=== PATIENT | female | born 1940 | race Caucasian/White ===

== ENCOUNTER 2016-09-09 13:33 | Inpatient (IN) | payer OTHER, MEDICARE ==
[~2016-09-09] VITALS: Ht 152.4 cm; Wt 154.0 kg
[~2016-09-09 13:33] MED LIST: ALBUTEROL 3 ML3 ML INH; AMLODIPINE10 MG PO; ANTIVERT 25MG #1 PAC PO; ATORVASTATIN CA80 MG PO; CHILDREN'S ASPI81 M1 PO; CIPRO 250MG250 MG PO; COREG 25 MG TAB25 MG PO; FAMOTIDINE20 MG PO; HYDRALAZINE HCL10 MG PO; LANTUS SOLOS100 U/ML SC; LASIX20 MG PO; LASIX40 MG PO; LIDODERM 5% PAT1 PAT EXT; NOVOLOG100 U/ML SC; NOVOLOG100 UNIT/2; ULTRAM50 M1 PO; VALSARTAN320 MG PO
--- NOTE | 2016-09-09 13:49 | ED CARDIAC/CP/PALPITATIONS ---
History of Present Illness General Chief Complaint: Dyspnea (COPD, CHF, Other) Stated Complaint: SOB Source: patient, old records Exam Limitations: no limitations Vital Signs & Intake/Output Vital Signs & Intake/Output Vital Signs Date Time Temp Pulse Resp B/P Pulse O2 O2 Flow FiO2 Ox Delivery Rate 09/09 2139 98.2 52 20 142/82 92 09/09 2131 Nasal Cannula 09/09 204 97.8 83 20 160/90 96 Aerosol Mask 09/09 1856 95 Nasal 45% Cannula 09/09 1832 80 158/90 96 Aerosol Mask 09/09 1622 138/88 09/09 1610 93 Nasal 45% Cannula 09/09 1503 56 94 09/09 1403 90 Nasal 5.0L Cannula 09/09 1335 79 22 144/91 90 Nasal 4.0L Cannula Allergies Coded Allergies: Fish Containing Products (Intermediate, RASH, VOMITING 09/09/16) SEAFOOD Penicillins (Mild, RASH 09/09/16) adhesive tape (Mild, RASH AND BURNING 09/09/16) alcohol (BURNING SKIN 09/09/16) shellfish derived (RASH, VOMITING 09/09/16) metformin (Intermediate, DIARRHEA, GI UPSET 09/09/16) Triage Nurses Notes Reviewed? yes Onset: Gradual Duration: getting worse Timing: recent history Radiation: no radiation Activities at Onset: activity HPI: Patient is a 76-year-old female with past medical history of CHF currently on twice a day Lasix, DANYELLE, diabetes type 2 insulin-dependent, hypertension, secondary heart block and which patient's oim consultant Dr. Lawrence who is brought in by ambulance for concerns of worsening shortness of breath. Patient states that she is compliant with medications Patient states that she is on 3.5 L at all times of oxygen supplementation however is having unrelieved shortness of breath symptoms. Patient states that she has noticed dyspnea on exertion. Denies any fever, chills, chest pain arm pain jaw pain nausea vomiting diarrhea. Patient does state that she has chronic lower extremity swelling with no changes. Denies any calf swelling hemoptysis recent travel or recent surgery or history of DVT or PE (DOYLE DEMARCO) Reconcile Medications Aspirin (Children's Aspirin) 81 MG TAB 1 TAB PO DAILY HEART HEALTH (Reported) Atorvastatin Calcium (Lipitor) 80 MG TAB 1 TAB PO DAILY CHOLESTEROL (Reported ) Famotidine 20 MG TAB 1 TAB PO DAILY GI (Reported) Furosemide (Lasix) 40 MG TAB 1 TAB PO BID htn HYDRALAZINE HCL (Hydralazine HCl) 10 MG TAB 10 MG PO TID HTN Insulin Aspart, Recombinant (Novolog) 100 U/ML DIANN 40 U SC QPM DIABETES ( Reported) Insulin Aspart, Recombinant (Novolog) 100 U/ML DIANN 35 U SC BID dm (Reported) Insulin-Lantus (Lantus) 100 UNIT/ML VIAL 45 UNITS SC BID DM (Reported) Meclizine HCl 25 MG TABLET 1 TAB PO PRN VERTIGO (Reported) Tramadol HCl (Ultram) 50 MG TABLET 1 TAB PO PRN PAIN (Reported) Valsartan 320 MG TAB 1 TAB PO DAILY HEART (Reported) (CHRISTINA GARCÍA,CHANDRA) Past History Travel History Traveled to [place] past 21 day No Medical History Any Pertinent Medical History? see below for history Neurological: peripheral neuropathy Cardiovascular: CHF, hypertension, hyperlipidemia, ?PVC'S Gastrointestinal: ACID REFLUX Renal: chronic kidney disease Endocrine: diabetes Other Medical Hx: Morbid obesity, second degree AV block, chronic edema History of MRSA: No History of VRE: No History of CDIFF: No Pneumonia Vaccine: 06/14/15 Influenza Vaccine: 06/14/15 Surgical History Surgical History: cholecystectomy, right knee Psychosocial History Who do you live with Patient/Self Services at Home None What is your primary language Turkmen Family History Family History, If Any: BROTHER FH: brain tumor Hx Contributory? No (DOYLE DEMARCO) Review of Systems Review of Systems Constitutional: Reports: no symptoms. EENTM: Reports: no symptoms. Respiratory: Reports: see HPI, short of breath. Denies: cough. Cardiovascular: Reports: see HPI, peripheral edema. GI: Reports: no symptoms. Genitourinary: Reports: no symptoms. Musculoskeletal: Reports: no symptoms. Skin: Reports: no symptoms. Neurological/Psychological: Reports: no symptoms. Hematologic/Endocrine: Reports: no symptoms. Immunologic/Allergic: Reports: no symptoms. All Other Systems: Reviewed and Negative (DOYLE DEMARCO) Physical Exam Physical Exam General Appearance: alert, awake, mild distress, obese Cardiovascular: regular rate/rhythm Comments: HEENT: Normal EENT exam, extraocular motion intact, no nystagmus. Pupils equally round and reactive to light. Nose is atraumatic. External auditory canal and Tympanic membranes clear. Pharynx normal. No swelling or edema. Neck: Supple, no lymphadenopathy, normal range of motion without pain or tenderness Back: Nontender, no CVA tenderness. Cardiovascular: Regular rate and rhythms no murmurs, normal JVP Respiratory: Chest nontender mild respiratory distress 2-4 word sentences Abdomen: Soft, nontender nondistended, no appreciable organomegaly. Normal bowel sounds. No ascites Extremity: +1 bilateral right lower extremity pitting edema- Left lower extremity noted +3 pitting edema no calf tenderness to palpation, normal and equal pulses. Neuro: Alert oriented x3, motor sensory normal, cranial nerves II through XII grossly intact. Skin: No appreciable rash on exposed skin, skin is warm and dry. Psych: Mood and affect is normal, memory and judgment is normal. Core Measures ACS in differential dx? No Severe Sepsis Present: No Septic Shock Present: No (LAMAR LOVELL,DOYLE) Progress Differential Diagnosis: AMI, aortic dissection, atrial fibrillation, cholecystitis, CHF/pulm edema, costochondritis, hyperkalemia, hypovolemia, hyperthyroid, hyperventilation, intracranial hemorrhage, musculoskeletal pain, myocarditis, pancreatitis, pericarditis, pneumonia, pneumothorax, PSVT, pulmonary embolism, PUD/GERD, PVCs/PACs, respiratory failure, rib fracture, sepsis, unstable angina, V-fib/V-Tach, WPW syndrome Plan of Care: Orders Procedure Date/time Status Vital Signs 09/09 2130 Active Teach/Educate 09/09 2130 Active Nutritional Intake, Monitor 09/09 2130 Active Isolation 09/09 2130 Active Patient Care Conference 09/09 2130 Active Activity/Ambulation 09/09 2130 Active CTA CHEST-PULMONARY EMBOLISM 09/09 2036 Active THERAPIST ORDERS 09/09 1850 Complete Admit to inpatient 09/09 1718 Active Patient Data 09/09 1704 Active LACTIC ACID 09/09 1659 Active ARTERIAL BLOOD GAS (GEN) 09/09 1359 Complete Telemetry/Electric Motor Assembler And Tester 09/09 1359 Active THYROID STIMULATING HORMONE 09/09 1359 Complete TROPONIN LEVEL 09/09 1359 Complete MAGNESIUM 09/09 1359 Complete LACTIC ACID 09/09 1359 Complete FREE T4 09/09 1359 Complete D-DIMER 09/09 1359 Complete COMPREHENSIVE METABOLIC PANEL 09/09 1359 Complete CBC WITHOUT DIFFERENTIAL 09/09 1359 Complete B-TYPE NATRIURETIC PEP (BNP) 09/09 1359 Complete FingerStick- Glucose 09/09 1357 Active Intake & Output 09/09 1355 Active EKG 09/09 1334 Active BIPAP 09/09 UNK Complete Nursing Misc 09/09 UNK Active Laboratory Tests 09/09/16 1438: Anion Gap 7, Estimated GFR 44 L, BUN/Creatinine Ratio 19.2, Glucose 65, Lactic Acid 1.1, Calcium 8.6, Magnesium 2.0, Total Bilirubin 0.5, AST 24, ALT 23, Alkaline Phosphatase 78, Troponin I 0.09, Eez-I-Mbxbrhjsglj Pept 2470 H, Total Protein 6.2 L, Albumin 3.0 L, Globulin 3.2, Albumin/Globulin Ratio 0.9 L, TSH 1.130, Free T4 1.88, D-Dimer 815 H, CBC w Diff NO MAN DIFF REQ, RBC 4.40, MCV 95.5, MCH 31.9 H, RDW 14.7 H, MPV 7.3 L, Gran % 80.7 H, Lymphocytes % 8.7 L , Monocytes % 9.0, Eosinophils % 1.0, Basophils % 0.6, Absolute Granulocytes 6.3 , Absolute Lymphocytes 0.7 L, Absolute Monocytes 0.7 H, Absolute Eosinophils 0.1, Absolute Basophils 0, PUBS MCHC 33.3 09/09/16 1420: pH 7.32 L, pCO2 61 *H, pO2 59 L, HCO3 32 H, ABG O2 Sat (Measured) 89.0 L, Carboxyhemoglobin 1.0 L, O2 Concentration % 6L, O2 Delivery Method NC, Phlebotomy Draw Site RIGHT RADIAL On initial exam patient was noted to have respiratory distress and which 5 L of nasal cannula oxygenation was not helping patient in which she was noted to have 85% oxygen saturation. Respiratory came down and initially tried BiPAP however patient did not tolerate this well and was she was then put on high flow oxygen supplementation and states she has significant resolution of shortness of breath. ABG shows concerns of CO2 retention and hypoxia Patient did have an elevation of d-dimer and which I did orderED a CT angiogram of patient's chest to rule out pulmonary embolism however monitor technician did place a call and stated that patient was unable to tolerate this image in the emergency room and requested this to be canceled due to a stat order, this was canceled I discussed by concern of CT angiogram evaluation with accepting physician DR. SPAIN who is aware that this was not performed in the emergency room Due to history of present illness and exam findings there is suspicion of CHF howeversuspicion of infectious respiratory process. Patient was given IV Lasix Discussed telemetry admission with who will take over FOR The patient' s care and evaluated patient and agrees with disposition and plan (LAMAR LOVELL,DOYLE) D/W DR SPAIN FOR ADMISSION TO TELEMETRY. (CHRISTINA GARCÍA,CHANDRA) Diagnostic Imaging: Viewed by Me: Radiology Read. Radiology Impression: SEE COMMENTS Initial ED EK BPM NORMAL SINUS RHYTHM, mOBITZ 1 av BLOCK wENCKEBACH, rbbb Prior EKG: unchanged Comments: PATIENT: CINTHIA AZEVEDO PRESENT AGE: 76 PATIENT ACCOUNT NO: [id number] : 41 LOCATION: [facility] ORDERING PHYSICIAN: DOYLE LOVELL SERVICE DATE: 09/09/164313 EXAM TYPE: RAD - XRY-PORTABLE CHEST XRAY EXAMINATION: XR PORTABLE CHEST CLINICAL INFORMATION: Shortness of breath. Congestive heart failure. COMPARISON: CTA chest 09/21/2015. Portable chest x-ray 09/21/2015. TECHNIQUE: Portable view of the chest was obtained. FINDINGS: Significantly limited exam secondary to patient body habitus and pulmonary hypoinflation. Bibasilar airspace opacities are indeterminate and could reflect atelectasis given low lung volumes or soft tissue attenuation given patient body habitus. However, bibasilar infiltrates secondary to infection or pulmonary edema cannot be entirely excluded. No large pleural effusions or pneumothoraces are identified. Cardiomediastinal contours are obscured. No visible acute osseous abnormality. IMPRESSION: Significantly limited exam secondary to patient body habitus and significant pulmonary hypoinflation. Bibasilar airspace opacities are indeterminate and could reflect atelectasis given low lung volumes although superimposed infection or pulmonary edema cannot be excluded in the appropriate clinical setting. PATIENT: CINTHIA AZEVEDO PRESENT AGE: 76 PATIENT ACCOUNT NO: [id number] : 41 LOCATION: [facility] ORDERING PHYSICIAN: DOYLE LOVELL SERVICE DATE: 09/09/162763 EXAM TYPE: US - US-EXT BILAT VENOUS DOPPLER EXAMINATION: US TRIPLEX LOWER EXTREMITY, BILATERAL CLINICAL INFORMATION: Bilateral lower extremity swelling. COMPARISON: None. TECHNIQUE: Color-flow triplex imaging with spectral analysis and compression Doppler were performed on the bilateral lower extremities. The examination is significantly limited secondary to body habitus, portable technique and inability of the patient to comply fully with the technologist's instructions. FINDINGS: Respiratory variation, normal compression and augmented flow are noted throughout the bilateral lower extremities. The visualized common femoral vein, superficial femoral vein, profunda femoral vein, popliteal vein and mid calf peroneal and posterior tibial venous segments show no evidence of deep venous thrombosis. There is no Estes's cyst. IMPRESSION: Normal triplex scan without evidence of deep venous thrombosis involving the bilateral lower extremities. Examination is limited, as above. (DOYLE DEMARCO) Departure Departure Disposition: STILL A PATIENT Condition: Fair Clinical Impression Primary Impression: CHF (congestive heart failure) Secondary Impressions: Respiratory failure Referrals: ALLEY GARCÍA,TATI APARICIO (PCP/Family) Referred to [facility] as new patient No Departure Forms: Customer Survey General Discharge Information Admission Note Spoke With: SUSAN SPAIN MD Documentation of Exam: Documentation of any treatments & extenuating circumstances including Concerns Regarding Discharge (functional status, medication knowledge or non-compliance, living conditions, etc.) that warrant an admission rather than observation: [ Discussed patient with Dr. SPAIN who agrees with telemetry admission for concerns of CHF which patient requires IV diuresis, cardiology consult, repeat labs, telemetry monitoring, echocardiogram, and further evaluation to rule out PE. Outpatient treatment at this time would be medically harmful due to critical status of respiratory failure ] (DOYLE DEMARCO) PA/DEBURRING AND TOOLING MACHINE OPERATOR Co-Sign Statement Statement: ED Attending supervision documentation- [X] I saw and evaluated the patient. I have also reviewed all the pertinent lab results and diagnostic results. I agree with the findings and the plan of care as documented in the PA's/DEBURRING AND TOOLING MACHINE OPERATOR's documentation. [X] I have reviewed the ED Record and agree with the PA's/DEBURRING AND TOOLING MACHINE OPERATOR's documentation. [] Additions or exceptions (if any) to the PAs/DEBURRING AND TOOLING MACHINE OPERATOR's note and plan are summarized below: [] (CHRISTINA GARCÍA,CHANDRA) Critical Care Note Critical Care Note Critical Care Time: 30-74 min (DOYLE DEMARCO)
--- NOTE | 2016-09-09 14:41 | RADIOLOGY REPORT ---
EXAMINATION: XR PORTABLE CHEST CLINICAL INFORMATION: Shortness of breath. Congestive heart failure. COMPARISON: CTA chest 09/21/2015. Portable chest x-ray 09/21/2015. TECHNIQUE: Portable view of the chest was obtained. FINDINGS: Significantly limited exam secondary to patient body habitus and pulmonary hypoinflation. Bibasilar airspace opacities are indeterminate and could reflect atelectasis given low lung volumes or soft tissue attenuation given patient body habitus. However, bibasilar infiltrates secondary to infection or pulmonary edema cannot be entirely excluded. No large pleural effusions or pneumothoraces are identified. Cardiomediastinal contours are obscured. No visible acute osseous abnormality. IMPRESSION: Significantly limited exam secondary to patient body habitus and significant pulmonary hypoinflation. Bibasilar airspace opacities are indeterminate and could reflect atelectasis given low lung volumes although superimposed infection or pulmonary edema cannot be excluded in the appropriate clinical setting.
[2016-09-09 14:50] LABS: ABSOLUTE BASOPHIL COUNT 0 /CUMM (0.0-0.2); ABSOLUTE EOSINOPHIL COUNT 0.1 /CUMM (0.0-0.7); ABSOLUTE GRANULOCYTE CT 6.3 /CUMM (1.4-6.5); ABSOLUTE LYMPH COUNT 0.7 /CUMM (1.2-3.4); ABSOLUTE MONOCYTE COUNT 0.7 /CUMM (0.10-0.60); BASOPHIL % 0.6 % (0.0-2.0); GRANULOCYTE % 80.7 % (42.2-75.2); MEAN CORPUSCULAR HGB 31.9 PG (27.0-31.0); MEAN CORPUSCULAR HGB CONC 33.3 G/DL (33.0-37.0); MEAN CORPUSCULAR VOLUME 95.5 FL (81.0-99.0); MEAN PLATELET VOLUME 7.3 FL (7.4-10.4); PLATELET COUNT 220 /CUMM (130-400); RBC DISTRIBUTION WIDTH 14.7 % (11.5-14.5); WHITE BLOOD CELL COUNT 7.8 /CUMM (4.8-10.8)
--- NOTE | 2016-09-09 18:31 | ULTRASOUND REPORT ---
EXAMINATION: US TRIPLEX LOWER EXTREMITY, BILATERAL CLINICAL INFORMATION: Bilateral lower extremity swelling. COMPARISON: None. TECHNIQUE: Color-flow triplex imaging with spectral analysis and compression Doppler were performed on the bilateral lower extremities. The examination is significantly limited secondary to body habitus, portable technique and inability of the patient to comply fully with the technologist's instructions. FINDINGS: Respiratory variation, normal compression and augmented flow are noted throughout the bilateral lower extremities. The visualized common femoral vein, superficial femoral vein, profunda femoral vein, popliteal vein and mid calf peroneal and posterior tibial venous segments show no evidence of deep venous thrombosis. There is no Estes's cyst. IMPRESSION: Normal triplex scan without evidence of deep venous thrombosis involving the bilateral lower extremities. Examination is limited, as above.
[2016-09-09] MEDS ORDERED: LANTUS100 UNIT/1 SC (18:40)
[2016-09-09] MEDS ORDERED: MECLIZINE HCL25 MG PO (18:44)
--- NOTE | 2016-09-09 19:49 | History & Physical ---
LOPEZ KELLY MD 09/09/161947: General Information and HPI Source of Information: patient, old records Exam Limitations: no limitations History of Present Illness: Patient is a 76 year old morbidly obese female with significant past medical history of type 2 diabetes, peripheral neuropathy, GERD, hypertension, hyperlipidemia, chronic kidney disease, secondary heart block, CHF on twice a day Lasix, COPD on 3.5 liter of oxygen at home presented to the ED with gradually progressive shortness of breath. According to the patient patient started having nausea, vomiting and diarrhea after she had flu shot and which recovered back over the counter medication. Later she started having shortness of breath along with increase bilateral pedal edema. That's why she increases the amount of Lasix. She is taking from twice a day to 3 times a day. She denies chest pain, fever, chills, abdominal pain, diarrhea, constipation, dysuria. Patient claims that she is noncompliant with the medication. After coming to the telemetry, patient refuses for CTA Allergies/Medications Allergies: Coded Allergies: Fish Containing Products (Intermediate, RASH, VOMITING 09/09/16) SEAFOOD Penicillins (Mild, RASH 09/09/16) adhesive tape (Mild, RASH AND BURNING 09/09/16) alcohol (BURNING SKIN 09/09/16) shellfish derived (RASH, VOMITING 09/09/16) metformin (Intermediate, DIARRHEA, GI UPSET 09/09/16) Home Med list Aspirin (Children's Aspirin) 81 MG TAB 1 TAB PO DAILY HEART HEALTH (Reported) Atorvastatin Calcium (Lipitor) 80 MG TAB 1 TAB PO DAILY CHOLESTEROL (Reported ) Famotidine 20 MG TAB 1 TAB PO DAILY GI (Reported) Furosemide (Lasix) 40 MG TAB 1 TAB PO BID htn HYDRALAZINE HCL (Hydralazine HCl) 10 MG TAB 10 MG PO TID HTN Insulin Aspart, Recombinant (Novolog) 100 U/ML DIANN 40 U SC QPM DIABETES ( Reported) Insulin Aspart, Recombinant (Novolog) 100 U/ML DIANN 35 U SC BID dm (Reported) Insulin-Lantus (Lantus) 100 UNIT/ML VIAL 45 UNITS SC BID DM (Reported) Meclizine HCl 25 MG TABLET 1 TAB PO PRN VERTIGO (Reported) Tramadol HCl (Ultram) 50 MG TABLET 1 TAB PO PRN PAIN (Reported) Valsartan 320 MG TAB 1 TAB PO DAILY HEART (Reported) Past History Travel History Traveled to [place] past 21 day No Medical History Neurological: peripheral neuropathy Cardiovascular: CHF, hypertension, hyperlipidemia, ?PVC'S Gastrointestinal: ACID REFLUX Renal: chronic kidney disease Endocrine: diabetes Other Medical Hx: Morbid obesity, second degree AV block, chronic edema History of MRSA: No History of VRE: No History of CDIFF: No Pneumonia Vaccine: 06/14/15 Influenza Vaccine: 06/14/15 Surgical History Surgical History: cholecystectomy, right knee Past Family/Social History Family History Relations & Conditions if any BROTHER FH: brain tumor Psychosocial History Services at Home: None Review of Systems Review of Systems Constitutional: Reports: weakness. Denies: fever, malaise, unexplained weight loss. EENTM: Denies: no symptoms. Cardiovascular: Reports: edema, orthopena, palpitations, peripheral edema. Denies: syncope. Respiratory: Reports: orthopnea, short of breath. Denies: cough, hemoptysis, sputum production, stridor, wheezing. GI: Denies: abdominal pain, bloating, constipation, diarrhea, distention, nausea, bloody stool. Genitourinary: Denies: discharge, dysuria, frequency, hematuria. Musculoskeletal: Denies: back pain. Skin: Denies: no symptoms. Neurological/Psychological: Denies: no symptoms. Exam & Diagnostic Data Last 24 Hrs of Vital Signs/I&O Vital Signs Date Time Temp Pulse Resp B/P Pulse O2 O2 Flow FiO2 Ox Delivery Rate 09/09 2139 98.2 52 20 142/82 92 09/09 2131 Nasal Cannula 09/09 2041 97.8 83 20 160/90 96 Aerosol Mask 09/09 1856 95 Nasal 45% Cannula 09/09 1832 80 158/90 96 Aerosol Mask 09/09 1622 138/88 09/09 1610 93 Nasal 45% Cannula 09/09 1503 56 94 09/09 1403 90 Nasal 5.0L Cannula 09/09 1335 79 22 144/91 90 Nasal 4.0L Cannula Intake & Output 09/09 1600 09/09 0800 09/09 0000 Intake Total 0 Output Total Balance 0 Intake, Oral 0 Patient 149.685 kg Weight Physical Exam General Appearance Alert, Oriented X3, Cooperative, No Acute Distress Skin No Rashes, No Breakdown HEENT Atraumatic, PERRLA, EOMI Neck Supple, No JVD Cardiovascular Regular Rate, Normal S1, Normal S2 Lungs Clear to Auscultation, decrease air entry bilaterally Abdomen Soft, No Tenderness, distended Neurological Normal Speech Extremities bilateral leg swelling, pitting edema, left is more worse than the right Vascular cannot be assessed properly due to severe edema Assessment/Plan Assessment: Assement and plan - Vital signs at the time of admission-temperature 97.8, pulse 83, respiratory rate 20, blood pressure 160/90, SPO2 96% on aerosol mask. ABG - pH -7.32, PCO2 61, PO2 59, bicarbonate 32 Chest [id number]-rru-kqycjeyqm hypoinflation. Bibasilar airspace opacities are indeterminate and could reflect atelectasis given low lung volumes. Venous Doppler study-Normal triplex scan without evidence of deep venous thrombosis PFT(01/03/2016) -Moderately severe restrictive ventilatory defect with exercise induced desaturation and resting hypoxemia. There is evidence of increased resting bronchomotor tone. Problem list - Hypercarbic respiratory failure under evaluation CHF on Lasix Hypertension Hyperlipidemia Chronic kidney disease type 2 Diabetes mellitus Morbid obesity Plan - Hypercarbic respiratory failure under evaluation probably obesity hypoventilation syndrome/COPD acute exacerbation under evaluation,on 3.5 liter of oxygen at home * We will take the pulmonology consult and followed their recommendation * TRC/nebulization * We'll continue oxygen with goal of SPO2 of more than 92% * We will do CTA to r/o PE * Venous Doppler study showed no evidence of DVT * CXR is showing bibasilar atelectasis, we will do sputum culture to r/o infection. * Vitals every shift * If patient become febrile, we will take culture and consider antibiotics. CAD /CHF on Lasix * We will check serial EKG/Troponin to rule out ACS * We will place cardiology consult Dr Lawrence and follow their recms * We will f/u echo * We will continue Aspirin. * We lizbet give her Ing lasix 40mg BID * Strict I/O charting Hypertension * We will continue home medication Hydralazine Hyperlipidemia * We will continue home medication tab atorvastatin 80mg HS Chronic kidney disease * We will stop nephrotoxic medication * regulary monitor BEP * If creatinine get worse than will consider nephrology consult type 2 Diabetes mellitus * Patient presented with hypoglycemia. * We will check blood sugar every 4 hrly and give Novalog according to sliding scale. Morbid obesity * We will advise for weight loss diet and exercise after she get recovered. Diet - Heart Healthy diet DVT prophylaxis -Heparin /ALPS Code Status - FC As Ranked By This Provider Problem List: 1. CHF (congestive heart failure) 2. Dyslipidemia 3. Diabetes mellitus type 2 4. Respiratory failure 5. Hypercapnic respiratory failure Core Measures/Miscellaneous Acute Coronary Syndrome ACS Diagnosis: No Cerebrovascular Accident CVA/TIA Diagnosis: No Congestive Heart Failure CHF Diagnosis: No Venous Thromboembolism VTE Risk Factors: Age > 40, Obesity VTE Prophylaxis Ordered Inpt: Mechanical (ALPS/TEDS) No Mech VTE prophylaxis d/t: No contraindications No VTE Pharm Prophylaxis d/t: No contraindications VTE Diagnosis: No VTE Type: NONE VTE Confirmed by (Test): DUPLEX SCAN LOWER EXT Severe Sepsis Severe Sepsis Present: No Septic Shock Septic Shock Present: No Miscellaneous Documentation Attending Case Discussed With: JUDIT GARCÍAKELLEE Primary Care Physician: TATI HAGER MD Patient sees these Specialists Dr de la torre Level of Patient Care: Telemetry SID GARCÍA, [facility] 09/09/162033: Attending MD Review Statement Attending Statement Attending MD Statement: examined this patient, discuss w/resident/PA/COMMISSIONED SECURITY OFFICER, agreed w/resident/PA/COMMISSIONED SECURITY OFFICER Attending Assessment/Plan: 76 yo morbidly obese F with h/o T2DM, HTN, chronic diastolic CHF on baseline 3.5 LO2 via NC, CKD stage 3B, second degree heart block type 1, is here for worsening dyspnea on exertion and rest. She reports it started around 4 weeks back. She got her flu shot, after she was persistently sick flu like symptoms associated with nausea and vomiting. Her PCP advised her to come for a follow up but patient did not wish to travel to [place]. Patient has a visiting nurse who asked her to be evaluated in the ER last week, but patient wished to spend [place] with family. Over the past week, she has had cough with light doty to clear phlegm, nonbloody diarrhea, gradually worsening dyspnea on minimal exertion, orthopnea and LE edema extending to her abdomen. She did admit to missing a few doses of lasix, as she forgets to take them. Denies fever, chills, chest pain, lightheadedness or palpitations. She has an aide who comes in few hours everyday. She walks with walker or cane. Not very active, drinks diet tea/ soda, gets meals on wheels, no added salt. Cardio [facility] Roel [facility] She was last admitted in Sep 2015 for CHF exacerbation, was to follow up with Pulm for sleep study which has not been done. PFT (December 2015) shows moderately severe restrictive ventilatory defect with exercise induced desaturation and resting hypoxemia, increased resting bronchomotor tone. Vitals: afebrile, HR 80's, BP 140/80, sats 90% on 5L ? 92% on high flow nasal cannula (45%). Chest exam: reduced breath sounds, LE 3+ pitting edema (L>R), edema extending to lower abdomen. Labs: D-dimer 815, bicarb 35, BUN 23, creat 1.2 (baseline), trop neg, proBNP 2470, AB.32/61/59/32 (respiratory acidosis compensated with metabolic alkalosis). CXR: bibasilar opacities ?atelectasis vs. pulmonary edema. LE doppler neg for DVT. EKG: SR, RBBB (old), no acute changes. Echo (2015) EF > 60%, LVH. 1. Acute on chronic hypoxic and hypercarbic respiratory failure in the setting of acute on chronic diastolic CHF with ?restrictive lung disease, possible obesity hypoventilation syndrome ?sleep apnea. Patient received IV lasix in ER, urine output not measured. She also refused Bipap in ER, she was then placed on high flow nasal cannula. CTA chest was ordered but patient felt anxious and refused it as well. Will keep on TRC nebs, IST, strict I/O's, daily weights, IV lasix 40 BID, rule out ACS, Echo, Cardio consult. One dose of solumedrol given, will hold off further steroids. Pulm consult in AM. No need for antibiotics. 2. CKD stable. Monitor renal functions while on lasix. Ct. valsartan. DVT ppx Hep SC. Full code. KEELY WILLIAMSON 09/09/162125: Resident Review Statement Resident Statement: examined this patient, discussed with investigator internal affairs, agreed with investigator internal affairs Other Findings: Patient is a 76-year-old woman with past medical history significant diastolic heart failure( on 3.5 L of oxygen at baseline),questionable COPD, history of type 2 diabetes mellitus, chronic kidney disease hypertension,hyperlipidemia, history of second-degree heart block was brought into an ambulance with a chief complaint of worsening breathing for the last couple of days. Patient mentioned that her symptoms started after she received flu shot 2015 with nausea vomiting and diarrhea, she took [id number] medications and her diarrhea improved. Afterwards she started having trouble breathing first at exertion and now at rest as well. She has been using 4 pillows at bedtime( previously 3 pillows).she has a history of bilateral lower extremity swelling , and is on Lasix 40 mg twice a day but recently she has been taking Lasix 40 mg 3 times a day because the cause of her worsening left lower extremity swelling. She admitted that she is not very compliantwith her medications. Last week her visiting nurse encouraged her to come to the ER for evaluation but she refused as she wanted to spend time at [place] with the family. In the ED patient reported shortness of breath with some chest discomfort and palpitations. Her diarrhea is improved now denied any abdominal pain. No urinary complaints. Denies fever or chills. Afternoon patient was admitted in March 2016 for acute CHF exacerbation. She was seen by casting trucker and recommended pulmonary function tests and sleep study as an outpatient but patient never had it done. Vitals on admission: Temperature 90.7, pulse 22, blood pressure 144/91, was on 4 L before now on 45% high flow oxygen saturation more than 92%. On examination General Appearance: Obese ,Alert, in mild distress. Skin: Grossly normal HEENT: PEERLA Neck: Supple, No JVD Cardiovascular: Regular Rate, Normal S1, Normal S2, No Murmurs Lungs: Decreased expirations bilaterally without any wheeze. Abdomen: Normal Bowel Sounds, Soft, No Tenderness Neurological: Normal Speech, Strength at 5/5 X4 Ext, Cranial Nerves 3-12 NL, Reflexes 2+ Extremities: 3+ pitting edema in the left lower extremity 2+ pitting edema in the right lower extremity Vascular: Normal Pulses. Pertinent labs: WBC count 7.8, H&H 14.0/42.0 limited BUN and creatinine 23/1.2, with GFR of 44 elevated proBNP 2470 elevated d-dimer 8:15 ABG showed pH of 7.32 with PCO2 of 61 PO2 of 59. First troponin negative EKG done in the ED showed normal sinus rhythm with some PVCs Mobitz type I block old right bundle branch block Chest x-ray Bibasilar airspace opacities are indeterminate and could reflect atelectasis given low lung volumes although superimposed infection or pulmonary edema cannot be excluded in the appropriate clinical setting. Lower extremity Doppler to rule out any underlying DVT Assessment/plan: 1. Acute hypoxic hypercarbic respiratory failure due to acute on chronic diastolic CHF exacerbation/pulmonary embolism(elevated d-dimer): * We'll admit the patient to telemetry floor * Sugars evening dose of IV Lasix 60 mg in the ED. We'll continue with IV Lasix 40 mg twice a day. Watch for any worsening kidney functions. * Monitor in's and O's with daily weight checks. * Patient is currently refusing to get CTA chest/CTchest as she is unable to lie straight and the CAT scan machine. We will try to convince the patient, if she agrees will do CT chest to rule out PE/pulmonary infiltrate.. * Obtain echocardiogram * Will call cardiology(Dr. Lawrence) in the morning. * We will do serial troponin EKG to rule out any underlying ACS. * Continuous and keep saturations above 92% * Watch for any hemodynamic instability. 2.Possible COPD exacerbation: * Will give one dose of IV Solu-Medrol was on 125 mg. * Hold off any more steroids. Obtain pulmonology consult with Dr. Walker in the morning for further recommendations. * Continue TRC nebs. 3. Atelectasis versus pneumonia; * Monitor vitals every 4 hours * Hold off any antibodies for now * Consider sputum culture * Continue with incentive spirometry for now * If patient becomes febrile, we will send blood cultures and will consider starting the patient on antibiotics. 4. History of hypertension and hyperlipidemia * Continue aspirin hydralazine. 5. History of TYPE 2 diabetes mellitus * Blood sugar levels in the ED was below 50 patient was given dextrose in the ED and sugar levels improved to 117. * Will hold long-acting insulin(Levemir for now) * Continue NovoLog sliding scale * Accu-Cheks. 6. Stable chronic kidney disease * Continue with valsartan * Repeat BEP tomorrow * Avoid any nephrotoxic agents * As patient is getting IV Lasix, if kidney functions worse consider nephrology consult. 7. DVT prophylaxis with subcutaneous heparin 8. Jqro-fj-gudseiri controlled with Tylenol and tramadol. 9. Patient is full code
--- NOTE | 2016-09-09 20:34 | Admission Certification ---
Admission Certification Certification Statement - As attending physician, I certify that at the time of - admission, based on clinical presentation, severity of - symptoms, need for further diagnostic testing and - therapeutic interventions, and risk of adverse outcomes - without in-hospital treatment, in my clinical assessment, - this patient requires an acute hospital stay for a minimum - of two nights or longer. I have also considered psychsocial - factors such as support system, advanced age, financial - issues, cognitive issues, and failed out-patient treatments, - past re-admission history, safety of patient, and lack of - compliance as applicable. Specific rationale supporting this admission is: Acute on chronic hypoxic and hypercarbic respiratory failure. Acute on chronic diastolic CHF exacerbation with ?sleep apnea vs. obesity hypoventilation syndrome.
[2016-09-09 21:39] VITALS: BP 142/82
[2016-09-10 06:28] LABS: ABSOLUTE BASOPHIL COUNT 0 /CUMM (0.0-0.2); ABSOLUTE EOSINOPHIL COUNT 0 /CUMM (0.0-0.7); ABSOLUTE GRANULOCYTE CT 7.5 /CUMM (1.4-6.5); ABSOLUTE LYMPH COUNT 0.6 /CUMM (1.2-3.4); ABSOLUTE MONOCYTE COUNT 0.1 /CUMM (0.10-0.60); BASOPHIL % 0.2 % (0.0-2.0); EOSINOPHIL % 0.3 % (0-5); GRANULOCYTE % 91.8 % (42.2-75.2); HEMATOCRIT 43.9 % (37-47); MEAN CORPUSCULAR HGB 31.7 PG (27.0-31.0); MEAN CORPUSCULAR HGB CONC 33.2 G/DL (33.0-37.0); MEAN CORPUSCULAR VOLUME 95.5 FL (81.0-99.0); MEAN PLATELET VOLUME 8.1 FL (7.4-10.4); PLATELET COUNT 227 /CUMM (130-400); RBC DISTRIBUTION WIDTH 14.8 % (11.5-14.5); WHITE BLOOD CELL COUNT 8.2 /CUMM (4.8-10.8)
[2016-09-10 08:18] VITALS: BP 170/88
--- NOTE | 2016-09-10 10:25 | PN- Housestaff ---
FIONA SALINAS MD 09/10/16 1024: Subjective Follow-up For: CHF exacerbation Complaints: sob, cough, leg swelling Tele-Events Since Last Visit: Normal sinus rhythm with first-degree AV block and right bundle branch block Subjective: Patient noted in respiratory distress using accessory muscles on Hi-flow oxygen. She complains of shortness of breath and cough with increase bilateral lower extremity swelling. Denies any chest pain, nausea, vomiting, abdominal pain, urinary symptoms. Review of Systems Constitutional: Reports: see HPI. Objective Last 24 Hrs of Vital Signs/I&O Vital Signs Date Time Temp Pulse Resp B/P Pulse O2 O2 Flow FiO2 Ox Delivery Rate 09/10 1004 170/88 09/10 1004 170/88 09/10 0949 92 Nasal 45% Cannula 09/10 0945 Nasal 45% Cannula 09/10 0818 98.3 96 15 17088 94 Nasal Cannula 09/10 0800 92 Nasal 45% Cannula 09/10 0533 90 Nasal 45% Cannula 09/10 0132 85 140/80 09/10 0026 91 Nasal 45% Cannula 09/10 0000 Nasal 45% Cannula 09/09 2240 91 Nasal 45% Cannula 09/09 2139 98.2 52 20 142/82 92 09/09 2131 Nasal Cannula 09/09 2041 97.8 83 20 160/90 96 Aerosol Mask 09/09 1856 95 Nasal 45% Cannula 09/09 1832 80 158/90 96 Aerosol Mask 09/09 1622 138/88 09/09 1610 93 Nasal 45% Cannula 09/09 1503 56 94 09/09 1403 90 Nasal 5.0L Cannula Intake & Output 09/10 1600 09/10 0800 09/10 0000 Intake Total 240 Output Total 1200 1 Balance -1200 239 Intake, Oral 240 Output, Other 1 Output, Urine 1200 Patient 335 lb 338 lb Weight Physical Exam General Appearance: Alert, Oriented X3, Cooperative, Moderate Distress Skin: No Rashes HEENT: Atraumatic, PERRLA, EOMI, Mucous Membr. moist/pink Neck: Supple, No JVD Lymphatic: Cervical nl Cardiovascular: Regular Rate, Normal S1, Normal S2, No Murmurs Lungs: poor air entery b/l with bibasillar crackles Abdomen: Normal Bowel Sounds, Soft Neurological: Normal Speech, Normal Tone, Sensation Intact Extremities: b/l le pitting 3+ edema Vascular: Pulses Symmetrical Current Medications: Current Medications Sig/Thanh Start time Last Medication Dose Route Stop Time Status Admin Acetaminophen 650 MG Q6P PRN 09/09 2215 AC PO Albuterol Sulfate 3 ML Q4P PRN 09/10 1000 AC INH Aspirin 81 MG DAILY 09/10 1000 AC 09/10 PO 0958 Atorvastatin Calcium 80 MG 1700 09/10 1700 AC PO Dextrose 0 .STK-MED ONE 09/09 1416 DC IV Dextrose 25 GM ONCE ONE 09/09 1415 DC 09/09 IV 09/09 1416 1445 Famotidine 20 MG DAILY 09/10 1000 AC 09/10 PO 0958 Furosemide 40 MG BID 09/09 2230 AC 09/10 IV 0954 Furosemide 0 .STK-MED ONE 09/09 1416 DC IV Furosemide 60 MG ONCE ONE 09/09 1415 DC 09/09 IV 09/09 1416 1445 Heparin Sodium 5,000 UNIT Q8 09/10 0600 AC 09/10 (Porcine) SC 0551 Hydralazine HCl 25 MG TID 09/10 1600 AC PO Hydralazine HCl 10 MG TID 09/09 2245 DC 09/10 PO 1004 Insulin Aspart 0 TIDAC/HS 09/10 0800 AC 09/10 SC 1137 Insulin Detemir 30 UNITS BID 09/10 1156 AC 09/10 SC 1253 Insulin Detemir 45 UNITS BID 09/09 2232 DC SC Losartan Potassium 100 MG DAILY 09/10 1000 DC 09/10 PO 1004 Methylprednisolone 125 MG ONCE ONE 09/09 2230 DC 09/10 IV 09/09 2231 0132 Tramadol HCl 50 MG Q12 09/09 2359 AC 09/10 PO 0958 Last 24 Hrs of Lab/Chris Results Last 24 Hrs of Labs/Mics: Laboratory Tests 09/10/16 0535: Anion Gap 10, Estimated GFR 40 L, BUN/Creatinine Ratio 19.2, Troponin I 0.13 *H , CBC w Diff NO MAN DIFF REQ, RBC 4.60, MCV 95.5, MCH 31.7 H, RDW 14.8 H, MPV 8.1, Gran % 91.8 H, Lymphocytes % 6.9 L, Monocytes % 0.8 L, Eosinophils % 0.3 , Basophils % 0.2, Absolute Granulocytes 7.5 H, Absolute Lymphocytes 0.6 L, Absolute Monocytes 0.1 L, Absolute Eosinophils 0, Absolute Basophils 0, PUBS MCHC 33.2 09/10/16 0500: Troponin I Cancelled 09/10/16 0150: Troponin I 0.13 *H 09/10/16 0150: Lactic Acid 1.0 09/09/16 1438: Anion Gap 7, Estimated GFR 44 L, BUN/Creatinine Ratio 19.2, Glucose 65, Lactic Acid 1.1, Calcium 8.6, Magnesium 2.0, Total Bilirubin 0.5, AST 24, ALT 23, Alkaline Phosphatase 78, Troponin I 0.09, Yfl-[id number]-Bbstfettsuv Pept 2470 H, Total Protein 6.2 L, Albumin 3.0 L, Globulin 3.2, Albumin/Globulin Ratio 0.9 L, TSH 1.130, Free T4 1.88, D-Dimer 815 H, CBC w Diff NO MAN DIFF REQ, RBC 4.40, MCV 95.5, MCH 31.9 H, RDW 14.7 H, MPV 7.3 L, Gran % 80.7 H, Lymphocytes % 8.7 L , Monocytes % 9.0, Eosinophils % 1.0, Basophils % 0.6, Absolute Granulocytes 6.3 , Absolute Lymphocytes 0.7 L, Absolute Monocytes 0.7 H, Absolute Eosinophils 0.1, Absolute Basophils 0, PUBS MCHC 33.3 09/09/16 1420: pH 7.32 L, pCO2 61 *H, pO2 59 L, HCO3 32 H, ABG O2 Sat (Measured) 89.0 L, Carboxyhemoglobin 1.0 L, O2 Concentration % 6L, O2 Delivery Method NC, Phlebotomy Draw Site RIGHT RADIAL Microbiology 09/09 2219 LOWER RESP: Respiratory Culture - CAN Cancelled: NO SAMPLE COLLECTEDE` 09/09 2219 LOWER RESP: Gram Stain - CAN Cancelled: NO SAMPLE COLLECTEDE` Assessment/Plan Assessment: 1. Shortness of breath likely multifactorial including CHF exacerbation, component of COPD, obesity hypoventilation syndrome, undiagnosed sleep apnea - Strict MARCELO's Continue IV Lasix 40 twice a day Repeat chest x-ray in a.m. Cardiology consult appreciated Follow-up pulmonary evaluation Daily weight TRC Patient refused CT angiogram to rule out pulmonary embolism Is 2. Hypertension Held home dose losartan due to history of CKD Increase hydralazine dose to 25 mg 3 times a day 3. CKD stage III Monitor renal function on IV diuretic regimen Held losartan 4. Chronic back pain Continue tramadol and Tylenol as needed for pain 5. Type 2 diabetes Patient noted hypoglycemic event on admission Continue Accu-Cheks Start with lower dose of basal insulin 30 units twice a day NovoLog sliding scale 6. DVT prophylaxis Subcutaneous heparin Problem List: 1. CHF (congestive heart failure) 2. Dyslipidemia 3. Diabetes mellitus type 2 Pain Ratin Pain Location: back Pain Goal: Pain 4 or less Pain Plan: tylenol Tomorrow's Labs & Rationales: bep DVT/Prophylaxis: pharmacological ELEONORA NIETO MD 09/10/16 1425: Attending MD Review Statement Attending Statement Attending MD Statement: examined this patient, discuss w/resident/PA/HAULAGE ENGINE OPERATOR, agreed w/resident/PA/HAULAGE ENGINE OPERATOR, reviewed EMR data (avail), discussed with nursing, discussed with case mgmt, reviewed images, amended to note Attending Assessment/Plan: Patient seen and examined, still very short of breath. Requiring high flow oxygen. Vital Signs Date Time Temp Pulse Resp B/P Pulse O2 O2 Flow FiO2 Ox Delivery Rate 09/10 1004 170/88 09/10 1004 170/88 09/10 0949 92 Nasal 45% Cannula 09/10 0945 Nasal 45% Cannula 09/10 0818 98.3 96 15 170/88 94 Nasal Cannula 09/10 0800 92 Nasal 45% Cannula 09/10 0533 90 Nasal 45% Cannula 09/10 0132 85 140/80 09/10 0026 91 Nasal 45% Cannula 09/10 0000 Nasal 45% Cannula 09/09 2240 91 Nasal 45% Cannula 09/09 2139 98.2 52 20 142/82 92 09/09 2131 Nasal Cannula 09/09 2041 97.8 83 20 160/90 96 Aerosol Mask 09/09 1856 95 Nasal 45% Cannula 09/09 1832 80 158/90 96 Aerosol Mask 09/09 1622 138/88 09/09 1610 93 Nasal 45% Cannula 09/09 1503 56 94 on exam; aox3, nad. cv; s1, s2, rrr. resp; b/l basialr carckles. abd; obese, nt, bs+ ext; 3+ edema b/l. Laboratory Tests 09/10 09/10 09/10 0535 0500 0150 Chemistry Sodium (137 - 145 mmol/L) 141 Potassium (3.5 - 5.1 mmol/L) 4.4 Chloride (98 - 107 mmol/L) 97 L Carbon Dioxide (22 - 30 mmol/L) 34 H Anion Gap (5 - 16) 10 BUN (7 - 17 mg/dL) 25 H Creatinine (0.5 - 1.0 mg/dL) 1.3 H Estimated GFR (>60 ml/min) 40 L BUN/Creatinine Ratio (7 - 25 %) 19.2 Troponin I (< 0.11 ng/ml) 0.13 *H Cancelled 0.13 *H Hematology CBC w Diff NO MAN DIFF REQ WBC (4.8 - 10.8 /CUMM) 8.2 RBC (4.20 - 5.40 /CUMM) 4.60 Hgb (12.0 - 16.0 G/DL) 14.6 Hct (37 - 47 %) 43.9 MCV (81.0 - 99.0 FL) 95.5 MCH (27.0 - 31.0 PG) 31.7 H RDW (11.5 - 14.5 %) 14.8 H Plt Count (130 - 400 /CUMM) 227 MPV (7.4 - 10.4 FL) 8.1 Gran % (42.2 - 75.2 %) 91.8 H Lymphocytes % (20.5 - 51.1 %) 6.9 L Monocytes % (1.7 - 9.3 %) 0.8 L Eosinophils % (0 - 5 %) 0.3 Basophils % (0.0 - 2.0 %) 0.2 Absolute Granulocytes (1.4 - 6.5 /CUMM) 7.5 H Absolute Lymphocytes (1.2 - 3.4 /CUMM) 0.6 L Absolute Monocytes (0.10 - 0.60 /CUMM) 0.1 L Absolute Eosinophils (0.0 - 0.7 /CUMM) 0 Absolute Basophils (0.0 - 0.2 /CUMM) 0 PUBS MCHC (33.0 - 37.0 G/DL) 33.2 09/10 09/09 0150 1438 Chemistry Sodium (137 - 145 mmol/L) 141 Potassium (3.5 - 5.1 mmol/L) 3.9 Chloride (98 - 107 mmol/L) 98 Carbon Dioxide (22 - 30 mmol/L) 35 H Anion Gap (5 - 16) 7 BUN (7 - 17 mg/dL) 23 H Creatinine (0.5 - 1.0 mg/dL) 1.2 H Estimated GFR (>60 ml/min) 44 L BUN/Creatinine Ratio (7 - 25 %) 19.2 Glucose (65 - 99 mg/dL) 65 Lactic Acid (0.7 - 2.1 mmol/L) 1.0 1.1 Calcium (8.4 - 10.2 mg/dL) 8.6 Magnesium (1.6 - 2.3 mg/dL) 2.0 Total Bilirubin (0.2 - 1.3 mg/dL) 0.5 AST (14 - 36 U/L) 24 ALT (9 - 52 U/L) 23 Alkaline Phosphatase (<127 U/L) 78 Troponin I (< 0.11 ng/ml) 0.09 Ufc-D-Wuplbcakyzk Pept (<125 pg/mL) 2470 H Total Protein (6.3 - 8.2 g/dL) 6.2 L Albumin (3.5 - 5.0 g/dL) 3.0 L Globulin (1.9 - 4.2 gm/dL) 3.2 Albumin/Globulin Ratio (1.1 - 2.2 %) 0.9 L TSH (0.270 - 4.200 uIU/mL) 1.130 Free T4 (0.78 - 2.44 ng/dL) 1.88 Coagulation D-Dimer (70 - 232 ng/ml) 815 H Hematology CBC w Diff NO MAN DIFF REQ WBC (4.8 - 10.8 /CUMM) 7.8 RBC (4.20 - 5.40 /CUMM) 4.40 Hgb (12.0 - 16.0 G/DL) 14.0 Hct (37 - 47 %) 42.0 MCV (81.0 - 99.0 FL) 95.5 MCH (27.0 - 31.0 PG) 31.9 H RDW (11.5 - 14.5 %) 14.7 H Plt Count (130 - 400 /CUMM) 220 MPV (7.4 - 10.4 FL) 7.3 L Gran % (42.2 - 75.2 %) 80.7 H Lymphocytes % (20.5 - 51.1 %) 8.7 L Monocytes % (1.7 - 9.3 %) 9.0 Eosinophils % (0 - 5 %) 1.0 Basophils % (0.0 - 2.0 %) 0.6 Absolute Granulocytes (1.4 - 6.5 /CUMM) 6.3 Absolute Lymphocytes (1.2 - 3.4 /CUMM) 0.7 L Absolute Monocytes (0.10 - 0.60 /CUMM) 0.7 H Absolute Eosinophils (0.0 - 0.7 /CUMM) 0.1 Absolute Basophils (0.0 - 0.2 /CUMM) 0 PUBS MCHC (33.0 - 37.0 G/DL) 33.3 A/P; 76 y/o F with pmh sig for chronic resp failure, Ch diastolic chf, type 2 diabetes, peripheral neuropathy, GERD, hypertension, chronic kidney disease stage III, hyperlipidemia, chronic kidney disease, admitted with acute on chronic diastolic CHF exacerbation. She also has high troponin likely secondary to demand ischemia. Patient currently getting IV Lasix. Please monitor strict intake and output and daily weights. Continue oxygen. Patient on Levemir and sliding scale insulin for diabetes. Patient refused pulmonary angiogram. Agree with pulmonology evaluation. Continue TRC nebs and other medicines. Patient started on hydralazine as losartan was stopped per cardiology recommendations. Creatinine is at baseline. DVT prophylaxis: Heparin subcutaneous.
--- NOTE | 2016-09-10 11:10 | Cons- Cardiology ---
General Information and HPI Consulting Request Date of Consult: 09/10/16 Requested By: SUSAN SPAIN MD Reason for Consult: Shortness of breath. Source of Information: patient, old records Exam Limitations: clinical condition, poor historian History of Present Illness: Ms. Germán Barnes is a 76 year-old female with a history of morbid obesity, former heavy tobacco use, COPD, hypertension, dyslipidemia, diabetes mellitus, chronic kidney disease, ventricular ectopy, intermittent second degree atrioventricular block (Mobitz type I), left ventricular hypertrophy, systolic/ diastolic dysfunction, and previous biventricular heart failure who presented with several week complaint of progressive shortness of breath, weight gain, intermittent cough productive of "brownish" sputum, orthopnea, and paroxysmal nocturnal dyspnea. She does admit to a flu-like syndrome (nausea, vomiting, diarrhea, body aches, etc.) a month or so ago that resolved spontaneously. She then felt reasonably well for a few days but then again became symptomatic as described above. She denies any recent chest discomfort, palpitations, change in her chronic lower extremity edema (left greater than right), etc. Allergies/Medications Allergies: Coded Allergies: Fish Containing Products (Intermediate, RASH, VOMITING 09/09/16) SEAFOOD Penicillins (Mild, RASH 09/09/16) adhesive tape (Mild, RASH AND BURNING 09/09/16) alcohol (BURNING SKIN 09/09/16) shellfish derived (RASH, VOMITING 09/09/16) metformin (Intermediate, DIARRHEA, GI UPSET 09/09/16) Home Med List: Aspirin (Children's Aspirin) 81 MG TAB 1 TAB PO DAILY HEART HEALTH (Reported) Atorvastatin Calcium (Lipitor) 80 MG TAB 1 TAB PO DAILY CHOLESTEROL (Reported ) Famotidine 20 MG TAB 1 TAB PO DAILY GI (Reported) Furosemide (Lasix) 40 MG TAB 1 TAB PO BID htn HYDRALAZINE HCL (Hydralazine HCl) 10 MG TAB 10 MG PO TID HTN Insulin Aspart, Recombinant (Novolog) 100 U/ML DIANN 40 U SC QPM DIABETES ( Reported) Insulin Aspart, Recombinant (Novolog) 100 U/ML DIANN 35 U SC BID dm (Reported) Insulin-Lantus (Lantus) 100 UNIT/ML VIAL 45 UNITS SC BID DM (Reported) Meclizine HCl 25 MG TABLET 1 TAB PO PRN VERTIGO (Reported) Tramadol HCl (Ultram) 50 MG TABLET 1 TAB PO PRN PAIN (Reported) Valsartan 320 MG TAB 1 TAB PO DAILY HEART (Reported) Review of Systems Review of Systems: A 14 point system review was obtained and was noncontributory, other than as above. 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 Home Services at Home: Home Health Aide, Oxygen Smoking Status: Former Smoker Exam & Diagnostic Data Vital Signs and I&O Vital Signs Date Time Temp Pulse Resp B/P Pulse O2 O2 Flow FiO2 Ox Delivery Rate 09/10 1004 170/88 09/10 1004 170/88 09/10 0949 92 Nasal 45% Cannula 09/10 0945 Nasal 45% Cannula 09/10 0818 98.3 96 15 170/88 94 Nasal Cannula 09/10 0533 90 Nasal 45% Cannula 09/10 0132 85 140/80 09/10 0026 91 Nasal 45% Cannula 09/10 0000 Nasal 45% Cannula 09/09 2240 91 Nasal 45% Cannula 09/099 98.2 52 20 142/82 92 09/09 2131 Nasal Cannula 09/09 2041 97.8 83 20 160/90 96 Aerosol Mask 09/09 1856 95 Nasal 45% Cannula 09/09 1832 80 158/90 96 Aerosol Mask 09/09 1622 138/88 09/09 1610 93 Nasal 45% Cannula 09/09 1503 56 94 09/09 1403 90 Nasal 5.0L Cannula 09/09 1335 79 22 144/91 90 Nasal 4.0L Cannula Intake & Output 09/10 1600 09/10 0800 09/10 0000 09/09 1600 09/09 0800 09/09 0000 Intake Total 240 0 Output Total 1200 1 Balance -1200 239 0 Intake, Oral 240 0 Output, Other 1 Output, Urine 1200 Patient 335 lb 338 lb 330 lb Weight Physical Exam: Morbidly obese, elderly female in mild respiratory distress with oxygen in place. Vital signs: See above. HEENT: Normocephalic, atraumatic, EOMI, moist mucous membranes. Neck: No JVD, no bruits. Lungs: Decreased breath sounds bilaterally. Heart: S1, S2 (both distant) with a soft (grade 1/6) systolic murmur. PMI not well felt. No gallop or rub appreciated. Abdomen: Soft, nontender, positive bowel sounds. Extremities: 1+ edema right and 2-3+ edema left lower extremities. Labs/Chris Results: Laboratory Tests 09/10 09/10 09/10 0535 0500 0150 Chemistry Sodium (137 - 145 mmol/L) 141 Potassium (3.5 - 5.1 mmol/L) 4.4 Chloride (98 - 107 mmol/L) 97 L Carbon Dioxide (22 - 30 mmol/L) 34 H Anion Gap (5 - 16) 10 BUN (7 - 17 mg/dL) 25 H Creatinine (0.5 - 1.0 mg/dL) 1.3 H Estimated GFR (>60 ml/min) 40 L BUN/Creatinine Ratio (7 - 25 %) 19.2 Troponin I (< 0.11 ng/ml) 0.13 *H Cancelled 0.13 *H Hematology CBC w Diff NO MAN DIFF REQ WBC (4.8 - 10.8 /CUMM) 8.2 RBC (4.20 - 5.40 /CUMM) 4.60 Hgb (12.0 - 16.0 G/DL) 14.6 Hct (37 - 47 %) 43.9 MCV (81.0 - 99.0 FL) 95.5 MCH (27.0 - 31.0 PG) 31.7 H RDW (11.5 - 14.5 %) 14.8 H Plt Count (130 - 400 /CUMM) 227 MPV (7.4 - 10.4 FL) 8.1 Gran % (42.2 - 75.2 %) 91.8 H Lymphocytes % (20.5 - 51.1 %) 6.9 L Monocytes % (1.7 - 9.3 %) 0.8 L Eosinophils % (0 - 5 %) 0.3 Basophils % (0.0 - 2.0 %) 0.2 Absolute Granulocytes (1.4 - 6.5 /CUMM) 7.5 H Absolute Lymphocytes (1.2 - 3.4 /CUMM) 0.6 L Absolute Monocytes (0.10 - 0.60 /CUMM) 0.1 L Absolute Eosinophils (0.0 - 0.7 /CUMM) 0 Absolute Basophils (0.0 - 0.2 /CUMM) 0 PUBS MCHC (33.0 - 37.0 G/DL) 33.2 09/10 09/09 09/09 0150 1438 1420 Blood Gas pH (7.35 - 7.45 PH) 7.32 L pCO2 (35 - 45 TORR) 61 *H pO2 (80 - 100 TORR) 59 L HCO3 (21 - 28 MEQ/L) 32 H ABG O2 Sat (Measured) (>96.0 %) 89.0 L Carboxyhemoglobin (1.5 - 5.0 %) 1.0 L O2 Concentration % 6L O2 Delivery Method NC Chemistry Sodium (137 - 145 mmol/L) 141 Potassium (3.5 - 5.1 mmol/L) 3.9 Chloride (98 - 107 mmol/L) 98 Carbon Dioxide (22 - 30 mmol/L) 35 H Anion Gap (5 - 16) 7 BUN (7 - 17 mg/dL) 23 H Creatinine (0.5 - 1.0 mg/dL) 1.2 H Estimated GFR (>60 ml/min) 44 L BUN/Creatinine Ratio (7 - 25 %) 19.2 Glucose (65 - 99 mg/dL) 65 Lactic Acid (0.7 - 2.1 mmol/L) 1.0 1.1 Calcium (8.4 - 10.2 mg/dL) 8.6 Magnesium (1.6 - 2.3 mg/dL) 2.0 Total Bilirubin (0.2 - 1.3 mg/dL) 0.5 AST (14 - 36 U/L) 24 ALT (9 - 52 U/L) 23 Alkaline Phosphatase (<127 U/L) 78 Troponin I (< 0.11 ng/ml) 0.09 Xle-P-Ijqqzulguxh Pept (<125 pg/mL) 2470 H Total Protein (6.3 - 8.2 g/dL) 6.2 L Albumin (3.5 - 5.0 g/dL) 3.0 L Globulin (1.9 - 4.2 gm/dL) 3.2 Albumin/Globulin Ratio (1.1 - 2.2 %) 0.9 L TSH (0.270 - 4.200 uIU/mL) 1.130 Free T4 (0.78 - 2.44 ng/dL) 1.88 Coagulation D-Dimer (70 - 232 ng/ml) 815 H Hematology CBC w Diff NO MAN DIFF REQ WBC (4.8 - 10.8 /CUMM) 7.8 RBC (4.20 - 5.40 /CUMM) 4.40 Hgb (12.0 - 16.0 G/DL) 14.0 Hct (37 - 47 %) 42.0 MCV (81.0 - 99.0 FL) 95.5 MCH (27.0 - 31.0 PG) 31.9 H RDW (11.5 - 14.5 %) 14.7 H Plt Count (130 - 400 /CUMM) 220 MPV (7.4 - 10.4 FL) 7.3 L Gran % (42.2 - 75.2 %) 80.7 H Lymphocytes % (20.5 - 51.1 %) 8.7 L Monocytes % (1.7 - 9.3 %) 9.0 Eosinophils % (0 - 5 %) 1.0 Basophils % (0.0 - 2.0 %) 0.6 Absolute Granulocytes (1.4 - 6.5 /CUMM) 6.3 Absolute Lymphocytes (1.2 - 3.4 /CUMM) 0.7 L Absolute Monocytes (0.10 - 0.60 /CUMM) 0.7 H Absolute Eosinophils (0.0 - 0.7 /CUMM) 0.1 Absolute Basophils (0.0 - 0.2 /CUMM) 0 PUBS MCHC (33.0 - 37.0 G/DL) 33.3 Miscellaneous Phlebotomy Draw Site RIGHT RADIAL Diagnostic Data EKG Results Procedures 09/09/2016) sinus rhythm, PVCs, second degree AV block (Mobitz type I ), consider ALEXANDR, consider LPFB/ and RBBB. CXR Results (09/09/2016) Significantly limited exam secondary to patient body habitus and significant pulmonary hypoinflation. Bibasilar airspace opacities are indeterminate and could reflect atelectasis given low lung volumes although superimposed infection or pulmonary edema cannot be excluded in the appropriate clinical setting. Other Results Bilateral lower extremity ultrasound (09/09/2016) Normal triplex scan without evidence of deep venous thrombosis involving the bilateral lower extremities. Examination is limited, as above. Assessment/Plan Assessment/Plan Elderly female with a history of morbid obesity, former heavy tobacco use, COPD oxygen dependent, hypertension, dyslipidemia, diabetes mellitus, chronic kidney disease, ventricular ectopy, intermittent second degree atrioventricular block (Mobitz type I), left ventricular hypertrophy, systolic/ diastolic dysfunction, and previous biventricular heart failure who presented with several week complaint of progressive shortness of breath, weight gain, intermittent cough productive of "brownish" sputum, orthopnea, and paroxysmal nocturnal dyspnea. Her presentation is consistent with hypercarbic respiratory failure likely on the basis of the obesity hypoventilation syndrome, as well as, a probable component of COPD, heart failure, etc. Suspect that her troponin I elevation is not on the basis of an acute coronary syndrome, but rather a result of demand ischemia secondary to acute illness, left ventricular hypertrophy, component of heart failure, etc. Recommendations: * Telemetry admission, follow-up troponins, follow-up electrocardiograms. * IV furosemide 40 mg twice daily and reassess the need for further IV diuresis in the morning. * Follow-up renal function, potassium, magnesium, etc. * Repeat CXR in a.m. following diuresis. * Echocardiogram to reassess left ventricular systolic/diastolic function, right ventricular function, pulmonary pressures, etc. * Consider CT angiogram. * Hold angiotensin receptor timi for the short-term. * DVT prophylaxis. Further recommendations will follow, Thank you. * Consider CT angiogram. Consult Acknowledgment - Thank you for your consult request.
[2016-09-10 16:15] VITALS: BP 149/85
--- NOTE | 2016-09-10 21:35 | RADIOLOGY REPORT ---
EXAMINATION: XR PORTABLE CHEST CLINICAL INFORMATION: Shortness of breath. Lower extremity swelling. COMPARISON: Portable chest x-ray 09/09/2016. TECHNIQUE: Portable view of the chest was obtained. FINDINGS: Allowing for differences in technique, patient positioning and aeration of the lungs, single AP view of the chest demonstrates pulmonary hypoinflation. Redemonstrated are bibasilar airspace opacities, grossly unchanged relative to the prior examination. Cardiomediastinal contours are prominent. Atherosclerotic calcifications are present within the aortic knob. No large pleural effusions or pneumothoraces. IMPRESSION: Stable appearance of the chest, when accounting for differences in technique. Patchy bibasilar airspace opacities are nonspecific and could reflect atelectasis given low lung volumes versus infection or edema. There is stable prominence of the cardiac silhouette.
[2016-09-11] VITALS: BP 148/80
[2016-09-11 08:28] VITALS: BP 160/70
--- NOTE | 2016-09-11 09:26 | PN- Housestaff ---
See Addendum FIONA SALINAS MD 09/11/16 0914: Subjective Follow-up For: Congestive heart failure Hypercarbic respiratory failure Complaints: persistent shortness of breath Tele-Events Since Last Visit: Patient remains in second-degree Wenckebach block with RBBB with multiple PVCs heart rate around 60s Subjective: Patient still remains significantly short of breath requiring high flow oxygen. She denies any chest pain but noted having significant orthopnea unable to lie flat in the bed requiring to use a recliner to sleep. She was not able to sleep for a long stretch due to her persistent orthopnea.. Still have significant bilateral lower extremity edema. She feels her appetite came back. She denies any chest pain, nausea, vomiting, abdominal pain or urinary symptoms. Review of Systems Constitutional: Reports: see HPI. Objective Last 24 Hrs of Vital Signs/I&O Vital Signs Date Time Temp Pulse Resp B/P Pulse O2 O2 Flow FiO2 Ox Delivery Rate 09/11 0828 78 24 160/70 96 Nasal Cannula 09/11 0800 90 Nasal 45% Cannula 09/11 0349 91 Nasal 45% Cannula 09/11 0000 98.9 82 28 148/80 90 Nasal 45% Cannula 09/11 0000 90 Nasal 45% Cannula 09/10 2337 91 Nasal 55% Cannula 09/10 2253 82 142/80 09/10 1914 95 Nasal 45% Cannula 09/10 1637 86 149/85 09/10 1615 99.1 86 22 149/85 94 T Piece 45% 09/10 1600 94 Nasal 45% Cannula 09/10 1004 170/88 09/10 1004 170/88 09/10 0949 92 Nasal 45% Cannula 09/10 0945 Nasal 45% Cannula Intake & Output 09/11 1600 09/11 0800 09/11 0000 Intake Total 240 400 Output Total 400 700 Balance -160 -300 Intake, Oral 240 400 Output, Urine 400 700 Physical Exam General Appearance: Alert, Oriented X3, Cooperative, Moderate Distress Skin: No Rashes HEENT: Atraumatic, PERRLA, EOMI, Mucous Membr. moist/pink Neck: Supple Cardiovascular: Regular Rate, Normal S1, Normal S2, No Murmurs Lungs: bibasilar crackles Abdomen: Normal Bowel Sounds, Soft, No Tenderness Neurological: Normal Speech, Normal Tone, Sensation Intact Extremities: significant 3+ pitting bilateral lower extremity edema up to knee Vascular: Normal Pulses, Pulses Symmetrical Current Medications: Current Medications Sig/Thanh Start time Last Medication Dose Route Stop Time Status Admin Acetaminophen 650 MG Q6P PRN 09/09 2215 AC PO Albuterol Sulfate 3 ML Q4P PRN 09/10 1000 AC INH Aspirin 81 MG DAILY 09/10 1000 AC 09/10 PO 0958 Atorvastatin Calcium 80 MG 1700 09/10 1700 AC 09/10 PO 1637 Famotidine 20 MG DAILY 09/10 1000 AC 09/10 PO 0958 Furosemide 40 MG BID 09/09 2230 AC 09/10 IV 2012 Heparin Sodium 5,000 UNIT Q8 09/10 0600 AC 09/11 (Porcine) SC 0652 Hydralazine HCl 25 MG TID 09/10 1600 AC 09/10 PO 2253 Hydralazine HCl 10 MG TID 09/09 2245 DC 09/10 PO 1004 Insulin Aspart 0 TIDAC/HS 09/10 0800 AC 09/11 SC 0809 Insulin Detemir 45 UNITS 0600,1800 09/11 1800 DC SC Insulin Detemir 45 UNITS BID 09/11 1000 AC SC Insulin Detemir 15 UNITS ONCE ONE 09/11 0830 DC SC 09/11 0831 Insulin Detemir 30 UNITS BID 09/10 1156 DC 09/11 SC 0814 Losartan Potassium 100 MG DAILY 09/10 1000 DC 09/10 PO 1004 Tramadol HCl 50 MG ONCE ONE 09/10 2030 DC 09/10 PO 09/10 2031 2033 Tramadol HCl 50 MG Q12 09/09 2359 AC 09/10 PO 0958 Last 24 Hrs of Lab/Chris Results Last 24 Hrs of Labs/Mics: Laboratory Tests 09/11/16 0524: Anion Gap 8, Estimated GFR 34 L, BUN/Creatinine Ratio 26.7 H, Magnesium 2.0 09/10/16 1655: Troponin I 0.10 Assessment/Plan Assessment: 1. Shortness of breath/hypercarbic respiratory failure likely multifactorial including CHF exacerbation, component of COPD, obesity hypoventilation syndrome, undiagnosed sleep apnea - Strict MARCELO's noted 1.3 L negative fluid balance Continue IV Lasix 40 twice a day Repeat chest x-ray revealed persistent airspace disease Cardiology consult appreciated Follow-up pulmonary evaluation Daily weight TRC nebs Keep K > 4 and Mg > [address] angiogram to rule out pulmonary embolism, if she remains persistently hypoxic we'll try to get CTA 2. Hypertension Held home dose losartan due to history of CKD Increase hydralazine dose to 25 mg 3 times a day 3. CKD stage III -Noted worsening kidney function likely due to aggressive IV diuresis Monitor renal function on IV diuretic regimen Held losartan 4. Chronic back pain Continue tramadol and Tylenol as needed for pain 5. Type 2 diabetes Continue Accu-Cheks, noted blood sugars in 300s Increase basal insulin Levemir to 45 units twice a day (home dose) NovoLog sliding scale 6. DVT prophylaxis Subcutaneous heparin Problem List: 1. Hypercapnic respiratory failure 2. CHF (congestive heart failure) 3. Hypoxia 4. Diabetes mellitus type 2 Pain Ratin Pain Location: Back Pain Goal: Pain 4 or less Pain Plan: Tylenol and tramadol Tomorrow's Labs & Rationales: BEP and magnesium DVT/Prophylaxis: pharmacological GERSON GARCÍA,ELEONORA 09/11/16 1351: Attending MD Review Statement Attending Statement Attending MD Statement: examined this patient, discuss w/resident/PA/REGISTERED LAND SURVEYOR, agreed w/resident/PA/REGISTERED LAND SURVEYOR, reviewed EMR data (avail), discussed with nursing, discussed with case mgmt, reviewed images, amended to note Attending Assessment/Plan: Patient seen and examined, feels slightky better today. She has diuresed some. Her lower externally is remain significantly swollen. She was still requiring high flow oxygen up until this morning then she was switched to 5 L. Vital Signs Date Time Temp Pulse Resp B/P Pulse O2 O2 Flow FiO2 Ox Delivery Rate 09/11 1104 97 Nasal 5.0L Cannula 09/11 1013 84 146/80 09/11 0828 78 24 160/70 96 Nasal Cannula 09/11 0800 90 Nasal 45% Cannula 09/11 0349 91 Nasal 45% Cannula 09/11 0000 98.9 82 28 148/80 90 Nasal 45% Cannula 09/11 0000 90 Nasal 45% Cannula 09/10 2337 91 Nasal 55% Cannula 09/10 2253 82 142/80 09/10 1914 95 Nasal 45% Cannula 09/10 1637 86 149/85 09/10 1615 99.1 86 22 149/85 94 T Piece 45% 09/10 1600 94 Nasal 45% Cannula on exam; aox3, nad. cv; s1, s2, rrr. resp; clear but decreases bs overall. abd; soft, nt, bs+ ext: 3+ edema b/l Laboratory Tests 09/11 09/10 0524 1655 Chemistry Sodium (137 - 145 mmol/L) 136 L Potassium (3.5 - 5.1 mmol/L) 4.5 Chloride (98 - 107 mmol/L) 95 L Carbon Dioxide (22 - 30 mmol/L) 33 H Anion Gap (5 - 16) 8 BUN (7 - 17 mg/dL) 40 H Creatinine (0.5 - 1.0 mg/dL) 1.5 H Estimated GFR (>60 ml/min) 34 L BUN/Creatinine Ratio (7 - 25 %) 26.7 H Magnesium (1.6 - 2.3 mg/dL) 2.0 Troponin I (< 0.11 ng/ml) 0.10 A/P: 76 y/o F with pmh sig for chronic resp failure, Ch diastolic chf, type 2 diabetes, peripheral neuropathy, GERD, hypertension, chronic kidney disease stage III, hyperlipidemia, chronic kidney disease, admitted with acute on chronic diastolic CHF exacerbation. She also has high troponin likely secondary to demand ischemia. Patient stays on IV Lasix. She has diuresed some but now her creatinine is rising. Her oxygen was switched from high flow to 5 L. Appreciate pulmonology and cardiology input. Patient refused chest CTA. Lower extremity Doppler ultrasound negative. We'll continue diuresed with IV Lasix and monitor creatinine. Patient might qualify for BiPAP pending ABGs tomorrow. Echocardiogram pending. Continue other current medications. Levemir dose increased as blood sugars were running high. DVT px: Heparin subcutaneous.
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
[2016-09-11 16:03] VITALS: BP 130/70
--- NOTE | 2016-09-11 20:15 | PN- Cardiology ---
Subjective Subjective: Breathing has improved following diuresis of over 2 L, but she remains short of breath. Objective Vital Signs and I&Os Vital Signs Date Time Temp Pulse Resp B/P Pulse O2 O2 Flow FiO2 Ox Delivery Rate 09/11 1639 94 130/70 09/11 1603 98.1 94 20 130/70 94 09/11 1600 95 Nasal 5.0L Cannula 09/11 1442 Nasal 5.0L Cannula 09/11 1431 Nasal 5.0L Cannula 09/11 1104 97 Nasal 5.0L Cannula 09/11 1013 84 146/80 09/11 0828 78 24 160/70 96 Nasal Cannula 09/11 0800 90 Nasal 45% Cannula 09/11 0349 91 Nasal 45% Cannula 09/11 0000 98.9 82 28 148/80 90 Nasal 45% Cannula 09/11 0000 90 Nasal 45% Cannula 09/10 2337 91 Nasal 55% Cannula 09/10 2253 82 142/80 Intake & Output 09/11 1600 09/11 0800 09/11 0000 09/10 1600 09/10 0800 09/10 0000 Intake Total 300 240 400 720 240 Output Total 950 400 549 524 1524 1 Balance -650 -160 -300 220 -1200 239 Intake, Oral 300 240 400 720 240 Number 0 Bowel Movements Output, Other 1 Output, Urine 950 [id number] Patient 335 lb 338 lb Weight Physical Exam: Morbidly obese, elderly female in mild respiratory distress with oxygen in place. Vital signs: See above. HEENT: Normocephalic, atraumatic, EOMI, moist mucous membranes. Neck: No JVD, no bruits. Lungs: Decreased breath sounds bilaterally. Heart: S1, S2 (both distant) with a soft (grade 1/6) systolic murmur. PMI not well felt. No gallop or rub appreciated. Abdomen: Soft, nontender, positive bowel sounds. Extremities: 1+ edema right and 2-3+ edema left lower extremities. Current Medications: Current Medications Sig/Thanh Start time Last Medication Dose Route Stop Time Status Admin Acetaminophen 650 MG Q6P PRN 09/09 2215 AC PO Albuterol Sulfate 3 ML Q4P PRN 09/10 1000 AC INH Aspirin 81 MG DAILY 09/10 1000 AC 09/11 PO 1010 Atorvastatin Calcium 80 MG 1700 09/10 1700 AC 09/11 PO 1639 Famotidine 20 MG DAILY 09/10 1000 AC 09/11 PO 1012 Furosemide 40 MG BID 09/09 2230 AC 09/11 IV 1651 Heparin Sodium 5,000 UNIT Q8 09/10 0600 AC 09/11 (Porcine) SC 0652 Hydralazine HCl 25 MG TID 09/10 1600 AC 09/11 PO 1639 Insulin Aspart 0 TIDAC/HS 09/10 0800 AC 09/11 SC 1718 Insulin Detemir 45 UNITS 0600,2200 09/11 2200 AC SC Insulin Detemir 45 UNITS 0600,1800 09/11 1800 DC SC Insulin Detemir 45 UNITS BID 09/11 1000 DC SC Insulin Detemir 15 UNITS ONCE ONE 09/11 0830 DC 09/11 SC 09/11 0831 1012 Insulin Detemir 30 UNITS BID 09/10 1156 DC 09/11 SC 0814 Tramadol HCl 50 MG ONCE ONE 09/10 2030 DC 09/10 PO 09/10 Tramadol HCl 50 MG Q12 09/09 2359 AC 09/11 PO 1012 Results Last 48 Hrs of Labs/Mics: Laboratory Tests 09/11/16 0524: Anion Gap 8, Estimated GFR 34 L, BUN/Creatinine Ratio 26.7 H, Magnesium 2.0 09/10/16 1655: Troponin I 0.10 09/10/16 0535: Anion Gap 10, Estimated GFR 40 L, BUN/Creatinine Ratio 19.2, Troponin I 0.13 *H , CBC w Diff NO MAN DIFF REQ, RBC 4.60, MCV 95.5, MCH 31.7 H, RDW 14.8 H, MPV 8.1, Gran % 91.8 H, Lymphocytes % 6.9 L, Monocytes % 0.8 L, Eosinophils % 0.3 , Basophils % 0.2, Absolute Granulocytes 7.5 H, Absolute Lymphocytes 0.6 L, Absolute Monocytes 0.1 L, Absolute Eosinophils 0, Absolute Basophils 0, PUBS MCHC 33.2 09/10/16 0500: Troponin I Cancelled 09/10/16 0150: Troponin I 0.13 *H 09/10/16 0150: Lactic Acid 1.0 Recent Imaging Studies: CXR (09/10/2016) Stable appearance of the chest, when accounting for differences in technique. Patchy bibasilar airspace opacities are nonspecific and could reflect atelectasis given low lung volumes versus infection or edema. There is stable prominence of the cardiac silhouette. Assessment/Plan Assessment/Plan Elderly female with a history of morbid obesity, former heavy tobacco use, COPD oxygen dependent, hypertension, dyslipidemia, diabetes mellitus, chronic kidney disease, ventricular ectopy, intermittent second degree atrioventricular block (Mobitz type I), left ventricular hypertrophy, systolic/ diastolic dysfunction, and previous biventricular heart failure who presented with several week complaint of progressive shortness of breath, weight gain, intermittent cough productive of "brownish" sputum, orthopnea, and paroxysmal nocturnal dyspnea. Her presentation is consistent with hypercarbic respiratory failure likely on the basis of a combination of obesity hypoventilation syndrome, COPD, heart failure, etc. Suspect that her troponin I elevation is not on the basis of an acute coronary syndrome, but rather a result of demand ischemia secondary to acute illness, left ventricular hypertrophy, component of heart failure, etc. While she is feeling somewhat improved, it is not clear whether this is mainly result of her being diuresed, or whether her improved pulmonary status with TRC etc. is responsible. Would consider holding this PMs IV diuresis given her elevated BUN/creatinine. Would follow-up a CXR in the a.m. Will follow-up on her echocardiogram. Will likely need outpatient pharmacologic stress testing. Continue on telemetry given her intermittent second-degree heart block, Mobitz type I. Continue telemetry? Yes
[2016-09-11 22:00] VITALS: BP 146/78
--- NOTE | 2016-09-12 09:19 | PN- Housestaff ---
RITA GARCÍA,FIONA 09/12/16 0918: Subjective Follow-up For: Acute hypoxic respiratory failure OHS Diastolic heart failure Complaints: COMPLAINS OF SHORTNESS OF BREATH AND LEG SWELLING BUT FEELS IT'S IMPROVED Tele-Events Since Last Visit: Noted Wenckebach with second-degree AV block with multiple PVCs on monitor Subjective: Patient feels her shortness of breath is gradually improving now requires full liter of supplemental O2 (baseline O2 requirement is 3.5 L at home). She still has significant bilateral lower extremity edema. She continues to experience orthopnea but denies any chest pain, palpitation, dizziness, lightheadedness, nausea, vomiting, abdominal pain. Her last bowel movement was prior to admission. Review of Systems Constitutional: Reports: see HPI. Objective Last 24 Hrs of Vital Signs/I&O Vital Signs Date Time Temp Pulse Resp B/P Pulse O2 O2 Flow FiO2 Ox Delivery Rate 09/12 0000 Nasal 4.0L Cannula 09/11 2200 97.7 83 20 146/78 96 Nasal 4.0L Cannula 09/11 2144 83 146/78 09/11 2103 96 Nasal 5.0L Cannula 09/11 1639 94 130/70 09/11 1603 98.1 94 20 130/70 94 09/11 1600 95 Nasal 5.0L Cannula 09/11 1442 Nasal 5.0L Cannula 09/11 1431 Nasal 5.0L Cannula 09/11 1104 97 Nasal 5.0L Cannula 09/11 1013 84 146/80 Intake & Output 09/12 1600 09/12 0800 09/12 0000 Intake Total 250 440 Output Total 500 650 Balance -250 -210 Intake, IV 10 Intake, Oral 240 440 Number 0 Bowel Movements Output, Urine 500 650 Patient 332 lb Weight Physical Exam General Appearance: Alert, Oriented X3, Cooperative, Mild Distress Skin: BILATERAL LOWER EXTREMITY MILD REDNESS HEENT: Atraumatic, PERRLA, EOMI, Mucous Membr. moist/pink Neck: Supple Cardiovascular: Regular Rate, Normal S1, Normal S2, NOTED SYSTOLIC MURMUR AT RIGHT SECOND INTERCOSTAL SPACE Lungs: NOTED BILATERAL CRACKLES UP TO MID LOBE Abdomen: Normal Bowel Sounds, Soft, No Tenderness Neurological: Normal Speech, Normal Tone, Sensation Intact Extremities: 3+ PITTING BILATERAL LOWER EXTREMITY EDEMA Vascular: Normal Pulses, Pulses Symmetrical Current Medications: Current Medications Sig/Thanh Start time Last Medication Dose Route Stop Time Status Admin Acetaminophen 650 MG Q6P PRN 09/09 2215 AC PO Albuterol Sulfate 3 ML Q4P PRN 09/10 1000 AC 09/11 INH 2102 Aspirin 81 MG DAILY 09/10 1000 AC 09/11 PO 1010 Atorvastatin Calcium 80 MG 1700 09/10 1700 AC 09/11 PO 1639 Famotidine 20 MG DAILY 09/10 1000 AC 09/11 PO 1012 Furosemide 40 MG BID 09/09 2230 DC 09/11 IV 1651 Heparin Sodium 5,000 UNIT Q8 09/10 0600 AC 09/12 (Porcine) SC 0643 Hydralazine HCl 25 MG TID 09/10 1600 AC 09/11 PO 2144 Insulin Aspart 0 TIDAC/HS 09/10 0800 AC 09/11 SC 1718 Insulin Detemir 45 UNITS 0600,2200 09/11 2200 AC 09/12 SC 0643 Insulin Detemir 45 UNITS BID 09/11 1000 DC SC Polyethylene Glycol 17 GM DAILY 09/12 1000 AC PO Senna/Docusate Sodium 1 TAB BID 09/12 1000 AC PO Tramadol HCl 50 MG ONCE ONE 09/12 0215 DC 09/12 PO 09/12 0216 0205 Tramadol HCl 50 MG Q12 09/09 2359 AC 09/11 PO 2143 Last 24 Hrs of Lab/Chris Results Last 24 Hrs of Labs/Mics: Pending Assessment/Plan Assessment: 1. Shortness of breath/hypercarbic respiratory failure likely multifactorial including CHF exacerbation, component of obesity hypoventilation syndrome, undiagnosed sleep apnea - Strict MARCELO's noted 1.2 L negative fluid balance Hold IV Lasix until morning labs returns and according to kidney function will decide to continue Lasix Repeat chest x-ray this morning Cardiology consult appreciated Follow-up pulmonary evaluation Daily weight: noted 6 LB weight loss TRC nebs Keep K > 4 and Mg > 2 2. Hypertension Held home dose losartan due to history of CKD Increase hydralazine dose to 25 mg 3 times a day 3. CKD stage III -Noted worsening kidney function yesterday likely due to aggressive IV diuresis Monitor renal function on IV diuretic regimen Held losartan Awaiting morning renal function test result 4. Chronic back pain Continue tramadol and Tylenol as needed for pain 5. Type 2 diabetes Continue Accu-Cheks, noted blood sugars in the 200s, much better controlled Continue basal insulin Levemir to 45 units twice a day (home dose) NovoLog sliding scale 6. DVT prophylaxis Subcutaneous heparin Problem List: 1. Hypercapnic respiratory failure 2. CHF (congestive heart failure) 3. Diabetes mellitus type 2 Pain Ratin Pain Location: BACK Pain Goal: Pain 4 or less Pain Plan: Tylenol and tramadol as needed Tomorrow's Labs & Rationales: BEP and magnesium GHISLAINE FIELD 09/12/16 1406: Attending MD Review Statement Attending Statement Attending MD Statement: examined this patient, discuss w/resident/PA/STEMMER MACHINE, agreed w/resident/PA/STEMMER MACHINE, reviewed EMR data (avail), discussed with nursing, discussed with case mgmt Attending Assessment/Plan: Patient seen and examined at bedside. 76-year-old female with past medical history of morbid obesity and diastolic heart failure type 2 diabetes and chronic kidney disease who was admitted with the acute on chronic diastolic CHF exacerbation. Patient was also found to have slightly high troponin secondary to demand ischemia which returned to normal with IV diuresis.patient had a rapid Response today while she was getting an x-ray. It was thought to be more from anxiety and patient was given Xanax and some left laser treatment after which she felt better. Her chest x-ray done again shows fluid overload from her heart failure so we will continue with diuresis as per cardiology recommendation. We' ll try to get the echo done today and see what it shows. Discussed with patient at bedside the care plan.
--- NOTE | 2016-09-12 11:21 | RADIOLOGY REPORT ---
EXAMINATION: XR CHEST CLINICAL INFORMATION: Congestive heart failure. COMPARISON: Chest radiograph dated 09/10/2016 TECHNIQUE: PA and lateral views of the chest were obtained. FINDINGS: The trachea is in normal anatomic position. The cardiac silhouette is enlarged. There is pulmonary edema, slightly worse than on the prior study. No definite pneumothorax. No definite consolidation. Small pleural effusions bilaterally. IMPRESSION: This examination is markedly degraded secondary to body habitus and poor inspiration. In particular, the lateral views are not interpretable. There is persistent, moderate cardiomegaly and pulmonary edema.
--- NOTE | 2016-09-12 14:01 | PN- Pulmonary ---
Subjective HPI/Critical Care Issues: pt seen and examined had difficulty sleeping but feeling somewhat better and saturations improved no n/v/d/c no cp prefers to sleep upright Objective Current Medications: Current Medications Sig/Thanh Start time Last Medication Dose Route Stop Time Status Admin Acetaminophen 650 MG Q6P PRN 09/09 2215 AC PO Albuterol Sulfate 3 ML Q4P PRN 09/10 1000 AC 09/12 INH 1114 Alprazolam 0.5 MG ONCE ONE 09/12 1115 DC 09/12 PO 09/12 1116 1134 Aspirin 81 MG DAILY 09/10 1000 AC 09/12 PO 1134 Atorvastatin Calcium 80 MG 1700 09/10 1700 AC 09/11 PO 1639 Famotidine 20 MG DAILY 09/10 1000 AC 09/12 PO 1134 Furosemide 40 MG BID 09/09 2230 DC 09/11 IV 1651 Heparin Sodium 5,000 UNIT Q8 09/10 0600 AC 09/12 (Porcine) SC 0643 Hydralazine HCl 25 MG TID 09/10 1600 AC 09/12 PO 1141 Insulin Aspart 0 TIDAC/HS 09/10 0800 AC 09/12 SC 1200 Insulin Detemir 45 UNITS 0600,2200 09/11 2200 AC 09/12 SC 0643 Polyethylene Glycol 17 GM DAILY 09/12 1000 AC PO Senna/Docusate Sodium 1 TAB BID 09/12 1000 AC PO Tramadol HCl 50 MG ONCE ONE 09/12 0215 DC 09/12 PO 09/12 0216 0205 Tramadol HCl 50 MG Q12 09/09 2359 AC 09/12 PO 1020 Vital Signs & I&O Last 24 Hrs of Vitals and I&O: Vital Signs Date Time Temp Pulse Resp B/P Pulse O2 O2 Flow FiO2 Ox Delivery Rate 09/12 1141 83 130/72 09/12 1114 95 Nasal 4.0L Cannula 09/12 0800 Nasal 4.0L Cannula 09/12 0000 Nasal 4.0L Cannula 09/11 2200 97.7 83 20 146/78 96 Nasal 4.0L Cannula 09/11 2144 83 146/78 09/11 2103 96 Nasal 5.0L Cannula 09/11 1639 94 130/70 09/11 1603 98.1 94 20 130/70 94 09/11 1600 95 Nasal 5.0L Cannula 09/11 1442 Nasal 5.0L Cannula 09/11 1431 Nasal 5.0L Cannula Intake & Output 09/12 1600 09/12 0800 09/12 0000 Intake Total 250 440 Output Total 500 650 Balance -250 -210 Intake, IV 10 Intake, Oral 240 440 Number 1 0 Bowel Movements Output, Urine 500 650 Patient 332 lb Weight Exam Other Physical Findings: gen awake and alert heent ncat, large neck size cvs s1, s2 lungs rare rhonchi abd soft bs+, obesity ext edematous Impression/Plan Impression/Plan Impression/Plan: Impression 76 year old woman with dm, obesity and diastolic chf. Likely underlying pamela/ohs Plan - outpatient sleep study - likely obesity hypoventilation syndrome and likely underlying sleep apnea - repeat abg off o2if possible, if co2 >60 would qualify for bipap - consideration for rehab - Incentive Spirometry - diuresis, ins/outs - trc/nebs - DVT prophylaxis at all times
--- NOTE | 2016-09-12 15:14 | PN- Cardiology ---
Subjective Subjective: Her breathing continues to slowly improve. On monitoring she continues to have intermittent second-degree heart block, Mobitz type I. Was also tachycardic earlier. Objective Vital Signs and I&Os Vital Signs Date Time Temp Pulse Resp B/P Pulse O2 O2 Flow FiO2 Ox Delivery Rate 09/12 1415 Nasal 5.0L Cannula 09/12 1141 83 130/72 09/12 1114 95 Nasal 4.0L Cannula 09/12 0800 Nasal 4.0L Cannula 09/12 0000 Nasal 4.0L Cannula 09/11 2200 97.7 83 20 146/78 96 Nasal 4.0L Cannula 09/11 2144 83 146/78 09/11 2103 96 Nasal 5.0L Cannula 09/11 1639 94 130/70 09/11 1603 98.1 94 20 130/70 94 09/11 1600 95 Nasal 5.0L Cannula Intake & Output 09/12 1600 09/12 0800 09/12 0000 09/11 1600 09/11 0800 09/11 0000 Intake Total 720 250 440 300 240 400 Output Total 500 650 950 400 700 Balance 720 -250 -210 -650 -160 -300 Intake, IV 0 10 Intake, Oral 720 240 440 300 240 400 Number 2 0 0 Bowel Movements Output, Urine 500 650 950 400 700 Patient 332 lb Weight Physical Exam: Morbidly obese, elderly female in mild respiratory distress with oxygen in place. Vital signs: See above. HEENT: Normocephalic, atraumatic, EOMI, moist mucous membranes. Neck: No JVD, no bruits. Lungs: Decreased breath sounds bilaterally. Heart: S1, S2 (both distant) with a soft (grade 1/6) systolic murmur. PMI not well felt. No gallop or rub appreciated. Abdomen: Soft, nontender, positive bowel sounds. Extremities: 1+ edema right and 2-3+ edema left lower extremities. Current Medications: Current Medications Sig/Thanh Start time Last Medication Dose Route Stop Time Status Admin Acetaminophen 650 MG Q6P PRN 09/09 2215 AC PO Albuterol Sulfate 3 ML Q4P PRN 09/10 1000 AC 09/12 INH 1114 Alprazolam 0.5 MG ONCE ONE 09/12 1115 DC 09/12 PO 09/12 1116 1134 Aspirin 81 MG DAILY 09/10 1000 AC 09/12 PO 1134 Atorvastatin Calcium 80 MG 1700 09/10 1700 AC 09/11 PO 1639 Famotidine 20 MG DAILY 09/10 1000 AC 09/12 PO 1134 Furosemide 40 MG BID 09/09 2230 DC 09/11 IV 1651 Heparin Sodium 5,000 UNIT Q8 09/10 0600 AC 09/12 (Porcine) SC 1432 Hydralazine HCl 25 MG TID 09/10 1600 AC 09/12 PO 1141 Insulin Aspart 0 TIDAC/HS 09/10 0800 AC 09/12 SC 1200 Insulin Detemir 45 UNITS 0600,2200 09/11 2200 AC 09/12 SC 0643 Metoprolol Tartrate 6.25 MG BID 09/12 1432 AC PO Polyethylene Glycol 17 GM DAILY 09/12 1000 AC PO Senna/Docusate Sodium 1 TAB BID 09/12 1000 AC PO Tramadol HCl 50 MG ONCE ONE 09/12 0215 DC 09/12 PO 09/12 0216 0205 Tramadol HCl 50 MG Q12 09/09 2359 AC 09/12 PO 1020 Results Last 48 Hrs of Labs/Mics: Laboratory Tests 09/12/16 1447: Sodium Pending, Potassium Pending, Chloride Pending, Carbon Dioxide Pending, Anion Gap Pending, BUN Pending, Creatinine Pending, BUN/Creatinine Ratio Pending , Magnesium Pending 09/11/16 0524: Anion Gap 8, Estimated GFR 34 L, BUN/Creatinine Ratio 26.7 H, Magnesium 2.0 09/10/16 1655: Troponin I 0.10 Recent Imaging Studies: CXR (09/12/2016) This examination is markedly degraded secondary to body habitus and poor inspiration. In particular, the lateral views are not interpretable. There is persistent, moderate cardiomegaly and pulmonary edema. Assessment/Plan Assessment/Plan Elderly female with a history of morbid obesity, former heavy tobacco use, COPD oxygen dependent, hypertension, dyslipidemia, diabetes mellitus, chronic kidney disease, ventricular ectopy, intermittent second degree atrioventricular block (Mobitz type I), left ventricular hypertrophy, systolic/ diastolic dysfunction, and previous biventricular heart failure who presented with several week complaint of progressive shortness of breath, weight gain, intermittent cough productive of "brownish" sputum, orthopnea, and paroxysmal nocturnal dyspnea. Her presentation is consistent with hypercarbic respiratory failure likely on the basis of a combination of obesity hypoventilation syndrome, COPD, heart failure, etc. Suspect that her troponin I elevation is not on the basis of an acute coronary syndrome, but rather a result of demand ischemia secondary to acute illness, left ventricular hypertrophy, component of heart failure, etc. While she is feeling somewhat improved, it is not clear whether this is mainly a result of her being diuresed, or whether her pulmonary status improved with TRC etc. This a.m.'s diuretic was held given her elevated BUN/creatinine. Follow-up BUN/ creatinine is pending. Will follow-up on her echocardiogram when performed. She will likely need an outpatient pharmacologic stress testing. Continue on telemetry given her intermittent second-degree heart block, Mobitz type I. Continue telemetry? Yes
[2016-09-12 16:11] VITALS: BP 150/70
--- NOTE | 2016-09-13 00:12 | Patient Discharge Instructions ---
Discharge Instructions General Discharge Information Watch for these problems: Shortness of breath, weight gain, chest pain, palpitation Special Instructions: - Please follow-up with primary care physician within a week of discharge - Please follow-up with cad specialist Dr. Lawrence within a week of discharge - Please follow-up with repair service dispatcher Dr. Brody within a week of discharge and schedule sleep study. -Please have a BEP including BUN/creatinine done in 2 days after discharge. -Echocardiogram results to be followed as outpatient. -We have been holding home medication of Valsartan given poor renal function. This medication can be restarted after creatinine level improves/stabilizes. -Need an outpatient pharmacologic stress testing. -Please take the medications as instructed. -Please return to the hospital if symptoms worsen/not improved. -Patient needs a nocturnal BiPAP. Diet Recommended Diet: Diabetic Activity Additional ACTIVITY Info: as tolerated Acute Coronary Syndrome Inclusion Criteria At DC or during hospital stay patient has or had the following: ACS DIAGNOSIS No Discharge Core Measures Meds if any: Prescribed or Continued at Discharge Meds if any: NOT Prescribed or Continued at Discharge Congestive Heart Failure Inclusion Criteria At DC or during hospital stay patient has or had the following: CHF DIAGNOSIS No Discharge Core Measures Meds if any: Prescribed or Continued at Discharge Meds if any: NOT Prescribed or Continued at Discharge Cerebrovascular accident Inclusion Criteria At DC or during hospital stay patient has or had the following: CVA/TIA Diagnosis No Discharge Core Measures Meds if any: Prescribed or Continued at Discharge Meds if any: NOT Prescribed or Continued at Discharge Venous thromboembolism Inclusion Criteria VTE Diagnosis No VTE Type NONE VTE Confirmed by (Test) EXT BILATERAL VENOUS DOPP Discharge Core Measures - Per Current guidelines, there needs to be overlap - treatment for the first 5 days of Warfarin therapy. - If discharged on Warfarin prior to 5 days of - overlap therapy, the patient will need to be - assessed for post discharge needs including - *Post discharge parental anticoagulation - *Warfarin and/or parental anticoagulation education - *Follow up date to check INR post discharge At least 5 days overlap therapy as Inpatient No Meds if any: Prescribed or Continued at Discharge Note: Overlap Therapy is Warfarin and Anticoagulant Meds if any: NOT Prescribed or Continued at Discharge
[2016-09-13 00:39] VITALS: BP 140/70
[2016-09-13 08:40] VITALS: BP 158/75
--- NOTE | 2016-09-13 11:49 | PN- Att Addend ---
Attending Addendum Attending Brief Note Patient feels like her breathing is okay but she still very swollen. On exam her blood pressure is 156/75, heart rate is 78, 94% on 4 L and she is afebrile. She had a 4 beat run of nonsustained VT earlier today. Her lungs have decreased breath sounds with scattered crackles, heart is S1-S2 regular with a soft systolic murmur she is morbidly obese and nontender with reddened abdominal folds and 3+ pitting edema with a small blister on her toe. She is a 76-year-old with obesity, likely multifactorial shortness of breath including obesity hypoventilation, diastolic heart failure with diabetes and CK D. She also has O2 dependent COPD. Her Lasix has been on hold because of the worsening renal function and she hasn't gotten any yesterday will have to see what her creatinine is today I think she still got a lot of edema and probably need some more IV Lasix. She uses and will wean her down to her usual dose. And will follow-up.
[2016-09-13 16:46] VITALS: BP 136/76
[2016-09-13 16:47] VITALS: BP 136/76
--- NOTE | 2016-09-13 19:08 | PN- Cardiology ---
Subjective Subjective: Shortness of breath is somewhat better. No chest pain. No palpitations. No diaphoresis. No lightheadedness or dizziness. Objective Vital Signs and I&Os Vital Signs Date Time Temp Pulse Resp B/P Pulse O2 O2 Flow FiO2 Ox Delivery Rate 09/13 1706 73 136/76 09/13 1647 98.8 73 20 136/76 92 Nasal 4.0L Cannula 09/13 1646 98.8 73 20 136/76 92 Nasal 4.0L Cannula 09/13 1152 150/80 09/13 1002 82 156/75 09/13 0845 94 Nasal 4.0L Cannula 09/13 0840 98.7 82 20 158/75 92 Nasal 3.5L Cannula 09/13 0800 92 Nasal 4.0L Cannula 09/13 0039 98.3 63 20 140/70 94 Nasal 3.0L Cannula 09/13 0000 Nasal 4.0L Cannula 09/12 2231 76 120/56 09/12 2231 78 120/56 09/12 2051 94 Nasal 4.0L Cannula Intake & Output 09/13 1600 09/13 0800 09/13 0000 09/12 1600 09/12 0800 09/12 0000 Intake Total 450 50 470 720 250 440 Output Total 600 350 400 500 650 Balance -150 -300 70 720 -250 -210 Intake, IV 0 20 0 10 Intake, Oral 450 50 450 720 240 440 Number 1 0 2 0 Bowel Movements Output, Urine 600 350 400 500 650 Patient 356 lb 356 lb 332 lb Weight Physical Exam: Morbidly obese, elderly female in mild respiratory distress with oxygen in place. Vital signs: See above. HEENT: Normocephalic, atraumatic, EOMI, moist mucous membranes. Neck: No JVD, no bruits. Lungs: Decreased breath sounds bilaterally. Heart: S1, S2 (both distant) with a soft (grade 1/6) systolic murmur. PMI not well felt. No gallop or rub appreciated. Abdomen: Soft, nontender, positive bowel sounds. Extremities: 1+ edema right and 2-3+ edema left lower extremities. Current Medications: Current Medications Sig/Thanh Start time Last Medication Dose Route Stop Time Status Admin Acetaminophen 650 MG Q6P PRN 09/09 2215 AC PO Albuterol Sulfate 3 ML Q4P PRN 09/10 1000 DC 09/12 INH 1114 Aspirin 81 MG DAILY 09/10 1000 AC 09/13 PO 1002 Atorvastatin Calcium 80 MG 1700 09/10 1700 AC 09/13 PO 1705 Famotidine 20 MG DAILY 09/10 1000 AC 09/13 PO 1002 Furosemide 20 MG 7:30 AM, & 4:30 PM 09/13 1630 AC 09/13 IV 1706 Heparin Sodium 5,000 UNIT Q8 09/10 0600 AC 09/13 (Porcine) SC 1430 Hydralazine HCl 25 MG TID 09/10 1600 AC 09/13 PO 1706 Insulin Aspart 0 TIDAC/HS 09/10 0800 AC 09/13 SC 1706 Insulin Detemir 45 UNITS 0600,2200 09/11 2200 AC 09/13 SC 0637 Metoprolol Tartrate 6.25 MG BID 09/12 1432 AC 09/13 PO 1002 Nystatin 1 VINCE TID 09/13 0342 AC 09/13 TOP 1706 Patient Medication 1 UNIT ONE NR 09/13 1530 DC Teaching ED 09/13 1600 Polyethylene Glycol 17 GM DAILY 09/12 1000 AC PO Senna/Docusate Sodium 1 TAB BID 09/12 1000 AC 09/12 PO 2228 Tramadol HCl 50 MG Q4 PRN 09/12 1717 AC 09/13 PO 1431 Results Last 48 Hrs of Labs/Mics: Laboratory Tests 09/13/16 1234: Anion Gap 9, Estimated GFR 31 L, BUN/Creatinine Ratio 30.0 H 09/12/16 1447: Anion Gap 6, Estimated GFR 29 L, BUN/Creatinine Ratio 28.2 H, Magnesium 2.0 Assessment/Plan Assessment/Plan Assessment: 1. Acute HFpEF exacerbation 2. Second-degree AV block, Mobitz type I 3. Chronic kidney disease 4. Mild troponin elevation secondary to demand ischemia Recommendations: * Would give Lasix 40 mg IV daily * Check basic metabolic profile daily * Monitor input and output * Continue other cardiac medications Continue telemetry? Yes
[2016-09-14 00:28] VITALS: BP 148/58
[2016-09-14 08:43] VITALS: BP 158/62
--- NOTE | 2016-09-14 09:50 | PN- Att Addend ---
Attending Addendum Attending Brief Note Patient is now on Lasix 20 IV twice a day. Her edema appears pretty much the same. She is currently on Lasix 20 IV twice a day and we keeping a close watch on the BUN and creatinine. On exam her blood pressure is 158/60, pulse of 76, afebrile breathing at 18-20. Her lungs have decreased breath sounds bilaterally, she has 2-3+ pedal edema and she is morbidly obese. Heart is S1-S2 distant and she's awake and alert. BUN is 29 and creatinine is 1.6. She is a 76-year-old with a history of chronic respiratory failure on oxygen chronically for questionable COPD and obesity hypoventilation, diabetes and CKD and she is here with very severe leg edema questionable diastolic heart failure. We have her on IV Lasix and we are watching the BUN and creatinine closely. And the plan is probable discharge to [facility] in a.m.
--- NOTE | 2016-09-14 11:00 | Discharge Summary ---
Visit Information Visit Dates Admission Date: 09/09/16 Discharge Date: 09/15/16 Hospital Course Course Attending Physician: GERSON GARCÍA,ELEONORA Primary Care Physician: ALLEY GARCÍA,TATI APARICIO Consulting Request: 1 Consulting Specialty: Cardiology Consulting Physician: Dr. Lawrence Reason for Consult: diastolic heart failure Consulting Request: 2 Consulting Specialty: Pulmonary Disease Consulting Physician: Dr. Brody Reason for Consult: obesity hypoventilation syndrome, sleep apnea Hospital Course: This is 76 yo morbidly obese F with h/o T2DM, HTN, chronic diastolic CHF on baseline 3.5 LO2 via NC, CKD stage 3B, second degree heart block type 1, was admitted with chief complaint of worsening dyspnea on exertion and rest, significant bilateral lower extremity edema extending up to lower abdomen of 4 weeks duration. Patient also claimed about 28 pounds weight gain in past 1 year with significant orthopnea and inability to lie flat. She admitted to miss a few doses of lasix, as she she was unable to remember all her medications. She Denied fever, chills, chest pain, lightheadedness or palpitations on admission. She was last admitted in Sep 2015 for CHF exacerbation, was to follow up with Pulm for sleep study which has not been done. PFT (December 2015) showed moderately severe restrictive ventilatory defect with exercise induced desaturation and resting hypoxemia, increased resting bronchomotor tone. Vitals on admission were: afebrile, HR 80's, BP 140/80, sats 90% on 5L ? 92% on high flow nasal cannula (45%). On examination: General Appearance: Obese ,Alert, in mild distress. Skin: Grossly normal HEENT: PEERLA Neck: Supple, No JVD Cardiovascular: Regular Rate, Normal S1, Normal S2, No Murmurs Lungs: Decreased expirations bilaterally without any wheeze. Abdomen: Normal Bowel Sounds, Soft, No Tenderness Neurological: Normal Speech, Strength at 5/5 X4 Ext, Cranial Nerves 3-12 NL, Reflexes 2+ Extremities: 3+ pitting edema in the left lower extremity 3+ pitting edema in the right LE > Lt. LE Vascular: Normal Pulses. Labs were significant for: D-dimer 815, bicarb 35, BUN 23, creat 1.2 (baseline), trop neg, proBNP 2470, AB.32/61/59/32 (respiratory acidosis compensated with metabolic alkalosis). CXR: bibasilar opacities ?atelectasis vs. pulmonary edema. LE doppler neg for DVT. EKG: SR, RBBB (old), no acute changes. Echo (2015) EF > 60%, LVH. Patient admitted to telemetry floor and following problems were addressed during course of hospital stay. 1. Acute hypercarbic respiratory failure multifactorial including diastolic heart failure, pulmonary hypertension secondary to obesity hypoventilation syndrome, undiagnosed sleep apnea. Patient noted hypoxic on admission with ABG suggestive of hypercarbia with pH of 7.3 and PCO2 of 61. She was started on high flow oxygen and aggressive IV diuresis. Patient diuresed well but noted having worsening kidney function and required to held with diuretic in between. Attempted to do CTA to rule out pulmonary embolism but patient was unable to lie flat on table and it was not pursued further as pulmonary embolism was low on differential. Cardiology consulted and diuretic dose adjusted, echocardiogram was done patient started on low-dose beta timi improved diastolic filling for diastolic heart failure. Result of ECHO should be followed as outpatient with Dr. Lawrence. Pulmonary also consulted and recommended outpatient sleep study. Patient started on nocturnal BiPAP. Patient's dyspnea gradually improved and her diuretic changed to oral. Patient needs close outpatient follow-up with cardiology and pulmonary and she might benefit from CHF clinic. 2. Elevated troponin likely secondary to demand ischemia Patient noted having mildly elevated troponin which peaked to 0.13 without any significant ischemic EKG changes or chest pain. Cardiology consulted, echocardiogram done, patient did not require IV heparin drip as it was thought to be secondary to demand ischemia. Patient needs outpatient pharmacologic stress test as per cardiology recommendation. 3. Second-degree AV block Mobitz type I Patient noted in second-degree AV block with type I Mobitz without no significant pauses. Patient monitored on telemetry during course of hospital stay. 4. Acute kidney injury with Stage III CKD Patient noted to have elevated BUN and creatinine up to 48/1.7 (baseline 32/1.3) thought to be secondary to aggressive diuresis. Kidney function monitored closely and diuretic dose adjusted accordingly. All nephrotoxic agent avoided. Patient's home dose Valsartan held which can be resumed once kidney function improves. Patient asked to get BEP checked within 2 days of discharge. 5. Hypertension During course of hospital stay due to worsening kidney function patient's home dose losartan held. Her hydralazine dose increased from 10 mg 3 times a day to 25 mg 3 times a day. And low-dose beta timi metoprolol 6.25 mg twice a day added to the regimen. Heart blood pressure remained well controlled. 6. Type 2 diabetes Patient maintain on home dose Levemir 45 units twice a day and NovoLog sliding scale. She received diabetic diet and NovoLog sliding scale for meal coverage. 7. Hyperlipidemia Patient continued on home dose Lipitor 80 mg daily 8. Chronic back pain Patient received tramadol and Tylenol as needed for her pain management 9. DVT prophylaxis She received subcutaneous heparin Update on 09/15/2016: Results of echocardiogram to be followed as outpatient, BEP including BUN/creatinine should be done in 2 days after discharge. Patient needs nocturnal BiPAP. Home medication of Valsartan has been held inpatient given poor renal function. This medication can be restarted after creatinine level improves/stabilizes. Allergies: Coded Allergies: Fish Containing Products (Intermediate, RASH, VOMITING 09/09/16) SEAFOOD Penicillins (Mild, RASH 09/09/16) adhesive tape (Mild, RASH AND BURNING 09/09/16) alcohol (BURNING SKIN 09/09/16) shellfish derived (RASH, VOMITING 09/09/16) metformin (Intermediate, DIARRHEA, GI UPSET 09/09/16) Pertinent Lab Results: Laboratory Tests 09/14/16 0650: Anion Gap 10, Estimated GFR 31 L, BUN/Creatinine Ratio 30.6 H, Magnesium 2.3 09/13/16 1234: Anion Gap 9, Estimated GFR 31 L, BUN/Creatinine Ratio 30.0 H 09/12/16 1447: Anion Gap 6, Estimated GFR 29 L, BUN/Creatinine Ratio 28.2 H, Magnesium 2.0 Disposition Summary Disposition Principal Diagnosis: 1. Acute hypercarbic respiratory failure 2. Diastolic heart failure 3. Obesity hypoventilation syndrome 4. Acute kidney injury Additional Diagnosis: 1. Stage III CKD 2. Hypertension 3. Second-degree AV block Mobitz type I 4. Type 2 diabetes Discharge Disposition: SNF Discharge Instructions General Discharge Information Code Status: Full Code Patient's Diet: Diabetic diet Patient's Activity: As tolerated physical therapy Follow-Up Instructions/Appts: - Please follow-up with primary care physician within a week of discharge - Please follow-up with feeder catcher tobacco Dr. Lawrence within a week of discharge - Please follow-up with staffing executive Dr. Brody within a week of discharge and schedule sleep study. -Please have a BEP including BUN/creatinine done in 2 days after discharge. -Echocardiogram results to be followed as outpatient. -We have been holding home medication of Valsartan given poor renal function. This medication can be restarted after creatinine level improves/stabilizes. -Need an outpatient pharmacologic stress testing. -Please take the medications as instructed. -Please return to the hospital if symptoms worsen/not improved. -Patient needs a nocturnal BiPAP. Medications at Discharge Discharge Medications: Stop taking the following medications: Valsartan (Valsartan) 320 MG TAB ORAL DAILY Qty = 30 HYDRALAZINE HCL (Hydralazine HCl) 10 MG TAB ORAL THREE TIMES DAILY Days = 28 Continue taking these medications: Insulin Aspart, Recombinant (Novolog) 100 U/ML DIANN 35 Units Inject into fatty tissue TWICE DAILY Qty = 15 Comments: last dose of novolog given 09/28/15 @ 5PM Insulin Aspart, Recombinant (Novolog) 100 U/ML DIANN 40 Units Inject into fatty tissue Every night Qty = 15 Famotidine (Famotidine) 20 MG TAB 1 Tablet ORAL DAILY Qty = 90 Comments: given 09/26/15 @ 1000 Atorvastatin Calcium (Lipitor) 80 MG TAB 1 Tablet ORAL DAILY Qty = 90 Comments: given 09/28/15 @ 420 pm Tramadol HCl (Ultram) 50 MG TABLET 1 Tablet ORAL EVERY SIX HOURS as needed for PAIN Comments: PER PT MED LIST Aspirin (Children's Aspirin) 81 MG TAB.CHEW 1 Tablet ORAL DAILY Comments: Last Taken: 09/15/16 Time: 10 AM Furosemide (Lasix) 40 MG TAB 1 Tablet ORAL TWICE DAILY Qty = 30 Comments: given 09/28/15 @ 1020 Insulin-Lantus (Lantus) 100 UNIT/ML VIAL 45 Units Inject into fatty tissue TWICE DAILY Comments: PER PT Meclizine HCl (Meclizine HCl) 25 MG TABLET 1 Tablet ORAL as needed for VERTIGO Comments: PER PT MED LIST Start taking the following new medications: Hydralazine HCl (Hydralazine HCl) 25 MG TABLET 25 Milligram ORAL THREE TIMES DAILY Days = 30 No Refills Metoprolol Tartrate (Metoprolol Tartrate) 25 MG TABLET 6.25 Milligram ORAL TWICE DAILY Days = 30 No Refills Copies To: ALLEY GARCÍA,TATI APARICIO; CHIOMA GARCÍA,ALEXANDER Berger; TIMO GARCÍA,SARINA Attending MD Review Statement Documenting Attending: CAYLA GARCÍA,GILLES Gatica
[2016-09-14] MEDS ORDERED: HYDRALAZINE HCL25 M1 PO (11:02)
--- NOTE | 2016-09-14 12:38 | PN- Pulmonary ---
Subjective HPI/Critical Care Issues: The patient is awake and alert. She feels that her shortness of breath has improved since admission. She wants to go home. Objective Current Medications: Current Medications Sig/Thanh Start time Last Medication Dose Route Stop Time Status Admin Acetaminophen 650 MG Q6P PRN 09/09 2215 AC PO Aspirin 81 MG DAILY 09/10 1000 AC 09/14 PO 1029 Atorvastatin Calcium 80 MG 1700 09/10 1700 AC 09/13 PO 1705 Famotidine 20 MG DAILY 09/10 1000 AC 09/14 PO 1029 Furosemide 20 MG 7:30 AM, & 4:30 PM 09/13 1630 AC 09/14 IV 0756 Heparin Sodium 5,000 UNIT Q8 09/10 0600 AC 09/14 (Porcine) SC 0641 Hydralazine HCl 25 MG TID 09/10 1600 AC 09/14 PO 1029 Insulin Aspart 0 TIDAC/HS 09/10 0800 AC 09/14 SC 1215 Insulin Detemir 45 UNITS 0600,2200 09/11 2200 AC 09/14 SC 0640 Metoprolol Tartrate 6.25 MG BID 09/12 1432 AC 09/14 PO 1029 Nystatin 1 VINCE TID 09/13 0342 AC 09/14 TOP 1030 Patient Medication 1 UNIT ONE NR 09/13 1530 DC Teaching ED 09/13 1600 Polyethylene Glycol 17 GM DAILY 09/12 1000 AC PO Senna/Docusate Sodium 1 TAB BID 09/12 1000 AC 09/12 PO 2228 Tramadol HCl 50 MG Q4 PRN 09/12 1717 AC 09/14 PO 0759 Vital Signs & I&O Last 24 Hrs of Vitals and I&O: Vital Signs Date Time Temp Pulse Resp B/P Pulse O2 O2 Flow FiO2 Ox Delivery Rate 09/14 0843 97.3 75 20 158/62 92 Nasal Cannula 09/14 0800 Nasal 4.0L Cannula 09/14 0028 98.1 90 20 148/58 92 Nasal 4.0L Cannula 09/14 0000 93 Nasal 4.0L Cannula 09/13 2310 79 136/80 09/13 2309 79 136/80 09/13 1706 73 136/76 09/13 1647 98.8 73 20 136/76 92 Nasal 4.0L Cannula 09/13 1646 98.8 73 20 136/76 92 Nasal 4.0L Cannula 09/13 1600 92 Nasal 4.0L Cannula Intake & Output 09/14 1600 09/14 0800 09/14 0000 Intake Total 360 600 Output Total 325 1 Balance 35 599 Intake, Oral 360 600 Output, Other 1 Output, Urine 325 Patient 339 lb Weight Exam General Appearance: no apparent distress, alert, awake, obese Head: atraumatic, normal appearance Neck: supple, large neck size Respiratory: normal breath sounds, chest non-tender, no respiratory distress Cardiovascular: S1 and S2 heard, heart sounds are distant Abdomen: normal bowel sounds, soft, non-tender Extremities: 3+ bilateral pitting edema Skin: intact, warm/dry Results Last 24 Hrs of Lab Results: Laboratory Tests 09/14/16 0650: Anion Gap 10, Estimated GFR 31 L, BUN/Creatinine Ratio 30.6 H, Magnesium 2.3 Impression/Plan Impression/Plan Impression/Plan: 1. Diastolic congestive heart failure. 2. 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 3. Morbid obesity. 4. Diabetes. Recommendations: * We'll need to arrange for an outpatient sleep study. * Patient does qualify for BiPAP as per her ABG. Will need to continue nocturnal BiPAP. * Continue nebs/TRC. * Continue negative fluid balance/diuresis. * Monitor BUN and creatinine in the setting of aggressive diuresis. * Continue incentive spirometry. * Agree with plan for short-term rehabilitation. * Continue DVT prophylaxis.
[2016-09-14 15:30] VITALS: BP 160/60
--- NOTE | 2016-09-14 16:06 | PN- Cardiology ---
Subjective Subjective: Chest pain. No palpitations. Shortness of breath is improving. She continues to have lower extremity edema. Objective Vital Signs and I&Os Vital Signs Date Time Temp Pulse Resp B/P Pulse O2 O2 Flow FiO2 Ox Delivery Rate 09/14 1530 98.1 77 20 160/60 94 09/14 0843 97.3 75 20 158/62 92 Nasal Cannula 09/14 0800 Nasal 4.0L Cannula 09/14 0028 98.1 90 20 148/58 92 Nasal 4.0L Cannula 09/14 0000 93 Nasal 4.0L Cannula 09/13 2310 79 136/80 09/13 2309 79 136/80 09/13 1706 73 136/76 09/13 1647 98.8 73 20 13676 92 Nasal 4.0L Cannula 09/13 1646 98.8 73 20 136/76 92 Nasal 4.0L Cannula Intake & Output 09/14 1600 09/14 0800 09/14 0000 09/13 1600 09/13 0800 09/13 0000 Intake Total 600 360 600 450 50 470 Output Total 225 325 1 600 350 400 Balance 375 35 599 -150 -300 70 Intake, IV 0 20 Intake, Oral 600 360 600 450 50 450 Number 1 0 Bowel Movements Output, Other 1 Output, Urine 225 325 600 350 400 Patient 339 lb 356 lb 356 lb Weight Physical Exam: Morbidly obese, elderly female in mild respiratory distress with oxygen in place. Vital signs: See above. HEENT: Normocephalic, atraumatic, EOMI, moist mucous membranes. Neck: No JVD, no bruits. Lungs: Decreased breath sounds bilaterally. Heart: S1, S2 (both distant) with a soft (grade 1/6) systolic murmur. PMI not well felt. No gallop or rub appreciated. Abdomen: Soft, nontender, positive bowel sounds. Extremities: 1+ edema right and 2-3+ edema left lower extremities. Current Medications: Current Medications Sig/Thanh Start time Last Medication Dose Route Stop Time Status Admin Acetaminophen 650 MG Q6P PRN 09/09 2215 AC PO Aspirin 81 MG DAILY 09/10 1000 AC 09/14 PO 1029 Atorvastatin Calcium 80 MG 1700 09/10 1700 AC 09/13 PO 1705 Famotidine 20 MG DAILY 09/10 1000 AC 09/14 PO 1029 Furosemide 20 MG 7:30 AM, & 4:30 PM 09/13 1630 AC 09/14 IV 0756 Heparin Sodium 5,000 UNIT Q8 09/10 0600 AC 09/14 (Porcine) SC 0641 Hydralazine HCl 25 MG TID 09/10 1600 AC 09/14 PO 1029 Insulin Aspart 0 TIDAC/HS 09/10 0800 AC 09/14 SC 1215 Insulin Detemir 45 UNITS 0600,2200 09/11 2200 AC 09/14 SC 0640 Metoprolol Tartrate 6.25 MG BID 09/12 1432 AC 09/14 PO 1029 Nystatin 1 VINCE TID 09/13 0342 AC 09/14 TOP 1030 Polyethylene Glycol 17 GM DAILY 09/12 1000 AC PO Senna/Docusate Sodium 1 TAB BID 09/12 1000 AC 09/12 PO 2228 Tramadol HCl 50 MG Q4 PRN 09/12 1717 AC 09/14 PO 0759 Results Last 48 Hrs of Labs/Mics: Laboratory Tests 09/14/16 0650: Anion Gap 10, Estimated GFR 31 L, BUN/Creatinine Ratio 30.6 H, Magnesium 2.3 09/13/16 1234: Anion Gap 9, Estimated GFR 31 L, BUN/Creatinine Ratio 30.0 H Assessment/Plan Assessment/Plan Assessment: 1. Acute HFpEF exacerbation 2. Second-degree AV block, Mobitz type I 3. Chronic kidney disease 4. Mild troponin elevation secondary to demand ischemia Recommendations: * Continue IV Lasix. * Check basic metabolic profile daily * Monitor input and output * Continue other cardiac medications Continue telemetry? Yes
[2016-09-15 00:30] VITALS: BP 179/74
[2016-09-15 08:28] VITALS: BP 127/50
--- NOTE | 2016-09-15 09:20 | PN- Pulmonary ---
Subjective HPI/Critical Care Issues: The patient is awake and alert. She has been complaining of pain which is treated with Toradol. She reports that her breathing is improved however she remains short of breath with any significant exertion. She does not feel like talking today. Objective Current Medications: Current Medications Sig/Thanh Start time Last Medication Dose Route Stop Time Status Admin Acetaminophen 650 MG Q6P PRN 09/09 2215 AC PO Aspirin 81 MG DAILY 09/10 1000 AC 09/14 PO 1029 Atorvastatin Calcium 80 MG 1700 09/10 1700 AC 09/14 PO 1712 Famotidine 20 MG DAILY 09/10 1000 AC 09/14 PO 1029 Furosemide 20 MG 7:30 AM, & 4:30 PM 09/13 1630 AC 09/15 IV 0835 Heparin Sodium 5,000 UNIT Q8 09/10 0600 AC 09/15 (Porcine) SC 0659 Hydralazine HCl 25 MG TID 09/10 1600 AC 09/14 PO 2134 Insulin Aspart 0 TIDAC/HS 09/10 0800 AC 09/15 SC 0835 Insulin Detemir 45 UNITS 0600,2200 09/11 2200 AC 09/15 SC 0659 Metoprolol Tartrate 6.25 MG BID 09/12 1432 AC 09/14 PO 2134 Nystatin 1 VINCE TID 09/13 0342 AC 09/14 TOP 2135 Ondansetron HCl 4 MG ONCE ONE 09/14 1815 DC 09/14 IV 09/14 181 1818 Polyethylene Glycol 17 GM DAILY 09/12 1000 AC PO Senna/Docusate Sodium 1 TAB BID 09/12 1000 AC 09/12 PO 2228 Tramadol HCl 50 MG Q4 PRN 09/12 1717 AC 09/15 PO 0835 Vital Signs & I&O Last 24 Hrs of Vitals and I&O: Vital Signs Date Time Temp Pulse Resp B/P Pulse O2 O2 Flow FiO2 Ox Delivery Rate 09/15 0828 97.9 75 18 127/50 94 Nasal 4.0L Cannula 09/15 0800 Nasal 3.0L Cannula 09/15 0030 100.1 96 20 179/74 90 Nasal 4.0L Cannula 09/15 0000 91 Nasal 4.0L Cannula 09/14 2134 90 146/70 09/14 2134 90 146/70 09/14 1711 80 160/60 09/14 1600 94 Nasal 4.0L Cannula 09/14 1530 98.1 77 20 160/60 94 Intake & Output 09/15 1600 09/15 0800 09/15 0000 Intake Total 200 940 Output Total 300 850 Balance -100 90 Intake, Oral 200 940 Number 1 Bowel Movements Output, Urine 300 850 Patient 340 lb Weight Exam General Appearance: no apparent distress, alert, awake, obese Head: atraumatic, normal appearance Neck: supple, large neck size Respiratory: normal breath sounds, chest non-tender, no respiratory distress Cardiovascular: S1 and S2 heard, heart sounds are distant Abdomen: normal bowel sounds, soft, non-tender Extremities: 3+ bilateral pitting edema Skin: intact, warm/dry Impression/Plan Impression/Plan Impression/Plan: 1. Diastolic congestive heart failure. 2. 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 3. Morbid obesity. 4. Diabetes. Recommendations: * Will need to arrange for an outpatient sleep study. * Patient does qualify for BiPAP as per her ABG. Will need to continue nocturnal BiPAP fdc. * Continue nebs/TRC. * Continue negative fluid balance/diuresis. * Monitor BUN and creatinine in the setting of aggressive diuresis. * Continue incentive spirometry. * Agree with plan for short-term rehabilitation. * Continue DVT prophylaxis.
[2016-09-15] MEDS ORDERED: METOPROLOL TART25 M1 PO (09:29)
[2016-09-15 12:00] VITALS: BP 127/50
--- NOTE | 2016-09-15 12:23 | PN- Att Addend ---
Attending Addendum Attending Brief Note Pt is tired today, but otherwise feels ok On exam her blood pressure is 158/60, pulse of 76, afebrile (tmax 100.1) breathing at 18-20. Her lungs have decreased breath sounds bilaterally, she has 2-3+ pedal edema and she is morbidly obese. Heart is S1-S2 distant and she's awake and alert. No obvious source of one time temp of 100, now temp is 97.3 BUN is 50 and creatinine is 1.7. She is a 76-year-old with a history of chronic respiratory failure on oxygen chronically for questionable COPD and obesity hypoventilation, diabetes and CKD and she is here with very severe leg edema questionable diastolic heart failure. We have her on IV Lasix and we are watching the BUN and creatinine closely. She also has morbid obesity and needs nocturnal BIPAP per pulm. Ok for discharge to [facility] with nocturnal bipap and f/u BUN/cre in 2-3 days. Cont Lasix and ARB on hold till renal function stabilizes.
== END 2016-09-15 13:55 | DRG 291 ==
LOC: ERH 13:33 → 1NO 17:18 → ERHI 17:18 → 1NO 21:00
PROVIDERS: Physician Assistant; Student in an Organized Health Care Education/Training Program; ADMIT Internal Medicine
DX: I13.0 Hypertensive heart and chronic kidney disease with heart failure and stage 1 through stage 4 chronic kidney disease, or unspecified chronic kidney disease (principal); I50.33 Acute on chronic diastolic (congestive) heart failure; J96.01 Acute respiratory failure with hypoxia; J96.22 Acute and chronic respiratory failure with hypercapnia; I24.8 Other forms of acute ischemic heart disease; E66.2 Morbid (severe) obesity with alveolar hypoventilation; Z68.44 Body mass index [BMI] 60.0-69.9, adult; J44.9 Chronic obstructive pulmonary disease, unspecified; I44.1 Atrioventricular block, second degree; N18.3 Chronic kidney disease, stage 3 (moderate); E78.5 Hyperlipidemia, unspecified; E11.9 Type 2 diabetes mellitus without complications; E66.01 Morbid (severe) obesity due to excess calories; Z87.891 Personal history of nicotine dependence; Z99.81 Dependence on supplemental oxygen
CPT/HCPCS: 1NP; 36415; 82436; 87070; 93005; 93010; 93970; 94799; 96374; 96375; 97001-GP; 97116-GO; 97530-GO; 99291; J1644; J1940; J2405; J2930; J3490

== ENCOUNTER 2016-09-30 06:01 | Inpatient (IN) | payer OTHER, MEDICARE ==
[~2016-09-30] VITALS: Ht 152.4 cm; Wt 152.4 kg
[~2016-09-30 06:01] MED LIST changes: +HYDRALAZINE HCL25 M1 PO; +LANTUS100 UNIT/1 SC; +MECLIZINE HCL25 MG PO; +METOPROLOL TART25 M1 PO
--- NOTE | 2016-09-30 06:06 | ED HEAD/FACIAL INJ COMPLAINT ---
See Addendum History of Present Illness General Chief Complaint: Fall Stated Complaint: "PER EMS FALL" Source: patient, old records, EMS, W10 Exam Limitations: no limitations Vital Signs & Intake/Output Vital Signs & Intake/Output Vital Signs Date Time Temp Pulse Resp B/P Pulse O2 O2 Flow FiO2 Ox Delivery Rate 09/30 625 94 Nasal 4.0L Cannula 09/30 606 97.7 71 22 182/73 93 Nasal 4.0L Cannula Allergies Coded Allergies: Fish Containing Products (Intermediate, RASH, VOMITING 09/09/16) SEAFOOD Penicillins (Mild, RASH 09/09/16) adhesive tape (Mild, RASH AND BURNING 09/09/16) alcohol (BURNING SKIN 09/09/16) shellfish derived (RASH, VOMITING 09/09/16) metformin (Intermediate, DIARRHEA, GI UPSET 09/09/16) Reconcile Medications Aspirin (Children's Aspirin) 81 MG TAB.CHEW 1 TAB PO DAILY HEALTH SUPPLEMENT (Reported) Atorvastatin Calcium (Lipitor) 80 MG TAB 1 TAB PO DAILY CHOLESTEROL (Reported ) Famotidine 20 MG TAB 1 TAB PO DAILY GI (Reported) Furosemide (Lasix) 40 MG TAB 1 TAB PO BID htn Hydralazine HCl 25 MG TABLET 25 MG PO TID htn Insulin Aspart, Recombinant (Novolog) 100 U/ML DIANN 40 U SC QPM DIABETES ( Reported) Insulin Aspart, Recombinant (Novolog) 100 U/ML DIANN 35 U SC BID dm (Reported) Insulin-Lantus (Lantus) 100 UNIT/ML VIAL 45 UNITS SC BID DM (Reported) Meclizine HCl 25 MG TABLET 1 TAB PO PRN VERTIGO (Reported) Metoprolol Tartrate 25 MG TABLET 6.25 MG PO BID HEART Tramadol HCl (Ultram) 50 MG TABLET 1 TAB PO Q6 PRN PAIN (Reported) Triage Nurses Notes Reviewed? yes HPI: Patient sent in from short-term rehabilitation for evaluation after fall with head injury. Patient was transferring back to bed with the help with the staff when she lost her balance and fell forward and hit her upper lip on a table. There is no loss of consciousness. Patient's only complaint is pain to her tailbone. Patient did not fall on her tailbone. Patient does have sacral decubiti ulcers and she states that the pain that she is experiencing is the pain that she always has from his decubiti. Patient denies any headache or blurry vision. Patient is chronically on oxygen but states there is no worsening shortness of breath. There is no chest pain or palpitations. There is no blurry vision. There is no nausea or vomiting. The pain to her tailbone is constant and increases when she is sitting for prolonged period of time on that area. There is no radiation. She rates the pain as 5 out of 10. Past History Travel History Traveled to [place] past 21 day No Medical History Any Pertinent Medical History? 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 No Review of Systems Review of Systems Constitutional: Reports: no symptoms. EENTM: Reports: no symptoms. Respiratory: Reports: no symptoms. Cardiovascular: Reports: no symptoms. GI: Reports: no symptoms. Genitourinary: Reports: no symptoms. Musculoskeletal: Reports: see HPI, back pain. Skin: Reports: no symptoms. Neurological/Psychological: Reports: no symptoms. Hematologic/Endocrine: Reports: no symptoms. Immunologic/Allergic: Reports: no symptoms. All Other Systems: Reviewed and Negative Physical Exam Physical Exam General Appearance: well developed/nourished, mild distress Head: ABRASION TO LEFT SIDE OF UPPER LIP. Eyes: Bilateral: PERRL, EOMI. Ears, Nose, Throat: normal pharynx, normal ENT inspection, hearing grossly normal Neck: normal inspection, supple, full range of motion, no midline tenderness Respiratory: normal breath sounds, chest non-tender, no respiratory distress, lungs clear Cardiovascular: regular rate/rhythm, normal peripheral pulses Gastrointestinal: soft, non-tender Back: MULTIPLE DECUBITI ULCERS IN THE SACRAL AREA. nO SIGNS OF INFECTION. Extremities: normal inspection, normal range of motion, no edema Psychiatric: awake, alert, oriented x 3 Cranial Nerves: normal hearing, normal speech, PERRL Skin: intact, normal color, warm/dry Lymphatic: no anterior cervical sue Progress Differential Diagnosis: facial fracture, ICH, skull fracture Plan of Care: Observant ER for signs of head injury. Hand-Off Endorsed To: FREDI GARCÍA,ALLEY Dowell Endorsed Time: 0700 Pending: other (RE-EVAL) Departure Departure Disposition: ACUTE REHAB FACILITY Condition: Stable Clinical Impression Primary Impression: Head injury Referrals: MAYTE GARCÍA,MICHELLE Bradford (PCP/Family) Departure Forms: Customer Survey General Discharge Information
--- NOTE | 2016-09-30 06:22 | NUR ---
OH LIFT BLANKET UNDER PT ON ARRIVAL. REMOVED AND GIVEN TO EMS TO RETURN BACK TO ECF AT THIS TIME.
--- NOTE | 2016-09-30 06:24 | NUR ---
76YO FEMALE TO RM 6 VIA AMB FROM ECF SP FALL FROM CHAIR WHILE BEING TRANSFERRED BACK TO BED. FALL WAS WITNESSED BY STAFF. NO LOC. PT STRUCK HER UPPER LIP ON BEDSIDE TABLE.
--- NOTE | 2016-09-30 06:25 | NUR ---
DR GREENWOOD IN TO [facility].
--- NOTE | 2016-09-30 06:39 | NUR ---
O2 SAT ON 5L = 89-91. PT MOUTH BREATHING. ENCOURAGED TO TAKE DEEP NASAL BREATHS.
--- NOTE | 2016-09-30 07:20 | NUR ---
PT IS MOUTH BREATHING. PT IS ON 5L NC, SATS 85-86%. DR RAI AWARE.
--- NOTE | 2016-09-30 07:40 | NUR ---
MED PLEATING SUPERVISOR AT BEDSIDE
--- NOTE | 2016-09-30 07:47 | NUR ---
PORT CXR AT BEDSIDE
--- NOTE | 2016-09-30 07:55 | NUR ---
RT AT BEDSIDE FOR ABG.
--- NOTE | 2016-09-30 08:05 | RADIOLOGY REPORT ---
EXAMINATION: XR PORTABLE CHEST CLINICAL INFORMATION: Fall with low oxygen saturation. COMPARISON: 09/12/2016 TECHNIQUE: Portable view of the chest was obtained. FINDINGS: Low lung volumes. The evaluation is limited due to the low lung volumes and patient body habitus. The lung bases are not well-visualized. There appears to be bronchial wall thickening with hazy opacity of the lungs. No pneumothorax. The cardiac silhouette remains prominent, with a calcified aorta. No acute osseous abnormality. IMPRESSION: Limited evaluation. Persistent enlargement of the cardiac silhouette with bilateral bronchial wall thickening and hazy opacity most suggestive of edema.
[2016-09-30 08:42] LABS: ABSOLUTE BASOPHIL COUNT 0 /CUMM (0.0-0.2); ABSOLUTE EOSINOPHIL COUNT 0.1 /CUMM (0.0-0.7); ABSOLUTE GRANULOCYTE CT 7.6 /CUMM (1.4-6.5); ABSOLUTE LYMPH COUNT 0.8 /CUMM (1.2-3.4); ABSOLUTE MONOCYTE COUNT 1.1 /CUMM (0.10-0.60); BASOPHIL % 0.5 % (0.0-2.0); EOSINOPHIL % 0.6 % (0-5); HEMATOCRIT 37.6 % (37-47); MEAN CORPUSCULAR HGB 31.2 PG (27.0-31.0); MEAN CORPUSCULAR HGB CONC 32.5 G/DL (33.0-37.0); PLATELET COUNT 188 /CUMM (130-400); RBC DISTRIBUTION WIDTH 15.3 % (11.5-14.5); RED BLOOD CELL CT 3.91 /CUMM (4.20-5.40); WHITE BLOOD CELL COUNT 9.6 /CUMM (4.8-10.8)
--- NOTE | 2016-09-30 08:43 | NUR ---
PT PLACED ON BIPAP BY RT
--- NOTE | 2016-09-30 10:46 | NUR ---
BIPAP DECREASED TO 40% BY RT.
--- NOTE | 2016-09-30 11:30 | History & Physical ---
AYANNA HENSLEY 09/30/16 1130: General Information and HPI MD Statement: I have seen and personally examined CINTHIA AZEVEDO and documented this H&P. The patient is a 76 year old F who presented with a patient stated chief complaint of [s/p fall, difficulty breathing]. Source of Information: patient, rehab Exam Limitations: unable to give history History of Present Illness: Patient is 76 year old female with multiple co-morbidities including CHF, b/l lower extremety edema, HTN, HLD, questionable COPD, obesity hypoventilation syndrome, acid reflux, CKD was brought from [facility] after a fall. Most of the information was obtained by calling the rehab facility, as per the staff, patient tried to get up from her bed this morning to the walk to her chair when she missed the chair and fell face forward. She has a slit like laceration on left uper lip area. Patient does not report of any pain in the area. Per rehab facility staff, recently patient has been having nasal congestion with productive cough of yellowish sputum, she was started on Avelox 400 mg daily on 09/29/16 for a total of 7 days. They denied any fever, chills etc. ABGs done in ER were significant for respiratory acidosis. Patient also has a questionable obesity hypoventilation syndrome. She was started on BIPAP in ER with repeat ABGs pending in 2 hours. Per staff at rehab, patient's b/l lower extremety edema and reddness has also worsened. She takes 40 PO lasix BID and refuses to leg elevation. SHe is assistance of one to use bedside commode. Patient was recently discharged from [facility] on 09/15/15 after being treated for b/l lower extremety edema. Recent changes in her medications include , tramadol 15 mg q6hr mild or 2 tabs of 15mg for moderate pain Allergies/Medications Allergies: Coded Allergies: Fish Containing Products (Intermediate, RASH, VOMITING 09/09/16) SEAFOOD Penicillins (Mild, RASH 09/09/16) adhesive tape (Mild, RASH AND BURNING 09/09/16) alcohol (BURNING SKIN 09/09/16) shellfish derived (RASH, VOMITING 09/09/16) metformin (Intermediate, DIARRHEA, GI UPSET 09/09/16) Home Med list Aspirin (Children's Aspirin) 81 MG TAB.CHEW 1 TAB PO DAILY HEALTH SUPPLEMENT (Reported) Atorvastatin Calcium (Lipitor) 80 MG TAB 1 TAB PO DAILY CHOLESTEROL (Reported ) Famotidine 20 MG TAB 1 TAB PO DAILY GI (Reported) Furosemide (Lasix) 40 MG TAB 1 TAB PO BID htn Hydralazine HCl 25 MG TABLET 25 MG PO TID htn Insulin Aspart (Novolog) (Unknown Strength) VIAL (Unknown Dose) SEE SLIDING SCALE DIABETES (Reported) Insulin-Lantus (Lantus) 100 UNIT/ML VIAL 45 UNITS SC BID DM (Reported) Metoprolol Tartrate 25 MG TABLET 6.25 MG PO BID HEART Tramadol HCl (Ultram) 50 MG TABLET 1 TAB PO Q6 PRN PAIN (Reported) Past History Travel History Traveled to [place] past 21 day No Medical History Neurological: peripheral neuropathy EENT: NONE Cardiovascular: CHF, hypertension, hyperlipidemia, ?PVC'S Respiratory: bronchitis, COPD Gastrointestinal: ACID REFLUX Hepatic: NONE Renal: chronic kidney disease Musculoskeletal: NONE Psychiatric: NONE Endocrine: diabetes Blood Disorders: NONE 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 Other Medical Hx: Morbid obesity, second degree AV block, chronic edema History of MRSA: No History of VRE: No History of CDIFF: No Pneumonia Vaccine: 06/14/15 Influenza Vaccine: 07/15/16 Surgical History Surgical History: cholecystectomy, right knee Past Family/Social History Family History Relations & Conditions if any BROTHER FH: brain tumor Psychosocial History Services at Home: Home Health Aide, Oxygen ETOH Use: denies use Illicit Drug Use: denies illicit drug use Exam & Diagnostic Data Last 24 Hrs of Vital Signs/I&O Vital Signs Date Time Temp Pulse Resp B/P Pulse O2 O2 Flow FiO2 Ox Delivery Rate 09/30 1130 97.0 56 24 160/67 93 BIPAP 40% 09/30 1045 60 96 09/30 1045 63 24 99 BIPAP 40% 09/30 0910 59 24 182/70 96 BIPAP 45% 09/30 0841 62 96 09/30 0810 94.8 67 16 186/69 91 Nasal 5.0L Cannula 09/30 0626 94 Nasal 4.0L Cannula 09/30 0607 97.7 71 22 182/73 93 Nasal 4.0L Cannula Intake & Output 09/30 1600 09/30 0800 09/30 0000 Intake Total Output Total Balance Patient 181.437 kg Weight Physical Exam General Appearance Alert, Mild Distress, awake, confused Skin seroangiounes discharge from pressure ulcer at the back of left thigh HEENT Atraumatic Neck Supple Cardiovascular Normal S1, Normal S2 Lungs unable to hear breath sounds due to body habitus Abdomen Soft, No Tenderness Body Front and Back (Adult) 1) 2) 3) Last 24 Hrs of Labs/Chris: Laboratory Tests 09/30/16 0820: Anion Gap 7, Estimated GFR 26 L, BUN/Creatinine Ratio 22.1, Glucose 75, Calcium 8.7, Magnesium 2.2, Troponin I 0.10, Tem-V-Kbsdwcnvtia Pept 2880 H, CBC w Diff NO MAN DIFF REQ, RBC 3.91 L, MCV 96.0, MCH 31.2 H, RDW 15.3 H, MPV 8.0, Gran % 79.0 H, Lymphocytes % 8.6 L, Monocytes % 11.3 H, Eosinophils % 0.6, Basophils % 0.5, Absolute Granulocytes 7.6 H, Absolute Lymphocytes 0.8 L, Absolute Monocytes 1.1 H, Absolute Eosinophils 0.1, Absolute Basophils 0, PUBS MCHC 32.5 L 09/30/16 0800: pH 7.23 *L, pCO2 74 *H, pO2 70 L, HCO3 30 H, ABG O2 Sat (Measured) 91.0 L, P- 50 (Temp Corrected) YES, Carboxyhemoglobin 0.7 L, O2 Concentration % 5L, Temperature 97.7, O2 Delivery Method NC, Phlebotomy Draw Site RIGHT RADIAL Diagnostic Data EKG Results right bundle branch block QTC 511 CXR Results pulmonary edema Assessment/Plan Assessment: Patient is 76 year old female with multiple co-morbidities including CHF, b/l lower extremety edema, HTN, HLD, questionable COPD, obesity hypoventilation syndrome, acid reflux, CKD was brought from [facility] after a fall. Most of the information was obtained by calling the rehab facility, as per the staff, patient tried to get up from her bed this morning to the walk to her chair when she missed the chair and fell face forward. She has a slit like laceration on left uper lip area. Patient does not report of any pain in the area. Labs and Vitals as above CXR pulmonary edema EKG RBBB QTC 511, no st changes Echo last year: Normal size left ventricle. Moderate to severe concentric left ventricular hypertrophy. No obvious regional wall motion abnormalities. Normal left ventricular ejection fraction visually estimated at greater than 60 %. Problem List: 1. Hypercarbic respiratory failure on Bipap 2. B/l lower extremety swelling with reddness 3. DANYELLE on CKD 4. Pressure ulcer on posterior aspect of left thigh 5. HTN 6. HLD Assessment and Plan; ABGs revealed Hypercarbic respiratory failure, patient is on BIPAP, will repeat ABGs in 2 hours. Patient was on Moxifloxacin at the rehab facility for her URI symptoms. No previous culture reports, can start unasyn for now as it would also cover for b/l lower extremety questionable cellulitis. Patient is diabetic so would benefit from coverage. Willc ontinue her on levemir 45 units BID and her SS has been updated after calling rehab facility. WIll continue her chronic meds including hydralazine and metoprolol. Patient did not take any meds this morning. Will get wound consult on board for left thigh pressure ulcers. Patient has QTC 511, avoid QTC prolonging drugs. Pulmonary consult service and Dr. Lawrence is on board need recommendations about lasix dosage DVT ppx SC heprin TID Patient is DNR/DNI per her living will As Ranked By This Provider Problem List: 1. CHF (congestive heart failure) 2. Hypercapnic respiratory failure 3. Diabetes mellitus type 2 Core Measures/Miscellaneous Acute Coronary Syndrome ACS Diagnosis: No Cerebrovascular Accident CVA/TIA Diagnosis: No Congestive Heart Failure CHF Diagnosis: No Venous Thromboembolism VTE Risk Factors: Age > 40 VTE Prophylaxis Ordered Inpt: Mech & Pharm No Mech VTE prophylaxis d/t: No contraindications No VTE Pharm Prophylaxis d/t: No contraindications VTE Diagnosis: No VTE Type: NONE VTE Confirmed by (Test): NONE Severe Sepsis Severe Sepsis Present: No Septic Shock Septic Shock Present: No Miscellaneous Documentation Attending Case Discussed With: HEYDI SOLORZANO MD Primary Care Physician: MICHELLE HU MD Patient sees these Specialists Dr. Howard Brody Level of Patient Care: Telemetry HEYDI SOLORZANO MD 09/30/16 3844: Review of Systems Review of Systems Constitutional: Reports: malaise, weakness. Attending Review Statement Attending Statement Attending Statement: examined this patient, discuss w/resident/PA/TALENT SOLUTIONS MANAGER, agreed w/resident/PA/TALENT SOLUTIONS MANAGER, reviewed EMR data (avail), discussed with nursing, reviewed images, amended to note Attending Assessment/Plan: The patient is a 76 yo female with h/o chronic diastolic CHF, obesity hypoventilation syndrome, ?COPD, HTN, CKD & HL who was brought to [place] ED today from [facility] after falling face forward today while getting out of bed. Staff had noted some nasal congestion with productive cough of yellow sputum and she had begun on Avelox 400 mg daily on 09/29. There was no fever, chills or other symptoms. There was also redness and swelling of LE noted. In the ED she was noted to be somnolent and ABGs showed hypercapnic respiratory failure with pCO2 in 70s. She was placed on BIPAP. CXR showed CHF. At the time of my exam she was still drowsy and unable to give history. Physical Exam: VS: T 97.0, P 56, R 24, BP 160/67, PO 93% on 40% BIPAP HEENT: eyes- PERRLA, EOMI milvia- dry mucosa (on BIPAP) Neck: no JVD/bruits Chest: diminished breath sounds w/o wheeze/rhonchi Cor: RRR, nl S1, S2, w/o murm, distant HS Abd: BS+, obese, non-tender Ext: + pressure ulcer posterior right thigh, bilateral calf swelling 1+ with erythema and warmth, pulses 1+ Neuro: FLETCHER, difficult to examine Labs/Test- as above Impression/Plan: #Acute and Chronic Hypercapnic Respiratory Failure- has h/o obesity hypoventilation syndrome. Improved on BIPAP. Plan: Admit to telemetry. Continue BIPAP. Pulmonary Consult- Dr. Brody. #Acute Diastolic CHF- noted on CXR. Prior normal LVEF. Plan: Will control BP and follow. #HTN- BP elevated. Plan: Continue Metoprolol and Hydralazine and follow. #Cellulitis LE- bilateral calf erythema and warmth. Plan: Agree with Clindamycin and follow. Wound care consult for thigh ulcer. #CKD/DANYELLE- Cr 1.9 with baseline 1.3 08/29. Plan: Will follow. #Hyperlipidemia- on Atorvastatin. Plan: Continue Atorvastatin. #DM2- on insulin. Plan: Follow glucoscans and continue Insulin. #?COPD- some bronchospasm. Plan: Agree with IV Medrol/Albuterol aerosol.
--- NOTE | 2016-09-30 11:45 | NUR ---
O2 SAT 92-93% ON BIPAP 40%. EXTRA BLANKETS PROVIDED PER REQUEST. AWAITING ADMISSION ORDERS
--- NOTE | 2016-09-30 11:49 | NUR ---
HOUSE STAFF MD AT BEDSIDE
--- NOTE | 2016-09-30 12:08 | NUR ---
PT ASSISTED ONTO BEDPAN, SMALL AMOUNT OF CREAMY YELLOW OUTPUT. SIGNIFICANT SKIN LESION/BREAKDOWN TO BILATERAL DORSAL THIGHS, L>R. NONSTICK STERILE DRESSINGS APPLIED, HOUSE STAFF AWARE AND WOUND CARE CONSULT PLACED BY . PT REFUSING LARA AT THIS TIME DESPITE TEACHING. BIPAP CONTINUES. PT REPOSITIONED FOR COMFORT AND LINENS CHANGED.
--- NOTE | 2016-09-30 13:08 | NUR ---
LACTIC DRAWN AND SENT TO LAB. PT YELLING OUT TO THIS RN TO RUB HER LEGS. LEGS ARE NOTED TO BE RED AND EDEMATOUS BILATERALLY. L LEG THAT IS BOTHERING HER IS WEEPING UPON TOUCH. ELEVATED WITH BLANKETS.
--- NOTE | 2016-09-30 14:10 | NUR ---
PT MEDICATED PER eMAR, UNWILLING TO DRINK WATER PROVIDED. REFUSING ORAL CARE. REFUSING MOUTH SUCTION. PRODUCTIVE COUGH INTERMITTENT. MOUTH AND TONGUE SEVERELY DRY. BIPAP REPOSITIONED FOR EFFICACY, RT PAGED REGARDING CONTINUED LOW 02 SAT
--- NOTE | 2016-09-30 14:56 | NUR ---
PT ACCEPTED WATER AT THIS TIME. WANTS TO GO HOME, DOES NOT DEMONSTRATE UNDERSTANDING OF NEED FOR ADMISSION DUE TO SOB. FREQUENT URGE TO URINATE AND MINIMAL OUTPUT, CONT TO REFUSE LARA.
--- NOTE | 2016-09-30 15:03 | NUR ---
pt admitted to room 172
--- NOTE | 2016-09-30 15:35 | NUR ---
RN UNABLE TO TAKE REPORT AT THIS TIME
--- NOTE | 2016-09-30 16:00 | NUR ---
DR GREENWOOD AT BEDSIDE FOR EVAL. UPDATE GIVEN BY THIS RN TO THIS MD REGARDING PT'S STATUS AND PROGRESS THROUGHOUT THE DAY
--- NOTE | 2016-09-30 16:33 | NUR ---
PT NOT ABLE TO DRINK JUICE AT THIS TIME, MEDICATED WITH DEXTROSE PER eMAR FOR ACCUCHECK 63
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
[2016-09-30 17:21] VITALS: BP 146/82
--- NOTE | 2016-09-30 18:45 | NUR ---
1730 FROM ER ON BIPAP. PT DROWSY BUT AROUSABLE. VSS. PT PLACED ON TELE MONITOR HR 50-60'S. IV INTACT TO LAC. SKIN +3 TO BILATERAL LOWER EXTREM RED AND WHEEPING. BILATERAL MID THIGHS MACERATED PENDING WOUND CONSULT. SIZE WREN BARIATRIC BED ORDERED. BEDALARM PLACED. CALL RAI IN REACH. WILL CONTINUE TO MONITOR.
--- NOTE | 2016-09-30 22:53 | NUR ---
PT IS A+OX3. NO C/O PAIN. PT HAS A CONGESTED COUGH BUT NON-PRODUCTIVE, SOB ON EXERTION, INSPIRATORY AND EXPIRATORY WHEEZES THROUGHOUT LUNG MITCHELL. PRESENTLY ON 45% BIPAP. BLOOD SUGAR AT HS WAS 61, ASYMPTOMATIC, 8OZ OF ORANGE JUICE GIVEN. RECHECK WAS 116. BLE EDEMA, REDNESS AND WHEEPING, HELD ALPS. PT IS ON HEPARIN SUB-Q. #108, IS AWARE. DRESSING BEHING BILATERAL THIGHS CHANGED. SEROSANGUINOUS DRAINAGE NOTED. INCONTINENT CARE GIVEN. SAFETY MAINTAINED. BED IN LOWEST POSITION. CALL LIGHT IN REACH.
--- NOTE | 2016-09-30 23:08 | Admission Certification ---
Admission Certification Certification Statement - As attending physician, I certify that at the time of - admission, based on clinical presentation, severity of - symptoms, need for further diagnostic testing and - therapeutic interventions, and risk of adverse outcomes - without in-hospital treatment, in my clinical assessment, - this patient requires an acute hospital stay for a minimum - of two nights or longer. I have also considered psychsocial - factors such as support system, advanced age, financial - issues, cognitive issues, and failed out-patient treatments, - past re-admission history, safety of patient, and lack of - compliance as applicable. Specific rationale supporting this admission is: The patient presents with acute hypercapnic respiratory failure and CHF. Needs BIPAP and close respiratory monitoring. COPD exacerbation. Needs IV steroids and aerosol. Cardiololgy/Pulmonary evaluations.
[2016-09-30 23:30] VITALS: BP 136/70
--- NOTE | 2016-10-01 07:17 | PN- Housestaff ---
MARGARET GARCÍA,[facility] 10/01/16 0717: Subjective Follow-up For: Acute hypercapnic respiratory failure Acute kidney injury on top of chronic kidney disease Bilateral cellulitis Subjective: Patient was seen and examined this morning. She is on overnight BiPAP routinely. Nurses reported that she pulled her BiPAP off overnight and started to turn blue. She was not cooperating with nursing staff to get back on BiPAP. She was given a sitter for this purpose. When we examined her this morning, she was on BiPAP and communicating by nodding. She denies any chest pain/ palpitations/ cough/ abdomen pain/ weakness/ change in bladder habits/ urine color. She endorses feeling itchy over both her lower limbs. No pain. Tele reported Sinus rhythm with PVC's, PAC's and a rate ranging 57-72 beats/min, No events Review of Systems Constitutional: Denies: see HPI. Objective Last 24 Hrs of Vital Signs/I&O Vital Signs Date Time Temp Pulse Resp B/P Pulse O2 O2 Flow FiO2 Ox Delivery Rate 10/01 1625 92 Nasal 10L Cannula 10/01 1625 97.7 75 20 118/60 92 BIPAP 10/01 1542 72 118/68 10/01 1408 90 Nasal 10L Cannula 10/01 1100 92 Nasal 10L Cannula 10/01 0925 91 Nasal 8L Cannula 10/01 0925 98.9 81 24 140/60 90 BIPAP 45% 10/01 0914 81 140/60 10/01 0913 81 140/60 10/01 0845 79 93 10/01 0800 93 BIPAP 45% 10/01 0601 77 94 10/01 0430 90 95 10/01 0323 69 10/01 0131 78 95 10/01 0000 BIPAP 45% 09/30 2330 97.1 72 24 136/70 93 BIPAP 09/30 2245 71 94 09/30 2211 73 147/74 09/30 2211 73 147/74 09/30 2125 BIPAP 40% 09/30 2000 78 93 09/30 1757 97 BIPAP 45% 09/30 1721 96.8 68 20 146/82 97 BIPAP 09/30 1710 68 93 Intake & Output 10/01 1600 10/01 0800 10/01 0000 Intake Total 550 64 240 Output Total Balance 550 64 240 Intake, IV 70 64 Intake, Oral 480 240 Physical Exam General Appearance: Alert, Oriented X3, Cooperative, No Acute Distress Skin: No Rashes, No Breakdown, No Significant Lesion HEENT: Atraumatic, PERRLA, EOMI, Mucous Membr. moist/pink Neck: Supple Cardiovascular: Regular Rate, Normal S1, Normal S2, No Murmurs Lungs: decrease air entery Abdomen: Normal Bowel Sounds, Soft, No Tenderness Neurological: Normal Speech, Strength at 5/5 X4 Ext, Normal Tone, Sensation Intact, Cranial Nerves 3-12 NL, Reflexes 2+ Extremities: No Clubbing, No Cyanosis, Bilatera +1 pedel edema BL erythemia, warm Vascular: Normal Pulses Assessment/Plan Assessment: Patient is 76 year old female with multiple co-morbidities including CHF, b/l lower extremety edema, HTN, HLD, questionable COPD, obesity hypoventilation syndrome, acid reflux, CKD was brought from [facility] after a [facility]. Recent history of nasal congestion with productive cough of yellowish sputum, worsened bilateral lower extremity edema and redness. Patient is recently discharged from [facility] on 09/15/15 after being treated for b/l lower extremety edema diastolic congestive heart failure with ejection fraction greater than 60%(September 2015) Problem list #Acute hypercapnic respiratory failure -Patient has history of obesity hypoventilation syndrome with mostly underlying sleep apnea -On admission ABG was pH 7.23, PCO2 74, PaO2 70, bicarbonate 30 -ABG this morning show some improvement pH 7.36, bicarbonate 52, CO2 70, bicarbonate 29, still hypercapnia with metabolic compensation but improved since admission -Chest x-ray admission IMPRESSION: Limited evaluation. Persistent enlargement of the cardiac silhouette with bilateral bronchial wall thickening and hazy opacity most suggestive of edema. -Pulmonology consultation was obtained thanks for recommendation -Continue Solu-Medrol 40 mg every 12 -Continue BiPAP when necessary and nocturnal -TRC with nebulizer -We contacted the rehabilitation facility regarding BiPAP, the nurse reported that the patient never used the BiPAP that was prescribed on last discharge from the hospital because she never had it and no sleep study was done for her #Congestive heart failure with preserved ejection fraction -Patient has history of diastolic CHF, recent echo September 2015 shows ejection fraction more than 60% -We held Lasix on admission given worsening kidney function -Waiting for cardiology recommendation regarding Lasix -I/O measurement, patient is incontinent #Bilateral lower extremity cellulitis -Patient has history of bilateral lower extremity edema -She reported worsening of the pre-existing redness -Patient was started on clindamycin 600 mg every 8 IV, Patient has allergy for penicillin #Hypertension and hyperlipidemia -Continue metoprolol 6.25 mg twice a day -Continue hydralazine 25 mg 3 times a day -Continue atorvastatin 80 mg daily -Continue aspirin 81 mg daily #Diabetes mellitus -Continue levemir 45 units twice a day -NovoLog sliding scale before meals -Continue accu check -Diet diabetic consistent 3 -DVT prophylaxis heparin subcutaneous -Code DNR/DNI Problem List: 1. Diabetes mellitus type 2 2. Dyslipidemia 3. CHF (congestive heart failure) 4. Hypercapnic respiratory failure Pain Ratin Pain Location: n/a Pain Goal: Remain pain free Pain Plan: as needed Tomorrow's Labs & Rationales: CBc, CMP JEANINE GARCÍA,HEYDI 10/01/16 2136: Attending MD Review Statement Attending Statement Attending MD Statement: examined this patient, discuss w/resident/PA/OFFICE NURSE, agreed w/resident/PA/OFFICE NURSE, reviewed EMR data (avail), discussed with nursing, discussed with case mgmt, amended to note Attending Assessment/Plan: The patient was seen and discussed with house staff. She was not using BIPAP at nursing facility. Pulmonary input appreciated. Await Cardiology input.
[2016-10-01 08:25] LABS: ABSOLUTE BASOPHIL COUNT 0 /CUMM (0.0-0.2); ABSOLUTE EOSINOPHIL COUNT 0 /CUMM (0.0-0.7); ABSOLUTE GRANULOCYTE CT 6.7 /CUMM (1.4-6.5); ABSOLUTE LYMPH COUNT 0.4 /CUMM (1.2-3.4); ABSOLUTE MONOCYTE COUNT 0 /CUMM (0.10-0.60); BASOPHIL % 0 % (0.0-2.0); EOSINOPHIL % 0 % (0-5); HEMATOCRIT 35.2 % (37-47); MEAN CORPUSCULAR HGB 31.5 PG (27.0-31.0); MEAN CORPUSCULAR VOLUME 95.7 FL (81.0-99.0); MEAN PLATELET VOLUME 8.5 FL (7.4-10.4); PLATELET COUNT 182 /CUMM (130-400); RBC DISTRIBUTION WIDTH 15.4 % (11.5-14.5); RED BLOOD CELL CT 3.68 /CUMM (4.20-5.40); WHITE BLOOD CELL COUNT 7.1 /CUMM (4.8-10.8)
[2016-10-01 09:19] LABS: GRANULOCYTE % 94.7 % (42.2-75.2)
[2016-10-01 09:25] VITALS: BP 140/60
--- NOTE | 2016-10-01 09:50 | PN- Pulmonary ---
Subjective HPI/Critical Care Issues: Patient seen and examined. No chest pain, dyspnea improved and more arousable today. No nausea, vomiting, diarrhea or constipation. Afebrile and hemodynamically stable. Has been on BiPAP overnight. Objective Current Medications: Current Medications Sig/Thanh Start time Last Medication Dose Route Stop Time Status Admin Acetaminophen 650 MG Q8P PRN 09/30 1500 AC PO Albuterol Sulfate 3 ML EVERY 4 HRS/AWAKE 10/01 0800 AC 10/01 INH 0930 Aspirin 0 .STK-MED ONE 09/30 1356 DC PO Aspirin 81 MG DAILY 09/30 1234 AC 10/01 PO 0913 Atorvastatin Calcium 80 MG 1700 09/30 1700 AC PO Clindamycin 300 MG IQ8 09/30 1600 DC Dextrose/Water 50 ML IV Clindamycin 600 MG IQ8 09/30 1600 AC 10/01 Dextrose/Water 50 ML IV 0911 Dextrose 25 GM ONCE ONE 09/30 1630 DC 09/30 IV 09/30 1631 1633 Famotidine 0 .STK-MED ONE 09/30 1356 DC PO Famotidine 20 MG DAILY 09/30 1235 AC 10/01 PO 0913 Heparin Sodium 5,000 UNIT Q8 09/30 2200 AC 10/01 (Porcine) SC 0550 Hydralazine HCl 25 MG TID 09/30 1235 AC 10/01 PO 0913 Insulin Aspart 0 TIDAC 09/30 1700 AC SC Insulin Detemir 45 UNITS BID 09/30 2200 AC SC Methylprednisolone 40 MG Q12 09/30 2200 AC 10/01 IV 0911 Metoprolol Tartrate 6.25 MG BID 09/30 1235 AC 10/01 PO 0914 Patient Medication 1 UNIT ONE NR 09/30 1445 DC Teaching ED 09/30 2045 Tramadol HCl 50 MG Q12P PRN 09/30 1500 AC PO Vital Signs & I&O Last 24 Hrs of Vitals and I&O: Vital Signs Date Time Temp Pulse Resp B/P Pulse O2 O2 Flow FiO2 Ox Delivery Rate 10/01 924 98.9 81 24 140/60 90 BIPAP 45% 10/01 0914 81 140/60 10/01 0913 81 140/60 10/01 0601 77 94 10/01 0430 90 95 10/01 0323 69 10/01 0131 78 95 10/01 0000 BIPAP 45% 09/30 2330 97.1 72 24 136/70 93 BIPAP 09/30 2245 71 94 09/30 2211 73 147/74 09/30 2211 73 147/74 09/30 2125 BIPAP 40% 09/30 2000 78 93 09/30 1757 97 BIPAP 45% 09/30 1721 96.8 68 20 146/82 97 BIPAP 09/30 1710 68 93 09/30 1535 97.2 56 24 146/70 97 BIPAP 45% 09/30 1456 24 96 BIPAP 45% 09/30 1420 60 98 09/30 1411 68 24 164/70 92 BIPAP 40% 09/30 1408 56 160/67 09/30 1408 56 160/67 09/30 1130 97.0 56 24 160/67 93 BIPAP 40% 09/30 1045 60 96 09/30 1045 63 24 99 BIPAP 40% Intake & Output 10/01 1600 10/01 0800 10/01 0000 Intake Total 64 240 Output Total Balance 64 240 Intake, IV 64 Intake, Oral 240 Exam Other Physical Findings: gen arousable and awake heent ncat, large neck size, dry mouth cvs s1, s2 lungs rare rhonchi abd soft bs+, obesity ext edematous Results Last 24 Hrs of Lab Results: Laboratory Tests 10/01/16 0845: pH 7.36, pCO2 52 H, pO2 70 L, HCO3 29 H, ABG O2 Sat (Measured) 93.0 L, Carboxyhemoglobin 0.2 L, O2 Concentration % 45%, Respiration Rate 24, O2 Delivery Method VISION, Vent Mode ST, Expiratory Pressure 6, Inspiratory Pressure 24, Phlebotomy Draw Site LEFT RADIAL 10/01/16 0620: Anion Gap 5, Estimated GFR 26 L, BUN/Creatinine Ratio 24.2, CBC w Diff NO MAN DIFF REQ, RBC 3.68 L, MCV 95.7, MCH 31.5 H, RDW 15.4 H, MPV 8.5, Gran % 94.7 H, Lymphocytes % 5.0 L, Monocytes % 0.3 L, Eosinophils % 0, Basophils % 0 L, Absolute Granulocytes 6.7 H, Absolute Lymphocytes 0.4 L, Absolute Monocytes 0 L, Absolute Eosinophils 0, Absolute Basophils 0, PUBS MCHC 33.0 09/30/16 1330: pH 7.30 *L, pCO2 62 *H, pO2 70 L, HCO3 30 H, ABG O2 Sat (Measured) 94.0 L, P- 50 (Temp Corrected) YES, Carboxyhemoglobin 1.1 L, O2 Concentration % 40%, Temperature 97.0, Respiration Rate 24, O2 Delivery Method BIPAP, Vent Mode ST, Expiratory Pressure 6, Inspiratory Pressure 24, Phlebotomy Draw Site RIGHT RADIAL 09/30/16 1304: Lactic Acid 0.7 Impression/Plan Impression/Plan Impression/Plan: Impression 76 year old woman with dm, obesity and diastolic chf. Likely underlying pamela/ohs. Here with acute hypercarbic respiratory failure. DANYELLE likely secondary to prerenal azotemia. Lower extremity wounds. Plan -Patient was ordered to have nocturnal BiPAP at her nursing facility will find out if she has in fact used it -possible obesity hypoventilation syndrome and likely underlying sleep apnea -Continue break off BiPAP use as needed and nocturnal -No even fluid balance -Monitor creatinine closely and ins and outs creatinine continues to worsen nephrology consultation may be useful -trc/nebs -Antibiotics per primary team for lower extremity wounds -DVT prophylaxis at all times
[2016-10-01 16:25] VITALS: BP 118/60
--- NOTE | 2016-10-01 18:16 | NUR ---
PT REFUSED TO TAKE SPS, INFORMED OF RISKS AND DR. HAIDER MADE AWARE THROUGH TEXT PAGE. ALSO PT REFUSES LARA AND UNABLE TO LIE FLAT TO INSERT. UNABLE TO GET UA/UC AT THIS TIME. DR. HAIDER AWARE. PT INCONT OF URINE AND REFUSES TO GET CHANGE FOR HOURS. WILL CONTINUE TO MONITOR.
[2016-10-01 22:00] VITALS: BP 150/80
[2016-10-02 07:43] LABS: ABSOLUTE BASOPHIL COUNT 0 /CUMM (0.0-0.2); ABSOLUTE EOSINOPHIL COUNT 0 /CUMM (0.0-0.7); ABSOLUTE GRANULOCYTE CT 5.4 /CUMM (1.4-6.5); ABSOLUTE LYMPH COUNT 0.6 /CUMM (1.2-3.4); ABSOLUTE MONOCYTE COUNT 0.3 /CUMM (0.10-0.60); BASOPHIL % 0.5 % (0.0-2.0); EOSINOPHIL % 0 % (0-5); GRANULOCYTE % 85.1 % (42.2-75.2); HEMATOCRIT 35.7 % (37-47); MEAN CORPUSCULAR HGB 31.7 PG (27.0-31.0); MEAN PLATELET VOLUME 8.9 FL (7.4-10.4); PLATELET COUNT 184 /CUMM (130-400); RBC DISTRIBUTION WIDTH 15.7 % (11.5-14.5); RED BLOOD CELL CT 3.72 /CUMM (4.20-5.40); WHITE BLOOD CELL COUNT 6.3 /CUMM (4.8-10.8)
--- NOTE | 2016-10-02 08:04 | Cons- Wound Care ---
General Information and HPI Consulting Request Date of Consult: 10/02/16 Requested By: HEYDI SOLORZANO MD Reason for Consult: Bilateral posterior thigh decubitus ulcers present on admission History of Present Illness: Patient is a 76-year-old with morbid obesity chronic hypercapnic respiratory failure chronic venous insufficiency admitted after a fall and found to be in acute on chronic hypercapnic respiratory failure. Consultation is requested for bilateral posterior thigh pressure ulcers present on admission due to persistent sitting in a chair. She has bilateral lower extremity erythema due to chronic edema and possible cellulitis for which she is on antibiotics Allergies/Medications Allergies: Coded Allergies: Fish Containing Products (Intermediate, RASH, VOMITING 09/09/16) SEAFOOD Penicillins (Mild, RASH 09/09/16) adhesive tape (Mild, RASH AND BURNING 09/09/16) alcohol (BURNING SKIN 09/09/16) shellfish derived (RASH, VOMITING 09/09/16) metformin (Intermediate, DIARRHEA, GI UPSET 09/09/16) Home Med List: Aspirin (Children's Aspirin) 81 MG TAB.CHEW 1 TAB PO DAILY HEALTH SUPPLEMENT (Reported) Atorvastatin Calcium (Lipitor) 80 MG TAB 1 TAB PO DAILY CHOLESTEROL (Reported ) Famotidine 20 MG TAB 1 TAB PO DAILY GI (Reported) Furosemide (Lasix) 40 MG TAB 1 TAB PO BID htn Hydralazine HCl 25 MG TABLET 25 MG PO TID htn Insulin Aspart (Novolog) (Unknown Strength) VIAL (Unknown Dose) SEE SLIDING SCALE DIABETES (Reported) Insulin-Lantus (Lantus) 100 UNIT/ML VIAL 45 UNITS SC BID DM (Reported) Metoprolol Tartrate 25 MG TABLET 6.25 MG PO BID HEART Tramadol HCl (Ultram) 50 MG TABLET 1 TAB PO Q6 PRN PAIN (Reported) Past History Travel History Traveled to [place] past 21 day No Medical History Blood Transfusion Hx: No Neurological: peripheral neuropathy EENT: NONE Cardiovascular: CHF, hypertension, hyperlipidemia, ?PVC'S Respiratory: bronchitis, COPD Gastrointestinal: ACID REFLUX Hepatic: NONE Renal: chronic kidney disease Musculoskeletal: NONE Psychiatric: NONE Endocrine: diabetes Blood Disorders: NONE Cancer(s): 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 [facility] Facility Services at Home: Home Health Aide, Oxygen Smoking Status: Former Smoker ETOH Use: denies use Illicit Drug Use: denies illicit drug use Exam & Diagnostic Data Vital Signs and I&O Vital Signs Result Date Time Pulse Ox 90 10/02 0544 Pulse 55 10/02 0544 O2 Delivery BIPAP 10/02 0000 B/P 140/51 10/01 2200 Temp 97.9 10/01 2200 Resp 20 10/01 2200 O2 Flow Rate 10L 10/01 1625 Intake & Output 10/02 0000 10/01 1600 10/01 0800 Intake Total 100 550 64 Output Total Balance 100 550 64 Intake, IV 70 64 Intake, Oral 100 480 There are symmetrical bilateral posterior thigh ulcers the left measuring 5 x 4 cm stage III at surface no undermining or exposed bone over the right posterior thigh is a 3 x 2 cm stage III pressure ulcer no undermining exposed bone present on admission Assessment/Plan Impression/Plan: 76-year-old morbidly obese woman who was admitted after a fall and found to have bilateral posterior thigh symmetrical stage III pressure ulcers. Patient is now on a low air loss mattress but is immobile because of morbid obesity. Recommend daily wound cleansing and cover with moist wound care using Xeroform as the wound beds are uncovered and appear dry. Areas should be offloaded to the extent possible. The patient is to be gotten out of bed ensure that there is no pressure to these areas while seated Consult Acknowledgment - Thank you for your consult request.
[2016-10-02 08:36] VITALS: BP 134/66
--- NOTE | 2016-10-02 08:39 | PN- Housestaff ---
See Addendum MARGARET GARCÍA,[facility] 10/02/16 0829: Subjective Follow-up For: Acute hypercapnic respiratory failure Acute kidney injury on top of chronic kidney disease Bilateral LE cellulitis Subjective: Patient was seen and examined this morning. She had an uneventful night and has been comfortable on BiPAP. She complains of lower limb pain and rates it 10/10. Nurse reported no events for her overnight. Tele reported sinus juan with wenckebach and 1st degree heart block, 48-86 beats/min, No events. Review of Systems Constitutional: Reports: chills. Denies: fever. EENTM: Denies: blurred vision, nasal congestion. Cardiovascular: Denies: chest pain, palpitations. Respiratory: Denies: cough. Gastrointestinal: Denies: abdominal pain, nausea, vomiting. Genitourinary: Denies: dysuria, hematuria. Musculoskeletal: Denies: see HPI. Objective Last 24 Hrs of Vital Signs/I&O Vital Signs Date Time Temp Pulse Resp B/P Pulse O2 O2 Flow FiO2 Ox Delivery Rate 10/02 0544 55 90 10/02 0415 55 90 10/02 0156 59 90 10/02 0000 BIPAP 10/01 2323 86 92 10/01 2200 67 140/51 10/01 2200 97.9 70 20 150/80 99 BIPAP 10/01 2108 67 140/51 10/01 1625 92 Nasal 10L Cannula 10/01 1625 97.7 75 20 118/60 92 BIPAP 10/01 1542 72 118/68 10/01 1408 90 Nasal 10L Cannula 10/01 1100 92 Nasal 10L Cannula 10/01 0925 91 Nasal 8L Cannula 10/01 0925 98.9 81 24 140/60 90 BIPAP 45% 10/01 0914 81 140/60 10/01 0913 81 140/60 10/01 0845 79 93 Intake & Output 10/02 1600 10/02 0800 10/02 0000 Intake Total 100 100 Output Total Balance 100 100 Intake, Oral 100 100 Physical Exam General Appearance: Alert, Oriented X3, Cooperative, No Acute Distress Skin: No Rashes, No Breakdown, No Significant Lesion HEENT: Atraumatic, PERRLA, EOMI, Mucous Membr. moist/pink Neck: Supple Cardiovascular: Regular Rate, Normal S1, Normal S2, No Murmurs Lungs: Clear to Auscultation, Normal Air Movement Abdomen: Normal Bowel Sounds, Soft, No Tenderness Neurological: Normal Speech, Strength at 5/5 X4 Ext, Normal Tone, Sensation Intact, Cranial Nerves 3-12 NL, Reflexes 2+ Extremities: No Clubbing, No Cyanosis, bilateral LE pedel edema +2 bilateral erythema improving Vascular: Normal Pulses Assessment/Plan Assessment: Patient is 76 year old female with multiple co-morbidities including CHF, b/l lower extremety edema, HTN, HLD, questionable COPD, obesity hypoventilation syndrome, acid reflux, CKD was brought from [facility] after a fall. Recent history of nasal congestion with productive cough of yellowish sputum, worsened bilateral lower extremity edema and redness. Patient is recently discharged from [facility] on 09/15/15 after being treated for b/l lower extremety edema diastolic congestive heart failure with ejection fraction greater than 60%(September 2015) Problem list #Acute hypercapnic respiratory failure #Congestive heart failure with preserved ejection fraction #Bilateral lower extremity cellulitis #Hypertension and hyperlipidemia #Diabetes mellitus #bilateral posterior thigh stage III pressure ulcer #Acute hypercapnic respiratory failure -Patient has history of obesity hypoventilation syndrome with mostly underlying sleep apnea -On admission ABG was pH 7.23, PCO2 74, PaO2 70, bicarbonate 30 -ABG this morning show some improvement pH 7.36, bicarbonate 52, CO2 70, bicarbonate 29, still hypercapnia with metabolic compensation but improved since admission -Chest x-ray admission IMPRESSION: Limited evaluation. Persistent enlargement of the cardiac silhouette with bilateral bronchial wall thickening and hazy opacity most suggestive of edema. -Pulmonology consultation was obtained thanks for recommendation -Continue Solu-Medrol 40 mg every 12 -Continue BiPAP nocturnal -TRC with nebulizer -We contacted the rehabilitation facility regarding BiPAP, the nurse reported that the patient never used the BiPAP that was prescribed on last discharge from the hospital because she never had it and no sleep study was done for her #Congestive heart failure with preserved ejection fraction -Patient has history of diastolic CHF, recent echo September 2015 shows ejection fraction more than 60% -Start lasix 60 mg BID IV, check creatinine tomorrow (cardiology and nephrology were consulted) -I/O measurement, patient is incontinent #Bilateral lower extremity cellulitis -Patient has history of bilateral lower extremity edema -She reported worsening of the pre-existing redness -The erythemia is subsiding -Continue clindamycin 600 mg every 8 IV, Patient has allergy for penicillin #Hypertension and hyperlipidemia -Continue metoprolol 6.25 mg twice a day -Continue hydralazine 25 mg 3 times a day -Continue atorvastatin 80 mg daily -Continue aspirin 81 mg daily #Diabetes mellitus -Continue levemir 45 units twice a day -NovoLog sliding scale before meals -Continue accu check #bilateral posterior thigh stage III pressure ulcer -Wound care consultaion was obtained -Daily wound cleansing and cover with moist wound care using Xeroform -Reccomendation for moblization to decrease the pressure to these areas -PT evalaution and treat -Diet diabetic consistent 3 -DVT prophylaxis heparin subcutaneous -Code DNR/DNI -Consulation Sarah, Pulm, nephrology, PT Problem List: 1. Hypercapnic respiratory failure 2. CHF (congestive heart failure) 3. Dyslipidemia 4. Diabetes mellitus type 2 Pain Ratin Pain Location: BL lower exterimties Pain Goal: Remain pain free Pain Plan: acteomenophen 650 Q8 PRN for mild pain Tramadol PO 50 mg Q12 moderate pain percusat 1 tab Q6 PRN severe pain Tomorrow's Labs & Rationales: CBC, CMP JEANINE GARCÍA,HEYDI 10/02/162046: Attending MD Review Statement Attending Statement Attending MD Statement: examined this patient, discuss w/resident/PA/MEDICAL SALES REPRESENTATIVE, agreed w/resident/PA/MEDICAL SALES REPRESENTATIVE, reviewed EMR data (avail), discussed with nursing, discussed with case mgmt, amended to note Attending Assessment/Plan: The patient was seen and discussed with house staff. Agree with the plan of care as outlined.
--- NOTE | 2016-10-02 11:26 | PN- Pulmonary ---
Subjective HPI/Critical Care Issues: Patient seen and examined. No chest pain, dyspnea has significantly improved and she is alert and awake. No nausea, vomiting, diarrhea or constipation. Afebrile and hemodynamically stable. Objective Current Medications: Current Medications Sig/Thanh Start time Last Medication Dose Route Stop Time Status Admin Acetaminophen 650 MG .STK-MED ONE 10/01 1738 DC PO 10/01 1739 Acetaminophen 650 MG Q8P PRN 09/30 1500 AC PO Albuterol Sulfate 3 ML EVERY 4 HRS/AWAKE 10/01 0800 AC 10/02 INH 1122 Aspirin 81 MG DAILY 09/30 1234 AC 10/02 PO 0906 Atorvastatin Calcium 80 MG 1700 09/30 1700 AC 10/01 PO 1542 Clindamycin 600 MG IQ8 09/30 1600 AC 10/02 Dextrose/Water 50 ML IV 0905 Famotidine 20 MG DAILY 09/30 1235 AC 10/02 PO 0906 Furosemide 60 MG 7:30 AM, & 4:30 PM 10/02 1630 AC IV Heparin Sodium 5,000 UNIT Q8 09/30 2200 AC 10/02 (Porcine) SC 0531 Hydralazine HCl 25 MG TID 09/30 1235 AC 10/02 PO 0906 Insulin Aspart 0 TIDAC 09/30 1700 AC 10/02 SC 0905 Insulin Detemir 45 UNITS BID 09/30 2200 10/02 SC 0905 Methylprednisolone 40 MG Q12 09/30 2200 10/02 IV 0905 Metoprolol Tartrate 6.25 MG BID 09/30 1235 10/02 PO 0906 Oxycodone/ 1 TAB Q6P PRN 10/02 0845 AC Acetaminophen PO Oxycodone/ 1 TAB ONCE ONE 10/01 2315 DC 10/02 Acetaminophen PO 10/01 2316 0011 Oxycodone/ 1 TAB ONCE ONE 10/01 1800 DC 10/01 Acetaminophen PO 10/01 1801 1804 Sodium Polystyrene 60 ML ONCE ONE 10/01 1330 DC Sulfonate PO 10/01 1331 Tramadol HCl 50 MG Q12P PRN 09/30 1500 AC 10/02 PO 0909 Vital Signs & I&O Last 24 Hrs of Vitals and I&O: Vital Signs Date Time Temp Pulse Resp B/P Pulse O2 O2 Flow FiO2 Ox Delivery Rate 10/02 1118 61 92 10/02 0906 69 134/66 10/02 0906 69 134/66 10/02 0844 95 Nasal 10L Cannula 10/02 0836 97.5 69 20 134/66 94 BIPAP 10/02 0820 60 92 10/02 0544 55 90 10/02 0415 55 90 10/02 0156 59 90 10/02 0000 BIPAP 10/01 2323 86 92 10/01 2200 67 140/51 10/01 2200 97.9 70 20 150/80 99 BIPAP 10/01 2108 67 140/51 10/01 1625 92 Nasal 10L Cannula 10/01 1625 97.7 75 20 118/60 92 BIPAP 10/01 1542 72 118/68 10/01 1408 90 Nasal 10L Cannula Intake & Output 10/02 1600 10/02 0800 10/02 0000 Intake Total 100 100 Output Total Balance 100 100 Intake, Oral 100 100 Exam Other Physical Findings: gen arousable and awake heent ncat, large neck size, dry mouth cvs s1, s2 lungs rare rhonchi abd soft bs+, obesity ext edematous Results Last 24 Hrs of Lab Results: Laboratory Tests 10/02/16 0915: Anion Gap 9, Estimated GFR 19 L, BUN/Creatinine Ratio 26.0 H 10/02/16 0645: CBC w Diff NO MAN DIFF REQ, RBC 3.72 L, MCV 96.0, MCH 31.7 H, RDW 15.7 H, MPV 8.9, Gran % 85.1 H, Lymphocytes % 9.8 L, Monocytes % 4.6, Eosinophils % 0, Basophils % 0.5, Absolute Granulocytes 5.4, Absolute Lymphocytes 0.6 L, Absolute Monocytes 0.3, Absolute Eosinophils 0, Absolute Basophils 0, PUBS MCHC 33.0 Impression/Plan Impression/Plan Impression/Plan: Impression 76 year old woman with dm, obesity and diastolic chf. Likely underlying pamela/ohs. Here with acute hypercarbic respiratory failure. DANYELLE likely secondary to prerenal azotemia. Lower extremity wounds. Plan -Nocturnal BiPAP -possible obesity hypoventilation syndrome and likely underlying sleep apnea, if feasible would be useful to check his an outpatient sleep study -No even fluid balance -Monitor creatinine closely and ins and outs creatinine continues to worsen nephrology consultation may be useful -trc/nebs -Antibiotics per primary team for lower extremity wounds -DVT prophylaxis at all times
--- NOTE | 2016-10-02 13:13 | RADIOLOGY REPORT ---
EXAMINATION: XR PORTABLE CHEST CLINICAL INFORMATION: Shortness of breath. Bilateral crackles. Presumptive diagnosis of CHF. COMPARISON: Several prior chest x-rays, most recent of which is dated 09/30/2016. TECHNIQUE: AP semierect portable view of the chest was obtained. FINDINGS: Evaluation is significantly limited due to apical lordotic technique, portable film, patient's body habitus and low lung volumes. The cardiomediastinal silhouette is enlarged, unchanged. Low lung volumes are seen. There is now only central vascular congestion seen with resolution of the previously noted interstitial edema. There remains opacity in the retrocardiac left lung base, incompletely assessed on this limited exam. Findings may be related to technical artifact/body habitus, versus lung parenchymal consolidation or effusion. No pneumothorax is seen. Bony structures are poorly assessed. IMPRESSION: Extremely limited exam. Findings are overall suggestive of improvement in lung aeration with resolution of previously seen pulmonary edema and with persistent mild central vascular congestion and persistent nonspecific retrocardiac left lung base opacity (artifact versus consolidation versus effusion).
--- NOTE | 2016-10-02 13:41 | NUR ---
PHYSICAL THERAPY: Recieved consult orders, reviewed chart, spoke to RN. Per RN, patient is not appropraite for PT evaluation at this time. Patient de-sats with bed mobilities and requires BiPap. Will f/u tomorrow when patient is more medically stable.
--- NOTE | 2016-10-02 14:40 | Cons- Nephrology ---
General Information and HPI Consulting Request Date of Consult: 10/02/16 Requested By: HEYDI SOLORZANO MD Reason for Consult: Acute kidney injury Source of Information: patient, old records Exam Limitations: no limitations History of Present Illness: Of note this was one year ago. Presents with shortness of breath apparently says she was taking naproxen every day. She otherwise denies any previous history of renal disease and history of kidney stones or sections. She has been followed up periodically with Logan Sevilla MD. This 76-year-old woman was readmitted with increasing shortness of breath. On laboratory examination was found that her creatinine was up to 1.9. She denies any previous history of renal disease. She also was made with shortness of breath. Of note, she had been seen by Blayne Maddox MD in September 2015. His evaluation revealed high- grade proteinuria of up to 7 g. I do not see that a serum immunoelectrophoresis was performed. Also to see that hepatitis studies were ordered. She denies any family history of renal disease she most recently saw Logan Sevilla MD in April 2016. There is no family history of end-stage renal disease. There is no one in the family on dialysis. Allergies/Medications Allergies: Coded Allergies: Fish Containing Products (Intermediate, RASH, VOMITING 09/09/16) SEAFOOD Penicillins (Mild, RASH 09/09/16) adhesive tape (Mild, RASH AND BURNING 09/09/16) alcohol (BURNING SKIN 09/09/16) shellfish derived (RASH, VOMITING 09/09/16) metformin (Intermediate, DIARRHEA, GI UPSET 09/09/16) Home Med List: Aspirin (Children's Aspirin) 81 MG TAB.CHEW 1 TAB PO DAILY HEALTH SUPPLEMENT (Reported) Atorvastatin Calcium (Lipitor) 80 MG TAB 1 TAB PO DAILY CHOLESTEROL (Reported ) Famotidine 20 MG TAB 1 TAB PO DAILY GI (Reported) Furosemide (Lasix) 40 MG TAB 1 TAB PO BID htn Hydralazine HCl 25 MG TABLET 25 MG PO TID htn Insulin Aspart (Novolog) (Unknown Strength) VIAL (Unknown Dose) SEE SLIDING SCALE DIABETES (Reported) Insulin-Lantus (Lantus) 100 UNIT/ML VIAL 45 UNITS SC BID DM (Reported) Metoprolol Tartrate 25 MG TABLET 6.25 MG PO BID HEART Tramadol HCl (Ultram) 50 MG TABLET 1 TAB PO Q6 PRN PAIN (Reported) Current Medications: Current Medications Sig/Thanh Start time Last Medication Dose Route Stop Time Status Admin Acetaminophen 650 MG .STK-MED ONE 10/01 1738 DC PO 10/01 1739 Acetaminophen 650 MG Q8P PRN 09/30 1500 AC PO Albuterol Sulfate 3 ML EVERY 4 HRS/AWAKE 10/01 0800 AC 10/02 INH 1122 Aspirin 81 MG DAILY 09/30 1234 AC 10/02 PO 0906 Atorvastatin Calcium 80 MG 1700 09/30 1700 AC 10/01 PO 1542 Clindamycin 600 MG IQ8 09/30 1600 AC 10/02 Dextrose/Water 50 ML IV 0905 Famotidine 20 MG DAILY 09/30 1235 10/02 PO 0906 Furosemide 80 MG 7:30 AM, & 4:30 PM 10/03 0730 AC IV Furosemide 60 MG 7:30 AM, & 4:30 PM 10/02 1630 DC IV Furosemide 80 MG ONCE ONE 10/02 1445 AC IV 10/02 1446 Heparin Sodium 5,000 UNIT Q8 09/30 2200 10/02 (Porcine) SC 1355 Hydralazine HCl 25 MG TID 09/30 1235 10/02 PO 0906 Insulin Aspart 0 TIDAC 09/30 1700 10/02 SC 1355 Insulin Detemir 45 UNITS BID 09/30 2200 10/02 SC 0905 Methylprednisolone 40 MG Q12 09/30 2200 10/02 IV 0905 Metoprolol Tartrate 6.25 MG BID 09/30 1235 10/02 PO 0906 Oxycodone/ 1 TAB Q6P PRN 10/02 0845 AC Acetaminophen PO Oxycodone/ 1 TAB ONCE ONE 10/01 2315 DC 10/02 Acetaminophen PO 10/01 2316 0011 Oxycodone/ 1 TAB ONCE ONE 10/01 1800 DC 10/01 Acetaminophen PO 10/01 1801 1804 Patient Medication 1 ED .STK-MED ONE 10/02 1345 DC Teaching ED 10/02 1346 Tramadol HCl 50 MG Q12P PRN 09/30 1500 10/02 PO 0909 Review of Systems Review of Systems Constitutional: Denies: chills, diaphoresis, fever, malaise. EENTM: Denies: blurred vision, double vision, visual changes, nasal congestion, epistaxis. Cardiovascular: Denies: chest pain, edema, orthopena. Respiratory: Reports: orthopnea, short of breath. Denies: cough, hemoptysis. GI: Denies: constipation, diarrhea, distention, bowel incontinence, melena, nausea, bloody stool, changes in stool. Genitourinary: Denies: dysuria, frequency, hematuria, hesitation, nocturia, pain. Musculoskeletal: Denies: back pain, gout, joint pain. Skin: Denies: dryness, erythema, jaundice, rash. Neurological/Psychological: Reports: see HPI, anxiety. Denies: petit mal seizures, tonic-clonic seizures. 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 [facility] Services at Home: Home Health Aide, Oxygen Smoking Status: Former Smoker ETOH Use: denies use Illicit Drug Use: denies illicit drug use Exam & Diagnostic Data Vital Signs and I&O Vital Signs Date Time Temp Pulse Resp B/P Pulse O2 O2 Flow FiO2 Ox Delivery Rate 10/02 1118 61 92 10/02 0906 69 134/66 10/02 0906 69 134/66 10/02 0844 95 Nasal 10L Cannula 10/02 0836 97.5 69 20 134/66 94 BIPAP 10/02 0820 60 92 10/02 0800 Nasal 10L Cannula 10/02 0544 55 90 10/02 0415 55 90 10/02 0156 59 90 10/02 0000 BIPAP 10/01 2323 86 92 10/01 2200 67 140/51 10/01 2200 97.9 70 20 150/80 99 BIPAP 10/01 2108 67 140/51 10/01 1625 92 Nasal 10L Cannula 10/01 1625 97.7 75 20 118/60 92 BIPAP 10/01 1542 72 118/68 Intake & Output 10/02 0400 10/01 1600 10/01 0400 09/30 0400 Intake Total 630 100 614 240 Output Total Balance 630 100 614 240 Intake, IV 50 134 Intake, Oral 580 100 480 240 Patient 400 lb Weight Physical Exam General Appearance: well developed/nourished, no apparent distress, alert, anxious Head: atraumatic, normal appearance, ecchymosis (left cheek) Eyes: Bilateral: PERRL, EOMI, pale conjunctivae. Ears, Nose, Throat: normal pharynx Neck: cannot assess JVD because of body habitus Respiratory: decreased breath sounds Cardiovascular: regular rate/rhythm, edema, gallop Peripheral Pulses: 2+ tibialis posterior (R), 2+ tibialis posterior (L) Gastrointestinal: normal bowel sounds, soft, non-tender Extremities: she has edema up to her lower chest Neurologic/Psych: no motor/sensory deficits, awake, alert, oriented x 3 Skin: intact, normal color, warm/dry Lymphatic: no cervical or supraclavicular lymphadenopathy Results Pertinent Lab Results: Laboratory Tests 10/02 10/02 10/02 1434 0915 0645 Chemistry Sodium (137 - 145 mmol/L) 136 L Potassium (3.5 - 5.1 mmol/L) 5.8 H Chloride (98 - 107 mmol/L) 97 L Carbon Dioxide (22 - 30 mmol/L) 30 Anion Gap (5 - 16) 9 BUN (7 - 17 mg/dL) 65 H Creatinine (0.5 - 1.0 mg/dL) 2.5 H Estimated GFR (>60 ml/min) 19 L BUN/Creatinine Ratio (7 - 25 %) 26.0 H Hematology CBC w Diff NO MAN DIFF REQ WBC (4.8 - 10.8 /CUMM) 6.3 RBC (4.20 - 5.40 /CUMM) 3.72 L Hgb (12.0 - 16.0 G/DL) 11.8 L Hct (37 - 47 %) 35.7 L MCV (81.0 - 99.0 FL) 96.0 MCH (27.0 - 31.0 PG) 31.7 H RDW (11.5 - 14.5 %) 15.7 H Plt Count (130 - 400 /CUMM) 184 MPV (7.4 - 10.4 FL) 8.9 Gran % (42.2 - 75.2 %) 85.1 H Lymphocytes % (20.5 - 51.1 %) 9.8 L Monocytes % (1.7 - 9.3 %) 4.6 Eosinophils % (0 - 5 %) 0 Basophils % (0.0 - 2.0 %) 0.5 Absolute Granulocytes (1.4 - 6.5 /CUMM) 5.4 Absolute Lymphocytes (1.2 - 3.4 /CUMM) 0.6 L Absolute Monocytes (0.10 - 0.60 /CUMM) 0.3 Absolute Eosinophils (0.0 - 0.7 /CUMM) 0 Absolute Basophils (0.0 - 0.2 /CUMM) 0 PUBS MCHC (33.0 - 37.0 G/DL) 33.0 Urines Ur Random Creatinine Cancelled U Random Total Protein Cancelled 10/01 10/01 1450 0845 Blood Gas pH (7.35 - 7.45 PH) 7.36 pCO2 (35 - 45 TORR) 52 H pO2 (80 - 100 TORR) 70 L HCO3 (21 - 28 MEQ/L) 29 H ABG O2 Sat (Measured) (>96.0 %) 93.0 L Carboxyhemoglobin (1.5 - 5.0 %) 0.2 L O2 Concentration % 45% Respiration Rate (BPM) 24 O2 Delivery Method VISION Vent Mode ST Expiratory Pressure (CM H2O P) 6 Inspiratory Pressure (CM H2O P) 24 Miscellaneous Phlebotomy Draw Site LEFT RADIAL Urines Urine Color Cancelled Urine Clarity Cancelled Urine pH Cancelled Ur Specific [place] Cancelled Urine Protein Cancelled Urine Ketones Cancelled Urine Nitrite Cancelled Urine Bilirubin Cancelled Urine Urobilinogen Cancelled Ur Leukocyte Esterase Cancelled Ur Microscopic Cancelled Urine Hemoglobin Cancelled Urine Glucose Cancelled 10/01 09/30 0620 1555 Chemistry Sodium (137 - 145 mmol/L) 138 Potassium (3.5 - 5.1 mmol/L) 5.4 H Chloride (98 - 107 mmol/L) 99 Carbon Dioxide (22 - 30 mmol/L) 34 H Anion Gap (5 - 16) 5 BUN (7 - 17 mg/dL) 46 H Creatinine (0.5 - 1.0 mg/dL) 1.9 H Estimated GFR (>60 ml/min) 26 L BUN/Creatinine Ratio (7 - 25 %) 24.2 Lactic Acid Cancelled Hematology CBC w Diff NO MAN DIFF REQ WBC (4.8 - 10.8 /CUMM) 7.1 RBC (4.20 - 5.40 /CUMM) 3.68 L Hgb (12.0 - 16.0 G/DL) 11.6 L Hct (37 - 47 %) 35.2 L MCV (81.0 - 99.0 FL) 95.7 MCH (27.0 - 31.0 PG) 31.5 H RDW (11.5 - 14.5 %) 15.4 H Plt Count (130 - 400 /CUMM) 182 MPV (7.4 - 10.4 FL) 8.5 Gran % (42.2 - 75.2 %) 94.7 H Lymphocytes % (20.5 - 51.1 %) 5.0 L Monocytes % (1.7 - 9.3 %) 0.3 L Eosinophils % (0 - 5 %) 0 Basophils % (0.0 - 2.0 %) 0 L Absolute Granulocytes (1.4 - 6.5 /CUMM) 6.7 H Absolute Lymphocytes (1.2 - 3.4 /CUMM) 0.4 L Absolute Monocytes (0.10 - 0.60 /CUMM) 0 L Absolute Eosinophils (0.0 - 0.7 /CUMM) 0 Absolute Basophils (0.0 - 0.2 /CUMM) 0 PUBS MCHC (33.0 - 37.0 G/DL) 33.0 09/30 09/30 09/30 1330 1304 0820 Blood Gas pH (7.35 - 7.45 PH) 7.30 *L pCO2 (35 - 45 TORR) 62 *H pO2 (80 - 100 TORR) 70 L HCO3 (21 - 28 MEQ/L) 30 H ABG O2 Sat (Measured) (>96.0 %) 94.0 L P-50 (Temp Corrected) YES Carboxyhemoglobin (1.5 - 5.0 %) 1.1 L O2 Concentration % 40% Temperature (97.0 - 100.0 FARH) 97.0 Respiration Rate (BPM) 24 O2 Delivery Method BIPAP Vent Mode ST Expiratory Pressure (CM H2O P) 6 Inspiratory Pressure (CM H2O P) 24 Chemistry Sodium (137 - 145 mmol/L) 138 Potassium (3.5 - 5.1 mmol/L) 4.7 Chloride (98 - 107 mmol/L) 99 Carbon Dioxide (22 - 30 mmol/L) 32 H Anion Gap (5 - 16) 7 BUN (7 - 17 mg/dL) 42 H Creatinine (0.5 - 1.0 mg/dL) 1.9 H Estimated GFR (>60 ml/min) 26 L BUN/Creatinine Ratio (7 - 25 %) 22.1 Glucose (65 - 99 mg/dL) 75 Lactic Acid (0.7 - 2.1 mmol/L) 0.7 Calcium (8.4 - 10.2 mg/dL) 8.7 Phosphorus (2.5 - 4.5 mg/dL) 5.3 H Magnesium (1.6 - 2.3 mg/dL) 2.2 Troponin I (< 0.11 ng/ml) 0.10 [id number] Pept (<125 pg/mL) 2880 H Hematology CBC w Diff NO MAN DIFF REQ WBC (4.8 - 10.8 /CUMM) 9.6 RBC (4.20 - 5.40 /CUMM) 3.91 L Hgb (12.0 - 16.0 G/DL) 12.2 Hct (37 - 47 %) 37.6 MCV (81.0 - 99.0 FL) 96.0 MCH (27.0 - 31.0 PG) 31.2 H RDW (11.5 - 14.5 %) 15.3 H Plt Count (130 - 400 /CUMM) 188 MPV (7.4 - 10.4 FL) 8.0 Gran % (42.2 - 75.2 %) 79.0 H Lymphocytes % (20.5 - 51.1 %) 8.6 L Monocytes % (1.7 - 9.3 %) 11.3 H Eosinophils % (0 - 5 %) 0.6 Basophils % (0.0 - 2.0 %) 0.5 Absolute Granulocytes (1.4 - 6.5 /CUMM) 7.6 H Absolute Lymphocytes (1.2 - 3.4 /CUMM) 0.8 L Absolute Monocytes (0.10 - 0.60 /CUMM) 1.1 H Absolute Eosinophils (0.0 - 0.7 /CUMM) 0.1 Absolute Basophils (0.0 - 0.2 /CUMM) 0 PUBS MCHC (33.0 - 37.0 G/DL) 32.5 L Miscellaneous Phlebotomy Draw Site RIGHT RADIAL 09/30 0800 Blood Gas pH (7.35 - 7.45 PH) 7.23 *L pCO2 (35 - 45 TORR) 74 *H pO2 (80 - 100 TORR) 70 L HCO3 (21 - 28 MEQ/L) 30 H ABG O2 Sat (Measured) (>96.0 %) 91.0 L P-50 (Temp Corrected) YES Carboxyhemoglobin (1.5 - 5.0 %) 0.7 L O2 Concentration % 5L Temperature (97.0 - 100.0 FARH) 97.7 O2 Delivery Method NC Miscellaneous Phlebotomy Draw Site RIGHT RADIAL Assessment/Plan Assessment/Recommendations Assessment: 1. Acute worsening of her kidney injury. We'll need to review but she tells me she was taking proximal and every day that can both recurrent heart failure and worsening kidney function. Next 2. Hypertension next number diabetes mellitus he's had diabetes for what sounds like greater than 40 years 3. 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 The other issue would be whether or not this was FSGS related to obesity. It may be helpful to obtain a serum immunoelectrophoresis and exclude the possibility of a paraproteinemia. I could not find that that has been done. 4. Hyperkalemia. This may be addressed by vigorous IV diuresis. 5. Volume overload she has pitting edema up to her lower chest and would favor beginning furosemide 80 mg IV twice a day. Also metolazone 2.5 perhaps 5 mg each day one hour before the initial furosemide dose. 6. I do not favor placement of a Mg. Recommendations: 1. Limit sodium to 2 g per day 2. Metolazone 2.5 per day next 3. Agree with furosemide 4. It may be helpful to weigh this patient each and every day.
--- NOTE | 2016-10-02 15:54 | Cons- Cardiology ---
General Information and HPI Consulting Request Date of Consult: 10/02/16 Requested By: HEYDI SOLORZANO MD Reason for Consult: Witnessed fall during a [employer] lift transfer at her short-term rehabilitation facility. Source of Information: patient, old records Exam Limitations: clinical condition, poor historian History of Present Illness: Ms. Germán Barnes is a 76 year-old female with a history of morbid obesity, former heavy tobacco use, COPD, suspected obstructive sleep apnea and obesity hyporventilation syndrome, hypertension, dyslipidemia, diabetes mellitus, chronic kidney disease, ventricular ectopy, intermittent second degree atrioventricular block (Mobitz type I), left ventricular hypertrophy, systolic/ diastolic dysfunction, and previous biventricular heart failure who presented from short-term rehabilitation following a witnessed fall during a transfer from a [employer] lift. She additionally complains of shortness of breath, intermittent productive cough , orthopnea, lower extremity edema, etc. Her initial chest x-ray performed in the emergency department on 09/30/2016 was a limited study, but revealed persistent enlargement of the cardiac silhouette with bilateral bronchial wall thickening and hazy opacity most suggestive of edema. She had not received any diuretic since her ED evaluation until furosemide 80 mg IV 1 was just given on the recommendation of nephrology. Of note is the fact the patient has been on furosemide 40 mg twice daily by mouth at short-term rehabilitation. Allergies/Medications Allergies: Coded Allergies: Fish Containing Products (Intermediate, RASH, VOMITING 09/09/16) SEAFOOD Penicillins (Mild, RASH 09/09/16) adhesive tape (Mild, RASH AND BURNING 09/09/16) alcohol (BURNING SKIN 09/09/16) shellfish derived (RASH, VOMITING 09/09/16) metformin (Intermediate, DIARRHEA, GI UPSET 09/09/16) Home Med List: Aspirin (Children's Aspirin) 81 MG TAB.CHEW 1 TAB PO DAILY HEALTH SUPPLEMENT (Reported) Atorvastatin Calcium (Lipitor) 80 MG TAB 1 TAB PO DAILY CHOLESTEROL (Reported ) Duloxetine HCl 60 MG CAPSULE.DR 1 CAP PO DAILY dEPRESSION AND ANXIETY ( Reported) Famotidine 20 MG TAB 1 TAB PO DAILY GI (Reported) Furosemide (Lasix) 40 MG TAB 1 TAB PO BID htn Hydralazine HCl 25 MG TABLET 25 MG PO TID htn Insulin Aspart (Novolog) (Unknown Strength) VIAL (Unknown Dose) SEE SLIDING SCALE DIABETES (Reported) Insulin-Lantus (Lantus) 100 UNIT/ML VIAL 45 UNITS SC BID DM (Reported) Metoprolol Tartrate 25 MG TABLET 6.25 MG PO BID HEART Tramadol HCl (Ultram) 50 MG TABLET 1 TAB PO Q6 PRN PAIN (Reported) Review of Systems Review of Systems: A 14 point system review was obtained and was noncontributory, other than as above. 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 Assisted Facility Services at Home: Home Health Aide, Oxygen Smoking Status: Former Smoker ETOH Use: denies use Illicit Drug Use: denies illicit drug use Exam & Diagnostic Data Vital Signs and I&O Vital Signs Date Time Temp Pulse Resp B/P Pulse O2 O2 Flow FiO2 Ox Delivery Rate 10/02 1118 61 92 10/02 0906 69 134/66 10/02 0906 69 134/66 10/02 0844 95 Nasal 10L Cannula 10/02 0836 97.5 69 20 134/66 94 BIPAP 10/02 0820 60 92 10/02 0800 Nasal 10L Cannula 10/02 0544 55 90 10/02 0415 55 90 10/02 0156 59 90 10/02 0000 BIPAP 10/01 2323 86 92 10/01 2200 67 140/51 10/01 2200 97.9 70 20 150/80 99 BIPAP 10/01 2108 67 140/51 10/01 1625 92 Nasal 10L Cannula 10/01 1625 97.7 75 20 118/60 92 BIPAP 10/01 1542 72 118/68 Intake & Output 10/02 1600 10/02 0800 10/02 0000 10/01 1600 10/01 0800 10/01 0000 Intake Total 530 100 100 550 64 240 Output Total Balance 530 100 100 550 64 240 Intake, IV 50 70 64 Intake, Oral 480 100 100 480 240 Physical Exam: Morbidly obese, elderly female in no acute distress with nasal oxygen in place. Vital signs: See above. HEENT: Normocephalic, atraumatic, EOMI, moist mucous membranes. Neck: No JVD, no bruits. Lungs: Decreased breath sounds bilaterally and occasional rhonchi. Heart: S1, S2 (occasionally irregular). PMI not well felt. Abdomen: Soft, nontender, positive bowel sounds. Extremities: 2-3+ bilateral lower malhotra edema/erythema. Diagnostic Data EKG Results (09/30/2016) sinus rhythm, second-degree atrioventricular block (Mobitz type I), consider left posterior fascicular block, right bundle branch block, consider indeterminate age anteroseptal wall myocardial infarction. No rhythm change and less ectopy when compared to previous tracing (09/10/2016). CXR Results (10/02/2016) Extremely limited exam. Findings are overall suggestive of improvement in lung aeration with resolution of previously seen pulmonary edema and with persistent mild central vascular congestion and persistent nonspecific retrocardiac left lung base opacity (artifact versus consolidation versus effusion). Assessment/Plan Assessment/Plan Elderly female with a history of morbid obesity, former heavy tobacco use, COPD oxygen dependent, suspected obstructive sleep apnea and obesity hypoventilation syndrome, hypertension, dyslipidemia, diabetes mellitus, chronic kidney disease, ventricular ectopy, intermittent second degree atrioventricular block (Mobitz type I), left ventricular hypertrophy, systolic/diastolic dysfunction, and previous biventricular heart failure who presented following a fall from a [employer] lift transfer with complaints of shortness of breath, intermittent cough, orthopnea, edema, etc. Her presentation was consistent with hypercarbic respiratory failure likely on the basis of the obesity hypoventilation syndrome, as well as, a probable component of COPD, heart failure, etc. with CXR evidence of edema and significantly elevated NT-PRO BNP. Suspect that her modest troponin I elevation is not on the basis of an acute coronary syndrome, but rather a result of demand ischemia secondary to acute illness, left ventricular hypertrophy, component of heart failure, pulmonary diseases, etc. Recommendations: * Continue on telemetry, follow-up troponins, follow-up electrocardiogram, strict inputs and outputs, daily weights. * Agree with the recommendation for IV furosemide 80 mg twice daily and reassess the need for further IV diuresis in the morning. If a good diuresis does not ensue would give metolazone 2.5 or 5.0 mg one half hour prior to her next dosage of furosemide. * Follow-up renal function, potassium, magnesium, etc. repeat potassium this evening. * Repeat CXR in a.m. following diuresis. * Continue to follow-up on pulmonary and nephrology recommendations. * Continue to hold angiotensin receptor timi, that she was previously on, for the short-term. * DVT prophylaxis. Further recommendations will follow, Thank you. Consult Acknowledgment - Thank you for your consult request.
[2016-10-02 16:01] VITALS: BP 140/52
[2016-10-02] MEDS ORDERED: DULOXETINE HCL60 MG PO (16:31)
--- NOTE | 2016-10-02 23:45 | NUR ---
CRITICAL LAB VALUE- k+ 6.0. OEI NOTFIED. KAEXALYATE ADMINISTERED ORDERED. REPEAT POTASSIUM AT 0600. WILL CONTINUE TO MONITOR.
[2016-10-02 23:59] VITALS: BP 128/60
[2016-10-03 08:00] VITALS: BP 154/70
--- NOTE | 2016-10-03 08:00 | PN- Housestaff ---
SANDRA GARCÍA,[facility] 10/03/16 0759: Subjective Follow-up For: Acute hypercapnic respiratory failure Acute kidney injury on top of chronic kidney disease Bilateral LE cellulitis Tele-Events Since Last Visit: kathya, HR 55-65 Subjective: Patient is alert and oriented, states she feels terrible, she reprots having trouble breathing, also reports pain in both legs. no overnight events. Review of Systems Constitutional: Denies: chills, fever. EENTM: Reports: no symptoms. Cardiovascular: Reports: edema. Denies: chest pain, palpitations. Respiratory: Reports: short of breath, wheezing. Denies: cough, sputum production. Gastrointestinal: Reports: distention. Denies: diarrhea, nausea, changes in stool, vomiting. Genitourinary: Reports: no symptoms. Musculoskeletal: Reports: no symptoms. Skin: Reports: erythema, lesions. Objective Last 24 Hrs of Vital Signs/I&O Vital Signs Date Time Temp Pulse Resp B/P Pulse O2 O2 Flow FiO2 Ox Delivery Rate 10/03 0907 97.6 62 20 154/70 10/03 0906 97.6 62 20 154/70 10/03 0800 94 Nasal 10L Cannula 10/03 0800 97.6 62 20 154/70 94 Nasal 10L Cannula 10/03 0739 92 Nasal 10L Cannula 10/03 0618 55 95 10/03 0326 61 91 10/03 0027 79 92 10/03 0000 Nasal 10L Cannula 10/02 2359 97.6 89 24 128/60 90 BIPAP 10/02 2234 89 96 10/02 2108 74 132/54 10/02 2108 74 132/54 10/02 1655 97 Nasal 10L Cannula 10/02 1642 72 140/52 Intake & Output 10/03 1600 10/03 0800 10/03 0000 Intake Total 540 270 370 Output Total 450 Balance 90 270 370 Intake, IV 60 150 80 Intake, Oral 480 120 290 Number 0 Bowel Movements Output, Urine 450 Patient 154.221 kg 177.808 kg Weight Physical Exam General Appearance: Alert, Oriented X3, Cooperative, Mild Distress Skin: erythema and pitting edema on BL LE, almost unchanegd since yesterday HEENT: Atraumatic, PERRLA, EOMI, Mucous Membr. moist/pink Neck: Supple, No JVD Cardiovascular: Regular Rate, Normal S1, Normal S2, No Murmurs Lungs: expiratory wheezing bilaterally adn coarse crackles Abdomen: Normal Bowel Sounds, No Tenderness, distended, obese Neurological: Normal Speech, Normal Tone, Sensation Intact, Cranial Nerves 3-12 NL Extremities: No Clubbing, No Cyanosis, Normal Pulses, swelling and erythema on B /L lower legs Vascular: Normal Pulses, Pulses Symmetrical Current Medications: Current Medications Sig/Thanh Start time Last Medication Dose Route Stop Time Status Admin Acetaminophen 650 MG Q8P PRN 09/30 1500 AC PO Albuterol Sulfate 3 ML BID 10/03 2200 AC INH Albuterol Sulfate 3 ML EVERY 4 HRS/AWAKE 10/01 0800 DC 10/03 INH 0737 Aspirin 81 MG DAILY 09/30 1234 AC 10/03 PO 0909 Atorvastatin Calcium 80 MG 1700 09/30 1700 AC 10/02 PO 1642 Cephalexin 250 MG Q24 10/04 1000 AC PO Clindamycin 600 MG IQ8 09/30 1600 DC 10/03 Dextrose/Water 50 ML IV 0824 Duloxetine HCl 60 MG DAILY 10/02 1632 AC 10/03 PO 0906 Famotidine 20 MG DAILY 09/30 1235 AC 10/03 PO 0906 Furosemide 80 MG 0730,1630 10/04 0730 AC IV Furosemide 80 MG ONE ONE 10/03 1930 AC IV 10/03 1931 Furosemide 80 MG 1000,1600 10/03 1000 DC 10/03 IV 1329 Heparin Sodium 5,000 UNIT Q8 09/30 2200 AC 10/03 (Porcine) SC 1418 Hydralazine HCl 25 MG TID 09/30 1235 AC 10/03 PO 0907 Insulin Aspart 0 TIDAC 09/30 1700 AC 10/03 SC 1209 Insulin Detemir 45 UNITS BID 09/30 2200 AC 10/03 SC 1047 Methylprednisolone 40 MG Q12 09/30 2200 DC 10/03 IV 0909 Metoclopramide HCl 2.5 MG ONCE ONE 10/03 1115 CAN PO 10/03 1116 Metolazone 7.5 MG ONCE ONE 10/03 1205 DC 10/03 PO 10/03 1206 1251 Metolazone 2.5 MG ONCE ONE 10/03 1130 DC 10/03 PO 10/03 1131 1251 Metoprolol Tartrate 6.25 MG BID 09/30 1235 AC 10/03 PO 0906 Oxycodone/ 1 TAB Q6P PRN 10/02 0845 AC 10/03 Acetaminophen PO 1428 Prednisone 60 MG DAILY 10/04 1000 AC PO Prednisone 60 MG DAILY 10/03 1000 DC PO Sodium Polystyrene 60 ML ONCE ONE 10/03 1345 DC 10/03 Sulfonate PO 10/03 1346 1421 Sodium Polystyrene 60 ML ONCE ONE 10/02 2330 DC 10/03 Sulfonate PO 10/02 2331 0007 Sodium Polystyrene 60 ML ONCE ONE 10/02 1630 DC 10/02 Sulfonate PO 10/02 1631 1642 Tramadol HCl 50 MG Q12P PRN 09/30 1500 AC 10/02 PO 0909 Last 24 Hrs of Lab/Chris Results Last 24 Hrs of Labs/Mics: Laboratory Tests 10/03/16 1315: Urine Osmolality 358, Ur Random Creatinine 118.2, Ur Random Sodium 15 L, Ur Random Potassium 43.8, Fraction Sodium Excret 0.3 10/03/16 0605: Anion Gap 9, Estimated GFR 16 L, BUN/Creatinine Ratio 24.8, CBC w Diff NO MAN DIFF REQ, RBC 3.63 L, MCV 96.6, MCH 31.5 H, RDW 15.3 H, MPV 8.4, Gran % 85.6 H, Lymphocytes % 6.3 L, Monocytes % 7.7, Eosinophils % 0, Basophils % 0.4, Absolute Granulocytes 6.2, Absolute Lymphocytes 0.5 L, Absolute Monocytes 0.6, Absolute Eosinophils 0, Absolute Basophils 0, PUBS MCHC 32.6 L 10/02/16 2040: Plasma Potassium 6.0 *H Microbiology 10/03 1315 URINE ROUT: Urine Culture - RECD Assessment/Plan Assessment: Patient is 76 year old female with multiple co-morbidities including CHF, b/l lower extremity edema, HTN, HLD, questionable COPD, obesity hypoventilation syndrome, acid reflux, CKD was brought from [facility] after a fall. Recent history of nasal congestion with productive cough of yellowish sputum, worsened bilateral lower extremity edema and redness. Patient is recently discharged from [facility] on 09/15/15 after being treated for b/l lower extremity edema diastolic congestive heart failure with ejection fraction greater than 60%(September 2015) Problem list #Acute hypercapnic respiratory failure #Congestive heart failure with preserved ejection fraction #Bilateral lower extremity cellulitis #Hypertension and hyperlipidemia #Diabetes mellitus #bilateral posterior thigh stage III pressure ulcer #Acute hypercapnic respiratory failure -Patient has history of obesity hypoventilation syndrome with mostly underlying sleep apnea -On admission ABG was pH 7.23, PCO2 74, PaO2 70, bicarbonate 30 -Pulmonology consultation was obtained -DisContinued Solu-Medrol, started on prednisone taper -Continue BiPAP nocturnal -TRC with nebulizer -We contacted the rehabilitation facility regarding BiPAP, the nurse reported that the patient never used the BiPAP that was prescribed on last discharge from the hospital because she never had it and no sleep study was done for her #Congestive heart failure with preserved ejection fraction -Patient has history of diastolic CHF, recent echo September 2015 shows ejection fraction more than 60% Increased lasix to 80 mg BID IV, will receive 10 mg of metolazone 30 min before morning dose of lasix (cardiology and nephrology on board) #DANYELLE on CKD -Creatinine level elevated to 2.9 from 2.5 from yesterday. -per Dr. Amador patient has a hx of proteinuria (he follows up with Dr. Maddox) -patient also has CHF exacerbation and it may have caused prerenal azotemia, that is why diuresis will thought to help the pt despite the elevation in cr -sent urine lytes, urine Pr/creatinine ratio, will follow results -I/O measurement, patient is incontinent, patient agreed that we put a baird catheter in, was concerned about infection induced by the baird, explained to her the pros and cons and that it will be temporary. #Hyperkalemia received kayexalate, recheck K tomorrow and give Kayexalate if necessary #Bilateral lower extremity cellulitis -Patient has history of bilateral lower extremity edema -She reported worsening of the pre-existing redness -The erythema is subsiding -Changed IV clindamycin to PO Keflex - dose was adjusted for creatinine clearance, (Patient has allergy to penicillin but in form of a rash) #Hypertension and hyperlipidemia -Continue metoprolol 6.25 mg twice a day -Continue hydralazine 25 mg 3 times a day -Continue atorvastatin 80 mg daily -Continue aspirin 81 mg daily #Diabetes mellitus -Continue levemir 45 units twice a day -NovoLog sliding scale before meals -Continue accu check #bilateral posterior thigh stage III pressure ulcer -Wound care consultation was obtained -Daily wound cleansing and cover with moist wound care using Xeroform -Recommendation for mobilization to decrease the pressure to these areas -PT evaluation and treat -Diet diabetic consistent c 3 -DVT prophylaxis heparin subcutaneous -Code DNR/DNI -consultation Cardio, Pulm, nephrology, PT Problem List: 1. Hypercapnic respiratory failure 2. CHF (congestive heart failure) 3. Diabetes mellitus type 2 4. Dyslipidemia 5. Cellulitis Pain Ratin Pain Location: legs Pain Goal: Pain 4 or less Pain Plan: tylenol for mild, percocet for moderate to severe Tomorrow's Labs & Rationales: CBC (anemia) BEP (hyperkalemia, elevated Cr) HEYDI SOLORZANO MD 10/03/16 2136: Attending MD Review Statement Attending Statement Attending MD Statement: examined this patient, discuss w/resident/PA/DIVISION FIELD INSPECTOR, agreed w/resident/PA/DIVISION FIELD INSPECTOR, reviewed EMR data (avail), discussed with nursing, discussed with case mgmt, amended to note Attending Assessment/Plan: The patient was seen and discussed with house staff. Appreciate Nephrology, Pulmonary, and Cardiology input. Will Rx with Furosemide/Metolazone and follow BUN/Cr.
--- NOTE | 2016-10-03 08:14 | PN- Pulmonary ---
ANDRES MAN 10/03/16 0814: Subjective HPI/Critical Care Issues: 76 y/o female with a history of morbid obesity, former heavy tobacco use, COPD oxygen dependent, suspected obstructive sleep apnea and obesity hypoventilation syndrome, hypertension, dyslipidemia, diabetes mellitus, chronic kidney disease, ventricular ectopy, intermittent second degree atrioventricular block (Mobitz type I), left ventricular hypertrophy, systolic/diastolic dysfunction, and previous biventricular heart failure with Left ventricular ejection fraction is estimated at 50 %, presented with shortness of breath and found to be in hyper capnic hypoxic respiratory failure. Update Patient visited and examined this morning.she is complaining of dyspnea, using short sentences for communication. Denies any chest pain, palpitation, nausea vomiting diarrhea, abdominal pain. On nocturnal BiPAP and O2 supplements nasal cannula 10 L. Vital signs is stable hemodynamically stable Objective Current Medications: Current Medications Sig/Thanh Start time Last Medication Dose Route Stop Time Status Admin Acetaminophen 650 MG Q8P PRN 09/30 1500 AC PO Albuterol Sulfate 3 ML EVERY 4 HRS/AWAKE 10/01 0800 AC 10/03 INH 0737 Aspirin 81 MG DAILY 09/30 1234 AC 10/02 PO 0906 Atorvastatin Calcium 80 MG 1700 09/30 1700 AC 10/02 PO 1642 Clindamycin 600 MG IQ8 09/30 1600 AC 10/03 Dextrose/Water 50 ML IV 0824 Duloxetine HCl 60 MG DAILY 10/02 1632 AC 10/02 PO 2108 Famotidine 20 MG DAILY 09/30 1235 10/02 PO 0906 Furosemide 80 MG 1000,1600 10/03 1000 AC IV Furosemide 80 MG 7:30 AM, & 4:30 PM 10/03 0730 DC IV Furosemide 60 MG 7:30 AM, & 4:30 PM 10/02 1630 DC IV Furosemide 80 MG ONCE ONE 10/02 1445 DC 10/02 IV 10/02 1446 1517 Heparin Sodium 5,000 UNIT Q8 09/30 2200 AC 10/03 (Porcine) SC 0501 Hydralazine HCl 25 MG TID 09/30 1235 AC 10/02 PO 2108 Insulin Aspart 0 TIDAC 09/30 1700 AC 10/02 SC 1850 Insulin Detemir 45 UNITS BID 09/30 2200 AC 10/02 SC 2108 Methylprednisolone 40 MG Q12 09/30 2200 AC 10/02 IV 2111 Metoprolol Tartrate 6.25 MG BID 09/30 1235 AC 10/02 PO 2108 Oxycodone/ 1 TAB Q6P PRN 10/02 0845 AC 10/03 Acetaminophen PO 0503 Patient Medication 1 ED .STK-MED ONE 10/02 1345 DC Teaching ED 10/02 1346 Sodium Polystyrene 60 ML ONCE ONE 10/02 2330 DC 10/03 Sulfonate PO 10/02 2331 0007 Sodium Polystyrene 60 ML ONCE ONE 10/02 1630 DC 10/02 Sulfonate PO 10/02 1631 1642 Tramadol HCl 50 MG Q12P PRN 09/30 1500 AC 10/02 PO 0909 Vital Signs & I&O Last 24 Hrs of Vitals and I&O: Vital Signs Date Time Temp Pulse Resp B/P Pulse O2 O2 Flow FiO2 Ox Delivery Rate 10/03 0739 92 Nasal 10L Cannula 10/03 0618 55 95 10/03 0326 61 91 10/03 0027 79 92 10/03 0000 Nasal 10L Cannula 10/02 2359 97.6 89 24 128/60 90 BIPAP 10/02 2234 89 96 10/02 2108 74 132/54 10/02 2108 74 132/54 10/02 1655 97 Nasal 10L Cannula 10/02 1642 72 140/52 10/02 1601 98.3 72 20 140/52 94 10/02 1600 97 Nasal 10L Cannula 10/02 1118 61 92 10/02 0906 69 134/66 10/02 0906 69 134/66 10/02 0844 95 Nasal 10L Cannula Intake & Output 10/03 1600 10/03 0800 10/03 0000 Intake Total 270 370 Output Total Balance 270 370 Intake, IV 150 80 Intake, Oral 120 290 Patient 392 lb Weight Exam General Appearance: alert, awake, anxious, moderate distress, obese Head: atraumatic, normal appearance Ears, Nose, Throat: normal pharynx, normal ENT inspection Neck: normal inspection, no JVD Respiratory: decreased breath sounds, crackles, respiratory distress, bibasilar crackles Cardiovascular: edema Abdomen: soft, non-tender Back: was not examined Extremities: pedal edema, 3-4+ bilateral pedal pitting edema mid thigh Skin: erythema and redness of bilateral lower extremity; cellulitis Impression/Plan Impression/Plan Impression/Plan: List of problems 1) acute on chronic hypercapnic hypoxic respiratory failure, in the setting of MIKI and COPD with Her presentation was consistent with component of heart failure, elevated pro- BNP + with CXR evidence of edema+ massive anasarca. * Continue nocturnal BiPAP and urine no O2 supplementation targets O2 saturation above 90-92% * Stop IV Solu-Medrol * Start by mouth prednisone 60 mg daily * Agree with cardiology and nephrology regarding plan for diuresis; please consider adding metolazone 2.5 mg 30 minutes before IV Lasix * Obtain chest x-ray today * Incontinence-daily weights as a monitor of effective diuresis; today: weights 392 pounds * Check creatinine and electrolytes for renal functio * Possibility of obstructive sleep apnea, needs sleep study as an outpatient 2) Suspected ACS mostly due to demand ischemia, per medical team. 3)IDDM, managed per medical team 4) CKD stage III-IV, 2/2 Diabetic nephropathy and probable chronic NSAID use. * Avoid nephrotoxic medications including NSAIDs * manage per nephrology and medical team 5) Cellulitis; decreasing area of redness; agree with antibiotic treatment per medical team 6) anxiety and depression; improved, as per medical team Problem List: 1. Hypercapnic respiratory failure 2. CHF (congestive heart failure) 3. CHF (congestive heart failure) 4. Systolic dysfunction 5. Diabetes mellitus type 2 6. Dyslipidemia TIMO GARCÍA,SARINA 10/03/16 1031: Impression/Plan Impression/Plan Recommendations: Impression 76 year old woman with dm, obesity and diastolic chf. Likely underlying miki/ohs. Here with acute hypercarbic respiratory failure. DANYELLE likely secondary to prerenal azotemia. Lower extremity wounds. Plan -Nocturnal BiPAP -stop solumedrol -prednisone po start with 60 mg -diuresis, repeat cxr, monitor i/o, pt declines baird -possible obesity hypoventilation syndrome and likely underlying sleep apnea, if feasible would be useful to check his an outpatient sleep study -No even fluid balance -Monitor creatinine closely and ins and outs creatinine continues to worsen nephrology consultation may be useful -trc/nebs -Antibiotics per primary team for lower extremity wounds -DVT prophylaxis at all times
[2016-10-03 08:24] LABS: ABSOLUTE BASOPHIL COUNT 0 /CUMM (0.0-0.2); ABSOLUTE EOSINOPHIL COUNT 0 /CUMM (0.0-0.7); ABSOLUTE GRANULOCYTE CT 6.2 /CUMM (1.4-6.5); ABSOLUTE LYMPH COUNT 0.5 /CUMM (1.2-3.4); ABSOLUTE MONOCYTE COUNT 0.6 /CUMM (0.10-0.60); BASOPHIL % 0.4 % (0.0-2.0); EOSINOPHIL % 0 % (0-5); MEAN CORPUSCULAR HGB 31.5 PG (27.0-31.0); MEAN CORPUSCULAR HGB CONC 32.6 G/DL (33.0-37.0); MEAN CORPUSCULAR VOLUME 96.6 FL (81.0-99.0); MEAN PLATELET VOLUME 8.4 FL (7.4-10.4); PLATELET COUNT 197 /CUMM (130-400); RBC DISTRIBUTION WIDTH 15.3 % (11.5-14.5); RED BLOOD CELL CT 3.63 /CUMM (4.20-5.40); WHITE BLOOD CELL COUNT 7.3 /CUMM (4.8-10.8)
[2016-10-03 09:25] LABS: GRANULOCYTE % 85.6 % (42.2-75.2)
--- NOTE | 2016-10-03 09:29 | RADIOLOGY REPORT ---
EXAMINATION: XR PORTABLE CHEST CLINICAL INFORMATION: Shortness of breath. Presumptive diagnosis of CHF. COMPARISON: Several prior chest x-rays, most recent of which is dated 10/02/2016. TECHNIQUE: AP semierect portable view of the chest was obtained. FINDINGS: Cardiac mediastinal silhouette is enlarged, unchanged. Low lung volumes are seen. Compared to the prior exam, there has been redevelopment of diffuse pulmonary perihilar opacities with vascular enlargement and indistinctness and bilateral lower lung hazy opacities, suspicious for congestive heart failure with small bilateral pleural effusions. Associated bibasilar subsegmental atelectasis or consolidation is likely present. No pneumothorax is seen. Bony structures are grossly unremarkable. IMPRESSION: Findings are consistent with congestive heart failure with bilateral pleural effusions and associated bibasilar airspace opacities, likely atelectasis.
--- NOTE | 2016-10-03 11:58 | PN- Nephrology ---
Assessment/Plan Assessment: 1. Acute worsening of her kidney injury. 2. Hypertension next number diabetes mellitus he's had diabetes for what sounds like greater than 40 years 3. 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 The other issue would be whether or not this was FSGS related to obesity. It may be helpful to obtain a serum immunoelectrophoresis and exclude the possibility of a paraproteinemia. I could not find that that has been done. 4. Hyperkalemia. No need for Kayexalate. Her diet needs to be a 2 g sodium diet 5. Volume overload -favor increasing the metolazone to 10 mg a day. And giving furosemide 80 mg twice a day. Regardless of what the serum creatinine is at this point. She reports that she is voiding only when she coughs. I'm told that she had refused a Mg placement overnight. Although yesterday I was not in favor of a Mg, today I think it important to monitor closely her urine output in response to diuretics. Suggestion: 1. Limit sodium to 2 g per day 2. Increase the Metolazone to 10 mg per day for the next 3 days 3. furosemide 80 mg IV twice a day with a view to increasing 200 mg twice a day 4. Suggest placing Mg Subjective Subjective: Patient feels no different. She reports passing urine only when she coughs. Was told she had refused a Mg overnight. Yesterday was not in favor 1 however I think today she may benefit. Objective Vital Signs and I&Os Vital Signs Date Time Temp Pulse Resp B/P Pulse O2 O2 Flow FiO2 Ox Delivery Rate 10/03 0907 97.6 62 20 154/70 10/03 0906 97.6 62 20 154/70 10/03 0800 94 Nasal 10L Cannula 10/03 0800 97.6 62 20 154/70 94 Nasal 10L Cannula 10/03 0739 92 Nasal 10L Cannula 10/03 0618 55 95 10/03 0326 61 91 10/03 0027 79 92 10/03 0000 Nasal 10L Cannula 10/02 2359 97.6 89 24 128/60 90 BIPAP 10/02 2234 89 96 10/02 210 74 132/54 10/02 210 74 132/54 10/02 1655 97 Nasal 10L Cannula 10/02 1642 72 140/52 01/19 1601 98.3 72 20 140/52 94 10/02 1600 97 Nasal 10L Cannula Intake & Output 10/03 1600 10/03 0400 10/02 1600 10/02 0400 10/01 1600 10/01 0400 Intake Total 270 370 630 100 614 240 Output Total Balance 270 370 630 100 614 240 Intake, IV 150 80 50 134 Intake, Oral 120 290 580 100 480 240 Patient 392 lb Weight Physical Exam: General Appearance: well developed/nourished, no apparent distress, alert, anxious Head: atraumatic, normal appearance, ecchymosis (left cheek) Eyes:Bilateral: PERRL, EOMI, pale conjunctivae. Neck: cannot assess JVD because of body habitus Respiratory: decreased breath sounds Cardiovascular: regular rate/rhythm, edema, gallop Gastrointestinal: normal bowel sounds, soft, non-tender Extremities: she has edema up to her lower chest Neurologic/Psych: no motor/sensory deficits, awake, alert, oriented x 3 Skin: intact, normal color, warm/dry Lymphatic: no cervical or supraclavicular lymphadenopathy Current Medications: Current Medications Sig/Thanh Start time Last Medication Dose Route Stop Time Status Admin Acetaminophen 650 MG Q8P PRN 09/30 1500 AC PO Albuterol Sulfate 3 ML BID 10/03 2200 AC INH Albuterol Sulfate 3 ML EVERY 4 HRS/AWAKE 10/01 0800 DC 10/03 INH 0737 Aspirin 81 MG DAILY 09/30 1234 AC 10/03 PO 0909 Atorvastatin Calcium 80 MG 1700 09/30 1700 AC 10/02 PO 1642 Clindamycin 600 MG IQ8 09/30 1600 AC 10/03 Dextrose/Water 50 ML IV 0824 Duloxetine HCl 60 MG DAILY 10/02 1632 AC 10/03 PO 0906 Famotidine 20 MG DAILY 09/30 1235 AC 10/03 PO 0906 Furosemide 80 MG 1000,1600 10/03 1000 AC IV Furosemide 80 MG 7:30 AM, & 4:30 PM 10/03 0730 DC IV Furosemide 60 MG 7:30 AM, & 4:30 PM 10/02 1630 DC IV Furosemide 80 MG ONCE ONE 10/02 1445 DC 10/02 IV 10/02 1446 1517 Heparin Sodium 5,000 UNIT Q8 09/30 2200 AC 10/03 (Porcine) SC 0501 Hydralazine HCl 25 MG TID 09/30 1235 AC 10/03 PO 0907 Insulin Aspart 0 TIDAC 09/30 1700 AC 10/02 SC 1850 Insulin Detemir 45 UNITS BID 09/30 2200 AC 10/03 SC 1047 Methylprednisolone 40 MG Q12 09/30 2200 DC 10/03 IV 0909 Metoclopramide HCl 2.5 MG ONCE ONE 10/03 1115 CAN PO 10/03 1116 Metolazone 2.5 MG ONCE ONE 10/03 1130 DC PO 10/03 1131 Metoprolol Tartrate 6.25 MG BID 09/30 1235 AC 10/03 PO 0906 Oxycodone/ 1 TAB Q6P PRN 10/02 0845 AC 10/03 Acetaminophen PO 0503 Patient Medication 1 ED .STK-MED ONE 10/02 1345 DC Teaching ED 10/02 1346 Prednisone 60 MG DAILY 10/04 1000 AC PO Prednisone 60 MG DAILY 10/03 1000 DC PO Sodium Polystyrene 60 ML ONCE ONE 10/02 2330 DC 10/03 Sulfonate PO 10/02 2331 0007 Sodium Polystyrene 60 ML ONCE ONE 10/02 1630 DC 10/02 Sulfonate PO 10/02 1631 1642 Tramadol HCl 50 MG Q12P PRN 09/30 1500 AC 10/02 PO 0909 Results Pertinent Lab Results: Laboratory Tests 10/03 10/02 10/02 0605 2040 1434 Chemistry Sodium (137 - 145 mmol/L) 138 Potassium (3.5 - 5.1 mmol/L) 5.5 H Plasma Potassium (3.4 - 4.4 MMOL/L) 6.0 *H Chloride (98 - 107 mmol/L) 96 L Carbon Dioxide (22 - 30 mmol/L) 33 H Anion Gap (5 - 16) 9 BUN (7 - 17 mg/dL) 72 H Creatinine (0.5 - 1.0 mg/dL) 2.9 H Estimated GFR (>60 ml/min) 16 L BUN/Creatinine Ratio (7 - 25 %) 24.8 Hematology CBC w Diff NO MAN DIFF REQ WBC (4.8 - 10.8 /CUMM) 7.3 RBC (4.20 - 5.40 /CUMM) 3.63 L Hgb (12.0 - 16.0 G/DL) 11.4 L Hct (37 - 47 %) 35.0 L MCV (81.0 - 99.0 FL) 96.6 MCH (27.0 - 31.0 PG) 31.5 H RDW (11.5 - 14.5 %) 15.3 H Plt Count (130 - 400 /CUMM) 197 MPV (7.4 - 10.4 FL) 8.4 Gran % (42.2 - 75.2 %) 85.6 H Lymphocytes % (20.5 - 51.1 %) 6.3 L Monocytes % (1.7 - 9.3 %) 7.7 Eosinophils % (0 - 5 %) 0 Basophils % (0.0 - 2.0 %) 0.4 Absolute Granulocytes (1.4 - 6.5 /CUMM) 6.2 Absolute Lymphocytes (1.2 - 3.4 /CUMM) 0.5 L Absolute Monocytes (0.10 - 0.60 /CUMM) 0.6 Absolute Eosinophils (0.0 - 0.7 /CUMM) 0 Absolute Basophils (0.0 - 0.2 /CUMM) 0 PUBS MCHC (33.0 - 37.0 G/DL) 32.6 L Urines Ur Random Creatinine Cancelled U Random Total Protein Cancelled 10/02 10/02 10/01 0915 0645 1450 Chemistry Sodium (137 - 145 mmol/L) 136 L Potassium (3.5 - 5.1 mmol/L) 5.8 H Chloride (98 - 107 mmol/L) 97 L Carbon Dioxide (22 - 30 mmol/L) 30 Anion Gap (5 - 16) 9 BUN (7 - 17 mg/dL) 65 H Creatinine (0.5 - 1.0 mg/dL) 2.5 H Estimated GFR (>60 ml/min) 19 L BUN/Creatinine Ratio (7 - 25 %) 26.0 H Hematology CBC w Diff NO MAN DIFF REQ WBC (4.8 - 10.8 /CUMM) 6.3 RBC (4.20 - 5.40 /CUMM) 3.72 L Hgb (12.0 - 16.0 G/DL) 11.8 L Hct (37 - 47 %) 35.7 L MCV (81.0 - 99.0 FL) 96.0 MCH (27.0 - 31.0 PG) 31.7 H RDW (11.5 - 14.5 %) 15.7 H Plt Count (130 - 400 /CUMM) 184 MPV (7.4 - 10.4 FL) 8.9 Gran % (42.2 - 75.2 %) 85.1 H Lymphocytes % (20.5 - 51.1 %) 9.8 L Monocytes % (1.7 - 9.3 %) 4.6 Eosinophils % (0 - 5 %) 0 Basophils % (0.0 - 2.0 %) 0.5 Absolute Granulocytes (1.4 - 6.5 /CUMM) 5.4 Absolute Lymphocytes (1.2 - 3.4 /CUMM) 0.6 L Absolute Monocytes (0.10 - 0.60 /CUMM) 0.3 Absolute Eosinophils (0.0 - 0.7 /CUMM) 0 Absolute Basophils (0.0 - 0.2 /CUMM) 0 PUBS MCHC (33.0 - 37.0 G/DL) 33.0 Urines Urine Color Cancelled Urine Clarity Cancelled Urine pH Cancelled Ur Specific [place] Cancelled Urine Protein Cancelled Urine Ketones Cancelled Urine Nitrite Cancelled Urine Bilirubin Cancelled Urine Urobilinogen Cancelled Ur Leukocyte Esterase Cancelled Ur Microscopic Cancelled Urine Hemoglobin Cancelled Urine Glucose Cancelled 10/01 10/01 0845 0620 Blood Gas pH (7.35 - 7.45 PH) 7.36 pCO2 (35 - 45 TORR) 52 H pO2 (80 - 100 TORR) 70 L HCO3 (21 - 28 MEQ/L) 29 H ABG O2 Sat (Measured) (>96.0 %) 93.0 L Carboxyhemoglobin (1.5 - 5.0 %) 0.2 L O2 Concentration % 45% Respiration Rate (BPM) 24 O2 Delivery Method VISION Vent Mode ST Expiratory Pressure (CM H2O P) 6 Inspiratory Pressure (CM H2O P) 24 Chemistry Sodium (137 - 145 mmol/L) 138 Potassium (3.5 - 5.1 mmol/L) 5.4 H Chloride (98 - 107 mmol/L) 99 Carbon Dioxide (22 - 30 mmol/L) 34 H Anion Gap (5 - 16) 5 BUN (7 - 17 mg/dL) 46 H Creatinine (0.5 - 1.0 mg/dL) 1.9 H Estimated GFR (>60 ml/min) 26 L BUN/Creatinine Ratio (7 - 25 %) 24.2 Hematology CBC w Diff NO MAN DIFF REQ WBC (4.8 - 10.8 /CUMM) 7.1 RBC (4.20 - 5.40 /CUMM) 3.68 L Hgb (12.0 - 16.0 G/DL) 11.6 L Hct (37 - 47 %) 35.2 L MCV (81.0 - 99.0 FL) 95.7 MCH (27.0 - 31.0 PG) 31.5 H RDW (11.5 - 14.5 %) 15.4 H Plt Count (130 - 400 /CUMM) 182 MPV (7.4 - 10.4 FL) 8.5 Gran % (42.2 - 75.2 %) 94.7 H Lymphocytes % (20.5 - 51.1 %) 5.0 L Monocytes % (1.7 - 9.3 %) 0.3 L Eosinophils % (0 - 5 %) 0 Basophils % (0.0 - 2.0 %) 0 L Absolute Granulocytes (1.4 - 6.5 /CUMM) 6.7 H Absolute Lymphocytes (1.2 - 3.4 /CUMM) 0.4 L Absolute Monocytes (0.10 - 0.60 /CUMM) 0 L Absolute Eosinophils (0.0 - 0.7 /CUMM) 0 Absolute Basophils (0.0 - 0.2 /CUMM) 0 PUBS MCHC (33.0 - 37.0 G/DL) 33.0 Miscellaneous Phlebotomy Draw Site LEFT RADIAL 09/30 09/30 09/30 1555 1330 1304 Blood Gas pH (7.35 - 7.45 PH) 7.30 *L pCO2 (35 - 45 TORR) 62 *H pO2 (80 - 100 TORR) 70 L HCO3 (21 - 28 MEQ/L) 30 H ABG O2 Sat (Measured) (>96.0 %) 94.0 L P-50 (Temp Corrected) YES Carboxyhemoglobin (1.5 - 5.0 %) 1.1 L O2 Concentration % 40% Temperature (97.0 - 100.0 FARH) 97.0 Respiration Rate (BPM) 24 O2 Delivery Method BIPAP Vent Mode ST Expiratory Pressure (CM H2O P) 6 Inspiratory Pressure (CM H2O P) 24 Chemistry Lactic Acid (0.7 - 2.1 mmol/L) Cancelled 0.7 Miscellaneous Phlebotomy Draw Site RIGHT RADIAL
[2016-10-03 18:00] VITALS: BP 148/58
--- NOTE | 2016-10-03 18:30 | PN- Cardiology ---
Subjective Subjective: Somnolent and moaning. Sinus rhythm on telemetry at present, but continues to have intermittent second- degree atrioventricular block, Mobitz type I. Objective Vital Signs and I&Os Vital Signs Date Time Temp Pulse Resp B/P Pulse O2 O2 Flow FiO2 Ox Delivery Rate 10/03 1800 97.4 82 22 148/58 92 Nasal 10L Cannula 10/03 0907 97.6 62 20 154/70 10/03 0906 97.6 62 20 154/70 10/03 0800 94 Nasal 10L Cannula 10/03 0800 97.6 62 20 154/70 94 Nasal 10L Cannula 10/03 0739 92 Nasal 10L Cannula 10/03 0618 55 95 10/03 0326 61 91 10/03 0027 79 92 10/03 0000 Nasal 10L Cannula 10/02 2359 97.6 89 24 128/60 90 BIPAP 10/02 2234 89 96 10/02 2108 74 132/54 10/02 2108 74 132/54 Intake & Output 10/03 1600 10/03 0800 10/03 0000 10/02 1600 10/02 0800 10/02 0000 Intake Total 540 270 370 530 100 100 Output Total 450 Balance 90 270 370 530 100 100 Intake, IV 60 150 80 50 Intake, Oral 480 120 290 480 100 100 Number 0 Bowel Movements Output, Urine 450 Patient 340 lb 392 lb Weight Physical Exam: Physical Exam: Morbidly obese, elderly female in no acute distress with nasal oxygen in place. Vital signs: See above. HEENT: Normocephalic, atraumatic, EOMI, moist mucous membranes. Neck: No JVD, no bruits. Lungs: Decreased breath sounds bilaterally and occasional rhonchi. Heart: S1, S2 (occasionally irregular). PMI not well felt. Abdomen: Soft, nontender, positive bowel sounds. Extremities: 2-3+ bilateral lower malhotra edema/erythema. Current Medications: Current Medications Sig/Thanh Start time Last Medication Dose Route Stop Time Status Admin Acetaminophen 650 MG Q8P PRN 09/30 1500 AC PO Albuterol Sulfate 3 ML BID 10/03 2200 AC INH Albuterol Sulfate 3 ML EVERY 4 HRS/AWAKE 10/01 0800 DC 10/03 INH 0737 Aspirin 81 MG DAILY 09/30 1234 AC 10/03 PO 0909 Atorvastatin Calcium 80 MG 1700 09/30 1700 AC 01/19 PO 1642 Cephalexin 250 MG Q24 10/04 1000 AC PO Clindamycin 600 MG IQ8 09/30 1600 DC 10/03 Dextrose/Water 50 ML IV 0824 Duloxetine HCl 60 MG DAILY 10/02 1632 AC 10/03 PO 0906 Famotidine 20 MG DAILY 09/30 1235 AC 10/03 PO 0906 Furosemide 80 MG 0730,1630 10/04 0730 AC IV Furosemide 80 MG ONE ONE 10/03 1930 AC IV 10/03 1931 Furosemide 80 MG 1000,1600 10/03 1000 DC 10/03 IV 1329 Heparin Sodium 5,000 UNIT Q8 09/30 2200 AC 10/03 (Porcine) SC 1418 Hydralazine HCl 25 MG TID 09/30 1235 AC 10/03 PO 0907 Insulin Aspart 0 TIDAC 09/30 1700 AC 10/03 SC 1757 Insulin Detemir 45 UNITS BID 09/30 2200 AC 10/03 SC 1047 Methylprednisolone 40 MG Q12 09/30 2200 DC 10/03 IV 0909 Metoclopramide HCl 2.5 MG ONCE ONE 10/03 1115 CAN PO 10/03 1116 Metolazone 7.5 MG ONCE ONE 10/03 1205 DC 10/03 PO 10/03 1206 1251 Metolazone 2.5 MG ONCE ONE 10/03 1130 DC 10/03 PO 10/03 1131 1251 Metoprolol Tartrate 6.25 MG BID 09/30 1235 AC 10/03 PO 0906 Oxycodone/ 1 TAB Q6P PRN 10/02 0845 10/03 Acetaminophen PO 1428 Prednisone 60 MG DAILY 10/04 1000 AC PO Prednisone 60 MG DAILY 10/03 1000 DC PO Sodium Polystyrene 60 ML ONCE ONE 10/03 1345 DC 10/03 Sulfonate PO 10/03 1346 1421 Sodium Polystyrene 60 ML ONCE ONE 10/02 2330 DC 10/03 Sulfonate PO 10/02 2331 0007 Tramadol HCl 50 MG Q12P PRN 09/30 1500 AC 10/02 PO 0909 Results Last 48 Hrs of Labs/Mics: Laboratory Tests 10/03/16 1315: Urine Osmolality 358, Ur Random Creatinine 118.2, Ur Random Sodium 15 L, Ur Random Potassium 43.8, Fraction Sodium Excret 0.3 10/03/16 0605: Anion Gap 9, Estimated GFR 16 L, BUN/Creatinine Ratio 24.8, CBC w Diff NO MAN DIFF REQ, RBC 3.63 L, MCV 96.6, MCH 31.5 H, RDW 15.3 H, MPV 8.4, Gran % 85.6 H, Lymphocytes % 6.3 L, Monocytes % 7.7, Eosinophils % 0, Basophils % 0.4, Absolute Granulocytes 6.2, Absolute Lymphocytes 0.5 L, Absolute Monocytes 0.6, Absolute Eosinophils 0, Absolute Basophils 0, PUBS MCHC 32.6 L 10/02/16 2040: Plasma Potassium 6.0 *H 10/02/16 1434: Ur Random Creatinine Cancelled, U Random Total Protein Cancelled 10/02/16 0915: Anion Gap 9, Estimated GFR 19 L, BUN/Creatinine Ratio 26.0 H 10/02/16 0645: CBC w Diff NO MAN DIFF REQ, RBC 3.72 L, MCV 96.0, MCH 31.7 H, RDW 15.7 H, MPV 8.9, Gran % 85.1 H, Lymphocytes % 9.8 L, Monocytes % 4.6, Eosinophils % 0, Basophils % 0.5, Absolute Granulocytes 5.4, Absolute Lymphocytes 0.6 L, Absolute Monocytes 0.3, Absolute Eosinophils 0, Absolute Basophils 0, PUBS MCHC 33.0 Recent Imaging Studies: CXR (10/03/2016) Findings are consistent with congestive heart failure with bilateral pleural effusions and associated bibasilar airspace opacities, likely atelectasis. Assessment/Plan Assessment/Plan Elderly female with a history of morbid obesity, former heavy tobacco use, COPD oxygen dependent, suspected obstructive sleep apnea and obesity hypoventilation syndrome, hypertension, dyslipidemia, diabetes mellitus, chronic kidney disease, ventricular ectopy, intermittent second degree atrioventricular block (Mobitz type I), left ventricular hypertrophy, systolic/diastolic dysfunction, and previous biventricular heart failure who presented following a fall from a [place] lift transfer with complaints of shortness of breath, intermittent cough, orthopnea, edema, etc. Her presentation was consistent with hypercarbic respiratory failure, likely on the basis of the obesity hypoventilation syndrome, as well as, a probable component of COPD, heart failure, etc. with CXR evidence of edema and significantly elevated NT-PRO BNP. Suspect that her modest troponin I elevation is not on the basis of an acute coronary syndrome, but rather a result of demand ischemia secondary to acute illness, left ventricular hypertrophy, component of heart failure, pulmonary diseases, etc. Recommendations: * Continue on telemetry, follow-up troponins, follow-up electrocardiogram, strict inputs and outputs, daily weights. * Agree with the recommendation for by mouth metolazone followed by aggressive IV furosemide as per nephrology recommendations. * Consider Mg catheter given incontinence for better assessment of input/ output. * Follow-up renal function, potassium, magnesium, etc. repeat potassium this evening. * Repeat CXR in a.m. following diuresis. * Continue to follow-up on pulmonary and nephrology recommendations. * Continue to hold angiotensin receptor timi, that she was previously on, for the short-term. * DVT prophylaxis. Continue telemetry? Yes
--- NOTE | 2016-10-03 22:42 | NUR ---
PT HAS 6 RUN OF V TACH. DEAD MAIL CHECKER INFORMED AT ABOUT 2015 ON 10/03/16
--- NOTE | 2016-10-03 22:42 | PN- Att Addend ---
Attending Addendum Attending Brief Note Note that this patient was converted from Observation status to Full Admit status. She has significant volume overload, acute kidney injury and needs IV Lasix and close monitoring of renal function. Unable to discharge at present.
[2016-10-03 23:00] VITALS: BP 132/64
[2016-10-04 07:30] VITALS: BP 130/60
--- NOTE | 2016-10-04 07:48 | PN- Housestaff ---
MLEIZA GARCÍA,[facility] 10/04/16 0747: Subjective Follow-up For: Acute hypercapnic respiratory failure Acute kidney injury on top of chronic kidney disease Bilateral LE cellulitis Tele-Events Since Last Visit: Beulah heart rate 62-92, occasional PVCs, bigeminy and trigeminy Subjective: Patient seen and examined this morning. She was sleeping when I went to the room, she woke up and stated that she is in a lot of pain she has been having trouble going to sleep, had bilateral lower extremity pain. Review of Systems Constitutional: Reports: see HPI. Objective Last 24 Hrs of Vital Signs/I&O Vital Signs Date Time Temp Pulse Resp B/P Pulse O2 O2 Flow FiO2 Ox Delivery Rate 10/04 1000 92 BIPAP 45% 10/04 1000 92 10/04 0800 88 Nasal 10L Cannula 10/04 0730 97.7 94 26 130/60 92 Nasal 10L Cannula 10/04 0009 85 93 10/04 0000 BIPAP 45% 10/03 2300 97.8 68 22 132/64 91 Nasal Cannula 10/03 2230 68 130/62 10/03 1859 82 148/58 10/03 1845 90 Nasal 10L Cannula 10/03 1800 97.4 82 22 148/58 92 Nasal 10L Cannula 10/03 1600 94 Nasal 10L Cannula Intake & Output 10/04 1600 10/04 0800 10/04 0000 Intake Total 220 Output Total 400 Balance -400 220 Intake, IV 20 Intake, Oral 200 Output, Urine 400 Patient 161.932 kg Weight Physical Exam General Appearance: Alert, Oriented X3, Cooperative, No Acute Distress Cardiovascular: Regular Rate, Normal S1, Normal S2, No Murmurs Lungs: exp wheeze bilaterally, Abdomen: Normal Bowel Sounds, Soft, No Tenderness Extremities: No Clubbing, No Cyanosis, swelling, erythema bilateral lower extremities Current Medications: Current Medications Sig/Thanh Start time Last Medication Dose Route Stop Time Status Admin Acetaminophen 650 MG Q8P PRN 09/30 1500 AC PO Albuterol Sulfate 3 ML BID 10/03 2200 AC 10/04 INH 0958 Aspirin 81 MG DAILY 09/30 1234 AC 10/03 PO 0909 Atorvastatin Calcium 80 MG 1700 09/30 1700 AC 10/03 PO 1900 Cephalexin 250 MG Q24 10/04 1000 AC PO Clindamycin 600 MG IQ8 09/30 1600 DC 10/03 Dextrose/Water 50 ML IV 0824 Docusate Sodium 100 MG ONCE ONE 10/03 2200 DC 10/03 PO 10/03 2201 2230 Duloxetine HCl 60 MG DAILY 10/02 1632 AC 10/03 PO 0906 Famotidine 20 MG DAILY 09/30 1235 AC 10/03 PO 0906 Furosemide 80 MG 0730,1630 10/04 0730 AC 10/04 IV 0630 Furosemide 80 MG ONE ONE 10/03 1930 DC 10/03 IV 10/03 1931 1859 Furosemide 80 MG 1000,1600 10/03 1000 DC 10/03 IV 1329 Heparin Sodium 5,000 UNIT Q8 09/30 2200 AC 10/04 (Porcine) SC 0630 Hydralazine HCl 25 MG TID 09/30 1235 AC 10/03 PO 2230 Insulin Aspart 0 TIDAC 09/30 1700 AC 10/04 SC 0955 Insulin Detemir 45 UNITS BID 09/30 2200 AC 10/03 SC 2229 Metolazone 10 MG DAILY 10/04 1000 AC PO 10/06 1001 Metolazone 7.5 MG ONCE ONE 10/03 1205 DC 10/03 PO 10/03 1206 1251 Metoprolol Tartrate 6.25 MG BID 09/30 1235 AC 10/03 PO 0906 Oxycodone/ 1 TAB Q6P PRN 10/02 0845 10/03 Acetaminophen PO 1428 Polyethylene Glycol 17 GM DAILY 10/03 2230 AC PO Prednisone 60 MG DAILY 10/04 1000 AC PO Senna/Docusate Sodium 1 TAB BID 10/03 2200 AC 10/03 PO 2230 Sodium Polystyrene 60 ML ONCE ONE 10/03 1345 DC 10/03 Sulfonate PO 10/03 1346 1421 Tramadol HCl 50 MG Q12P PRN 09/30 1500 AC 10/02 PO 0909 Last 24 Hrs of Lab/Chris Results Last 24 Hrs of Labs/Mics: Laboratory Tests 10/04/16 0605: Anion Gap 12, Estimated GFR 14 L, BUN/Creatinine Ratio 26.6 H, CBC w Diff NO MAN DIFF REQ, RBC 3.95 L, MCV 97.2, MCH 31.3 H, RDW 15.9 H, MPV 8.4, Gran % 84.9 H, Lymphocytes % 5.2 L, Monocytes % 9.9 H, Eosinophils % 0, Basophils % 0 L, Absolute Granulocytes 8.1 H, Absolute Lymphocytes 0.5 L, Absolute Monocytes 0.9 H, Absolute Eosinophils 0, Absolute Basophils 0, PUBS MCHC 32.2 L 10/03/161999: Anion Gap 11, Estimated GFR 15 L, BUN/Creatinine Ratio 28.0 H, Phosphorus 8.9 H, Magnesium 2.7 H 10/03/16 1315: Urine Osmolality 358, Ur Random Creatinine 118.2, Ur Random Sodium 15 L, Ur Random Potassium 43.8, Fraction Sodium Excret 0.3 Microbiology 10/03 131 URINE ROUT: Urine Culture - RES Assessment/Plan Assessment: Patient is 76 year old female with multiple co-morbidities including CHF, b/l lower extremity edema, HTN, HLD, questionable COPD, obesity hypoventilation syndrome, acid reflux, CKD was brought from [facility] after a fall. Recent history of nasal congestion with productive cough of yellowish sputum, worsened bilateral lower extremity edema and redness. Patient is recently discharged from [facility] on 09/15/15 after being treated for b/l lower extremity edema diastolic congestive heart failure with ejection fraction greater than 60%(September 2015) Problem list #Acute hypercapnic respiratory failure #Congestive heart failure with preserved ejection fraction #Bilateral lower extremity cellulitis #Hypertension and hyperlipidemia #Diabetes mellitus #bilateral posterior thigh stage III pressure ulcer #Acute hypercapnic respiratory failure -Patient has history of obesity hypoventilation syndrome with mostly underlying sleep apnea -On admission ABG was pH 7.23, PCO2 74, PaO2 70, bicarbonate 30 -Pulmonology consultation was obtained -DisContinued Solu-Medrol, started on prednisone taper -Continue BiPAP nocturnal -TRC with nebulizer -We contacted the rehabilitation facility regarding BiPAP, the nurse reported that the patient never used the BiPAP that was prescribed on last discharge from the hospital because she never had it and no sleep study was done for her #Congestive heart failure with preserved ejection fraction -Patient has history of diastolic CHF, recent echo September 2015 shows ejection fraction more than 60% Increased lasix to 80 mg BID IV, will receive 10 mg of metolazone 30 min before morning dose of lasix (cardiology and nephrology on board) #DANYELLE on CKD -Creatinine level elevated to 2.9 from 2.5 from yesterday. -per Dr. Amador patient has a hx of proteinuria (he follows up with Dr. Dommu) -patient also has CHF exacerbation and it may have caused prerenal azotemia, that is why diuresis will thought to help the pt despite the elevation in cr -sent urine lytes, urine Pr/creatinine ratio, will follow results -I/O measurement, patient is incontinent, patient agreed that we put a baird catheter in, was concerned about infection induced by the baird, explained to her the pros and cons and that it will be temporary. #Hyperkalemia received kayexalate, recheck K tomorrow and give Kayexalate if necessary #Bilateral lower extremity cellulitis -Patient has history of bilateral lower extremity edema -She reported worsening of the pre-existing redness -The erythema is subsiding -Changed IV clindamycin to PO Keflex - dose was adjusted for creatinine clearance, (Patient has allergy to penicillin but in form of a rash) #Hypertension and hyperlipidemia -Continue metoprolol 6.25 mg twice a day -Continue hydralazine 25 mg 3 times a day -Continue atorvastatin 80 mg daily -Continue aspirin 81 mg daily #Diabetes mellitus -Continue levemir 45 units twice a day -NovoLog sliding scale before meals -Continue accu check #bilateral posterior thigh stage III pressure ulcer -Wound care consultation was obtained -Daily wound cleansing and cover with moist wound care using Xeroform -Recommendation for mobilization to decrease the pressure to these areas -PT evaluation and treat -Diet diabetic consistent c 3 -DVT prophylaxis heparin subcutaneous -Code DNR/DNI -consultation Cardio, Pulm, nephrology, PT Problem List: 1. Respiratory failure 2. CHF (congestive heart failure) Pain Ratin Pain Location: Bilateral lower extremities Pain Goal: Remain pain free Pain Plan: Tylenol Tomorrow's Labs & Rationales: CBC (anemia) BEP (hyperkalemia, elevated Cr) BRETT GARCÍA,[facility] 10/04/16 1322: Attending MD Review Statement Attending Statement Attending MD Statement: examined this patient, discuss w/resident/PA/PASSENGER INTERLINE CLERK, agreed w/resident/PA/PASSENGER INTERLINE CLERK, discussed with family, reviewed EMR data (avail), discussed with nursing, discussed with case mgmt, reviewed images, amended to note Attending Assessment/Plan: Patient seen and examined. Awake and alert in the morning and examined. Still on 10 L of oxygen. Seen by Dr. Pearson today morning. Bilaterally decreased breath sounds, bilateral pedal edema with erythema on the right leg getting better as per the markings on the leg. Blood sugars ranging in 300s. Recommendations: 1. Continue O2, taper as tolerated. 2. Increase NovoLog sliding scale to high dose for better blood sugar control. 3. Worsening Acute kidney [id number] nephrology recommendations, for further diuresis.
[2016-10-04 08:33] LABS: ABSOLUTE BASOPHIL COUNT 0 /CUMM (0.0-0.2); ABSOLUTE EOSINOPHIL COUNT 0 /CUMM (0.0-0.7); ABSOLUTE GRANULOCYTE CT 8.1 /CUMM (1.4-6.5); ABSOLUTE LYMPH COUNT 0.5 /CUMM (1.2-3.4); ABSOLUTE MONOCYTE COUNT 0.9 /CUMM (0.10-0.60); BASOPHIL % 0 % (0.0-2.0); EOSINOPHIL % 0 % (0-5); GRANULOCYTE % 84.9 % (42.2-75.2); HEMATOCRIT 38.4 % (37-47); MEAN CORPUSCULAR HGB 31.3 PG (27.0-31.0); MEAN CORPUSCULAR HGB CONC 32.2 G/DL (33.0-37.0); MEAN CORPUSCULAR VOLUME 97.2 FL (81.0-99.0); MEAN PLATELET VOLUME 8.4 FL (7.4-10.4); PLATELET COUNT 214 /CUMM (130-400); RBC DISTRIBUTION WIDTH 15.9 % (11.5-14.5); RED BLOOD CELL CT 3.95 /CUMM (4.20-5.40); WHITE BLOOD CELL COUNT 9.6 /CUMM (4.8-10.8)
--- NOTE | 2016-10-04 08:54 | PN- Pulmonary ---
Subjective HPI/Critical Care Issues: Patient continues to require high flow oxygen and when necessary BiPAP for hypercapnic history failure in the setting of morbid obesity and congestive heart failure complicated by acute kidney injury Objective Current Medications: Current Medications Sig/Thnah Start time Last Medication Dose Route Stop Time Status Admin Acetaminophen 650 MG Q8P PRN 09/30 1500 AC PO Albuterol Sulfate 3 ML BID 10/03 2200 AC 10/03 INH 1840 Albuterol Sulfate 3 ML EVERY 4 HRS/AWAKE 10/01 0800 DC 10/03 INH 0737 Aspirin 81 MG DAILY 09/30 1234 AC 10/03 PO 0909 Atorvastatin Calcium 80 MG 1700 09/30 1700 AC 10/03 PO 1900 Cephalexin 250 MG Q24 10/04 1000 AC PO Clindamycin 600 MG IQ8 09/30 1600 DC 10/03 Dextrose/Water 50 ML IV 0824 Docusate Sodium 100 MG ONCE ONE 10/03 2200 DC 10/03 PO 10/03 2201 2230 Duloxetine HCl 60 MG DAILY 10/02 1632 AC 10/03 PO 0906 Famotidine 20 MG DAILY 09/30 1235 AC 10/03 PO 0906 Furosemide 80 MG 0730,1630 10/04 0730 AC 10/04 IV 0630 Furosemide 80 MG ONE ONE 10/03 1930 DC 10/03 IV 10/03 1931 1859 Furosemide 80 MG 1000,1600 10/03 1000 DC 10/03 IV 1329 Heparin Sodium 5,000 UNIT Q8 09/30 2200 AC 10/04 (Porcine) SC 0630 Hydralazine HCl 25 MG TID 09/30 1235 AC 10/03 PO 2230 Insulin Aspart 0 TIDAC 09/30 1700 AC 10/03 SC 1757 Insulin Detemir 45 UNITS BID 09/30 2200 AC 10/03 SC 2229 Methylprednisolone 40 MG Q12 09/30 2200 DC 10/03 IV 0909 Metoclopramide HCl 2.5 MG ONCE ONE 10/03 1115 CAN PO 10/03 1116 Metolazone 10 MG DAILY 10/04 1000 AC PO 10/06 1001 Metolazone 7.5 MG ONCE ONE 10/03 1205 DC 10/03 PO 10/03 1206 1251 Metolazone 2.5 MG ONCE ONE 10/03 1130 DC 10/03 PO 10/03 1131 1251 Metoprolol Tartrate 6.25 MG BID 09/30 1235 AC 10/03 PO 0906 Oxycodone/ 1 TAB Q6P PRN 10/02 0845 AC 10/03 Acetaminophen PO 1428 Polyethylene Glycol 17 GM DAILY 10/03 2230 AC PO Prednisone 60 MG DAILY 10/04 1000 AC PO Prednisone 60 MG DAILY 10/03 1000 DC PO Senna/Docusate Sodium 1 TAB BID 10/03 2200 AC 10/03 PO 2230 Sodium Polystyrene 60 ML ONCE ONE 10/03 1345 DC 10/03 Sulfonate PO 10/03 1346 1421 Tramadol HCl 50 MG Q12P PRN 09/30 1500 AC 10/02 PO 0909 Vital Signs & I&O Last 24 Hrs of Vitals and I&O: Vital Signs Date Time Temp Pulse Resp B/P Pulse O2 O2 Flow FiO2 Ox Delivery Rate 10/04 0730 97.7 94 26 130/60 92 Nasal 10L Cannula 10/04 0009 85 93 10/04 0000 BIPAP 45% 10/03 2300 97.8 68 22 132/64 91 Nasal Cannula 10/03 2230 68 130/62 10/03 1859 82 148/58 10/03 1845 90 Nasal 10L Cannula 10/03 1800 97.4 82 22 148/58 92 Nasal 10L Cannula 10/03 1600 94 Nasal 10L Cannula 10/03 0907 97.6 62 20 154/70 10/03 0906 97.6 62 20 154/70 Intake & Output 10/04 1600 10/04 0800 10/04 0000 Intake Total 220 Output Total 400 Balance -400 220 Intake, IV 20 Intake, Oral 200 Output, Urine 400 Patient 357 lb Weight Oxygen saturation 10 L 92% exam for chest shows diminished breath sounds are no wheezes cardiac exam shows regular S1 and S2 Impression/Plan Impression/Plan Impression/Plan: 76-year-old with acute on chronic hypercapnic history failure somewhat improved due to morbid obesity and congestive heart failure. Renal function appears to be worsening. Arterial blood gases are improved Recommendations: Taper FiO2 his saturations allow continue. Nocturnal BiPAP negative fluid balance as renal function allows
--- NOTE | 2016-10-04 11:48 | RADIOLOGY REPORT ---
EXAMINATION: XR PORTABLE CHEST CLINICAL INFORMATION: Decompensated CHF. Evaluate for interval changes. COMPARISON: Several prior chest x-rays, most recent of which is dated 10/03/2016. TECHNIQUE: AP semierect portable view of the chest was obtained. FINDINGS: Evaluation is significantly limited due to apical lordotic technique and low lung volumes and large patient body habitus. Cardiomediastinal silhouette is enlarged and obscured by diffuse fluffy bilateral airspace opacities. When allowing for differences in technique, findings are either similar to slightly progressed compared to prior exam. There are likely bilateral pleural effusions, which obscure the hemidiaphragms. Bony structures are grossly unremarkable. IMPRESSION: Limited study with findings of congestive heart failure and bilateral pleural effusions. Findings are probably similar to slightly progressed compared to the previous exam.
--- NOTE | 2016-10-04 11:49 | NUR ---
Physical therapy: Patient on 10L on bipap. Patient refusing participation with PT at this time due to respiratory status. Will continue to follow up with patient as appropriate. Thank you.
--- NOTE | 2016-10-04 11:50 | PN- Cardiology ---
Subjective Subjective: No obvious cortical change stay. Remains shortness of breath. No other new symptoms from a cardiac standpoint. Objective Vital Signs and I&Os Vital Signs Date Time Temp Pulse Resp B/P Pulse O2 O2 Flow FiO2 Ox Delivery Rate 10/04 1000 92 BIPAP 45% 10/04 1000 92 10/04 0800 88 Nasal 10L Cannula 10/04 0730 97.7 94 26 130/60 92 Nasal 10L Cannula 10/04 0009 85 93 10/04 0000 BIPAP 45% 10/03 2300 97.8 68 22 132/64 91 Nasal Cannula 10/03 2230 68 130/62 10/03 1859 82 148/58 10/03 1845 90 Nasal 10L Cannula 10/03 1800 97.4 82 22 148/58 92 Nasal 10L Cannula 10/03 1600 94 Nasal 10L Cannula Intake & Output 10/04 1600 10/04 0800 10/04 0000 10/03 1600 10/03 0800 10/03 0000 Intake Total 220 540 270 370 Output Total 400 450 Balance -400 220 90 270 370 Intake, IV 20 60 150 80 Intake, Oral 200 480 120 290 Number 0 Bowel Movements Output, Urine 400 450 Patient 357 lb 340 lb 392 lb Weight Current Medications: Current Medications Sig/Thanh Start time Last Medication Dose Route Stop Time Status Admin Acetaminophen 650 MG Q8P PRN 09/30 1500 AC PO Albuterol Sulfate 3 ML BID 10/03 2200 AC 10/04 INH 0958 Aspirin 81 MG DAILY 09/30 1234 AC 10/03 PO 0909 Atorvastatin Calcium 80 MG 1700 09/30 1700 AC 10/03 PO 1900 Cephalexin 250 MG Q24 10/04 1000 AC PO Clindamycin 600 MG IQ8 09/30 1600 DC 10/03 Dextrose/Water 50 ML IV 0824 Docusate Sodium 100 MG ONCE ONE 10/03 2199 DC 10/03 PO 10/03 220 2230 Duloxetine HCl 60 MG DAILY 10/02 1632 AC 10/03 PO 0906 Famotidine 20 MG DAILY 09/30 1235 AC 10/03 PO 0906 Furosemide 80 MG 0730,1630 10/04 0730 AC 10/04 IV 0630 Furosemide 80 MG ONE ONE 10/03 1930 DC 10/03 IV 10/03 1931 1859 Furosemide 80 MG 1000,1600 10/03 1000 DC 10/03 IV 1329 Heparin Sodium 5,000 UNIT Q8 09/30 2200 AC 10/04 (Porcine) [place] 0630 Hydralazine HCl 25 MG TID 09/30 1235 AC 10/03 PO 2230 Insulin Aspart 0 TIDAC 09/30 1700 AC 10/04 SC 0955 Insulin Detemir 45 UNITS BID 09/30 2200 AC 10/03 SC 2229 Metolazone 10 MG DAILY 10/04 1000 AC PO 10/06 1001 Metolazone 7.5 MG ONCE ONE 10/03 1205 DC 10/03 PO 10/03 1206 1251 Metoprolol Tartrate 6.25 MG BID 09/30 1235 AC 10/03 PO 0906 Oxycodone/ 1 TAB Q6P PRN 10/02 0845 AC 10/03 Acetaminophen PO 1428 Polyethylene Glycol 17 GM DAILY 10/03 2230 AC PO Prednisone 60 MG DAILY 10/04 1000 AC PO Senna/Docusate Sodium 1 TAB BID 10/03 2200 AC 10/03 PO 2230 Sodium Polystyrene 60 ML ONCE ONE 10/03 1345 DC 10/03 Sulfonate PO 10/03 1346 1421 Tramadol HCl 50 MG Q12P PRN 09/30 1500 AC 10/02 PO 0909 Results Last 48 Hrs of Labs/Mics: Laboratory Tests 10/04/16 06: Anion Gap 12, Estimated GFR 14 L, BUN/Creatinine Ratio 26.6 H, CBC w Diff NO MAN DIFF REQ, RBC 3.95 L, MCV 97.2, MCH 31.3 H, RDW 15.9 H, MPV 8.4, Gran % 84.9 H, Lymphocytes % 5.2 L, Monocytes % 9.9 H, Eosinophils % 0, Basophils % 0 L, Absolute Granulocytes 8.1 H, Absolute Lymphocytes 0.5 L, Absolute Monocytes 0.9 H, Absolute Eosinophils 0, Absolute Basophils 0, PUBS MCHC 32.2 L 10/03/16 2000: Anion Gap 11, Estimated GFR 15 L, BUN/Creatinine Ratio 28.0 H, Phosphorus 8.9 H, Magnesium 2.7 H 10/03/16 1315: Urine Osmolality 358, Ur Random Creatinine 118.2, Ur Random Sodium 15 L, Ur Random Potassium 43.8, Fraction Sodium Excret 0.3 10/03/16 0605: Anion Gap 9, Estimated GFR 16 L, BUN/Creatinine Ratio 24.8, CBC w Diff NO MAN DIFF REQ, RBC 3.63 L, MCV 96.6, MCH 31.5 H, RDW 15.3 H, MPV 8.4, Gran % 85.6 H, Lymphocytes % 6.3 L, Monocytes % 7.7, Eosinophils % 0, Basophils % 0.4, Absolute Granulocytes 6.2, Absolute Lymphocytes 0.5 L, Absolute Monocytes 0.6, Absolute Eosinophils 0, Absolute Basophils 0, PUBS MCHC 32.6 L 10/02/16 2040: Plasma Potassium 6.0 *H 10/02/16 1434: Ur Random Creatinine Cancelled, U Random Total Protein Cancelled Assessment/Plan Assessment/Plan Assessment: 1. Acute hypercapnic respiratory failure-like the multifactorial 2. Congestive heart failure with preserved ejection fraction 3. Bilateral lower extremity cellulitis 4. Hypertension and hyperlipidemia 5. Diabetes mellitus 6. bilateral posterior thigh stage III pressure ulcer 7. Probable sleep apnea/obesity hypoventilation syndrome 8. Hypertension 9. Hyperlipidemia 10. 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 -The patient's creatinine is increased to 3.2 today. Continue to monitor closely -The patient's fluid status is mildly negative today. Continue to monitor I's and O's as well as weights closely. -Follow-up laboratories in 24 hours. -In view of continued increase in creatinine, await nephrology input prior to any further decisions about diuretic regimen. Continue telemetry? Yes
--- NOTE | 2016-10-04 12:30 | PN- Nephrology ---
Assessment/Plan Assessment: 1. DANYELLE: no improvement; etiolgy unclear --> ? ATN in setting of infection but can't exclude AIN or acute GN. Needs obstruction r/o. 2. CKD: stage 3 due to DM & HTN 3. volume overload: continue diuretics 4. hyperkalemia: improved Suggestion: 1. continue diuretics 2. recheck ABG 3. renal US 4. u/a; urine prot/Cr 5. C3, C4, ANCA 6. LFTs Subjective Subjective: Confused Objective Vital Signs and I&Os Vital Signs Date Time Temp Pulse Resp B/P Pulse O2 O2 Flow FiO2 Ox Delivery Rate 10/04 1156 97.7 94 26 130/60 10/04 1153 97.7 94 26 130/60 10/04 1000 92 BIPAP 45% 10/04 1000 92 10/04 0800 88 Nasal 10L Cannula 10/04 0730 97.7 94 26 130/60 92 Nasal 10L Cannula 10/04 0009 85 93 10/04 0000 BIPAP 45% 10/03 2300 97.8 68 22 132/64 91 Nasal Cannula 10/03 2230 68 130/62 10/03 1859 82 148/58 10/03 1845 90 Nasal 10L Cannula 10/03 1800 97.4 82 22 148/58 92 Nasal 10L Cannula 10/03 1600 94 Nasal 10L Cannula Intake & Output 10/04 1600 10/04 0400 10/03 1600 10/03 0400 10/02 1600 10/02 0400 Intake Total 220 810 370 630 100 Output Total 400 450 Balance -400 220 360 370 630 100 Intake, IV 20 210 80 50 Intake, Oral 200 600 290 580 100 Number 0 Bowel Movements Output, Urine 400 450 Patient 357 lb 340 lb Weight Physical Exam General Appearance: mild distress, obese Head: atraumatic Ears, Nose, Throat: normal ENT inspection Respiratory: decreased breath sounds, respiratory distress Cardiovascular: distant HS Abdomen: soft, non-tender Extremities: swelling (bilat), bilat erythema R>L Skin: leg erythema bilat Current Medications: Current Medications Sig/Thanh Start time Last Medication Dose Route Stop Time Status Admin Acetaminophen 650 MG Q8P PRN 09/30 1500 AC PO Albuterol Sulfate 3 ML BID 10/03 2200 AC 10/04 INH 0958 Aspirin 81 MG DAILY 09/30 1234 AC 10/04 PO 1205 Atorvastatin Calcium 80 MG 1700 09/30 1700 AC 10/03 PO 1900 Cephalexin 250 MG Q24 10/04 1000 AC 10/04 PO 1153 Clindamycin 600 MG IQ8 09/30 1600 DC 10/03 Dextrose/Water 50 ML IV 0824 Docusate Sodium 100 MG ONCE ONE 10/03 2200 DC 10/03 PO 10/03 2200 2230 Duloxetine HCl 60 MG DAILY 10/02 1632 AC 10/03 PO 0906 Famotidine 20 MG DAILY 09/30 1235 AC 10/03 PO 0906 Furosemide 80 MG 0730,1630 10/04 0730 AC 10/04 IV 0630 Furosemide 80 MG ONE ONE 10/03 1930 DC 10/03 IV 10/03 1931 1859 Furosemide 80 MG 1000,1600 10/03 1000 DC 10/03 IV 1329 Heparin Sodium 5,000 UNIT Q8 09/30 2200 AC 10/04 (Porcine) SC 0630 Hydralazine HCl 25 MG TID 09/30 1235 AC 10/04 PO 1153 Insulin Aspart 0 TIDAC 09/30 1700 AC 10/04 SC 1217 Insulin Detemir 45 UNITS BID 09/30 2200 AC 10/04 SC 1149 Metolazone 10 MG DAILY 10/04 1000 AC 10/04 PO 10/06 1001 1154 Metoprolol Tartrate 6.25 MG BID 09/30 1235 AC 10/04 PO 1156 Oxycodone/ 1 TAB Q6P PRN 10/02 0845 AC 10/03 Acetaminophen PO 1428 Polyethylene Glycol 17 GM DAILY 10/03 2230 AC 10/04 PO 1156 Prednisone 60 MG DAILY 10/04 1000 AC 10/04 PO 1153 Senna/Docusate Sodium 1 TAB BID 10/03 2200 AC 10/04 PO 1153 Sodium Polystyrene 60 ML ONCE ONE 10/03 1345 DC 10/03 Sulfonate PO 10/03 1346 1421 Tramadol HCl 50 MG Q12P PRN 09/30 1500 AC 10/02 PO 0909 Results Pertinent Lab Results: Laboratory Tests 10/04 10/03 10/03 0605 2000 1315 Chemistry Sodium (137 - 145 mmol/L) 141 137 Potassium (3.5 - 5.1 mmol/L) 5.0 5.7 H Chloride (98 - 107 mmol/L) 96 L 93 L Carbon Dioxide (22 - 30 mmol/L) 33 H 33 H Anion Gap (5 - 16) 12 11 BUN (7 - 17 mg/dL) 85 H 84 H Creatinine (0.5 - 1.0 mg/dL) 3.2 H 3.0 H Estimated GFR (>60 ml/min) 14 L 15 L BUN/Creatinine Ratio (7 - 25 %) 26.6 H 28.0 H Phosphorus (2.5 - 4.5 mg/dL) 8.9 H Magnesium (1.6 - 2.3 mg/dL) 2.7 H Hematology CBC w Diff NO MAN DIFF REQ WBC (4.8 - 10.8 /CUMM) 9.6 RBC (4.20 - 5.40 /CUMM) 3.95 L Hgb (12.0 - 16.0 G/DL) 12.4 Hct (37 - 47 %) 38.4 MCV (81.0 - 99.0 FL) 97.2 MCH (27.0 - 31.0 PG) 31.3 H RDW (11.5 - 14.5 %) 15.9 H Plt Count (130 - 400 /CUMM) 214 MPV (7.4 - 10.4 FL) 8.4 Gran % (42.2 - 75.2 %) 84.9 H Lymphocytes % (20.5 - 51.1 %) 5.2 L Monocytes % (1.7 - 9.3 %) 9.9 H Eosinophils % (0 - 5 %) 0 Basophils % (0.0 - 2.0 %) 0 L Absolute Granulocytes (1.4 - 6.5 /CUMM) 8.1 H Absolute Lymphocytes (1.2 - 3.4 /CUMM) 0.5 L Absolute Monocytes (0.10 - 0.60 /CUMM) 0.9 H Absolute Eosinophils (0.0 - 0.7 /CUMM) 0 Absolute Basophils (0.0 - 0.2 /CUMM) 0 PUBS MCHC (33.0 - 37.0 G/DL) 32.2 L Urines Urine Osmolality (300 - 1000 MOSM/KG) 358 Ur Random Creatinine (mg/dL) 118.2 Ur Random Sodium (30 - 90 mmol/L) 15 L Ur Random Potassium (mmol/L) 43.8 Fraction Sodium Excret (<1% %) 0.3 10/03 10/02 10/02 0605 2040 1434 Chemistry Sodium (137 - 145 mmol/L) 138 Potassium (3.5 - 5.1 mmol/L) 5.5 H Plasma Potassium (3.4 - 4.4 MMOL/L) 6.0 *H Chloride (98 - 107 mmol/L) 96 L Carbon Dioxide (22 - 30 mmol/L) 33 H Anion Gap (5 - 16) 9 BUN (7 - 17 mg/dL) 72 H Creatinine (0.5 - 1.0 mg/dL) 2.9 H Estimated GFR (>60 ml/min) 16 L BUN/Creatinine Ratio (7 - 25 %) 24.8 Hematology CBC w Diff NO MAN DIFF REQ WBC (4.8 - 10.8 /CUMM) 7.3 RBC (4.20 - 5.40 /CUMM) 3.63 L Hgb (12.0 - 16.0 G/DL) 11.4 L Hct (37 - 47 %) 35.0 L MCV (81.0 - 99.0 FL) 96.6 MCH (27.0 - 31.0 PG) 31.5 H RDW (11.5 - 14.5 %) 15.3 H Plt Count (130 - 400 /CUMM) 197 MPV (7.4 - 10.4 FL) 8.4 Gran % (42.2 - 75.2 %) 85.6 H Lymphocytes % (20.5 - 51.1 %) 6.3 L Monocytes % (1.7 - 9.3 %) 7.7 Eosinophils % (0 - 5 %) 0 Basophils % (0.0 - 2.0 %) 0.4 Absolute Granulocytes (1.4 - 6.5 /CUMM) 6.2 Absolute Lymphocytes (1.2 - 3.4 /CUMM) 0.5 L Absolute Monocytes (0.10 - 0.60 /CUMM) 0.6 Absolute Eosinophils (0.0 - 0.7 /CUMM) 0 Absolute Basophils (0.0 - 0.2 /CUMM) 0 PUBS MCHC (33.0 - 37.0 G/DL) 32.6 L Urines Ur Random Creatinine Cancelled U Random Total Protein Cancelled 10/02 10/02 10/01 0915 0645 1450 Chemistry Sodium (137 - 145 mmol/L) 136 L Potassium (3.5 - 5.1 mmol/L) 5.8 H Chloride (98 - 107 mmol/L) 97 L Carbon Dioxide (22 - 30 mmol/L) 30 Anion Gap (5 - 16) 9 BUN (7 - 17 mg/dL) 65 H Creatinine (0.5 - 1.0 mg/dL) 2.5 H Estimated GFR (>60 ml/min) 19 L BUN/Creatinine Ratio (7 - 25 %) 26.0 H Hematology CBC w Diff NO MAN DIFF REQ WBC (4.8 - 10.8 /CUMM) 6.3 RBC (4.20 - 5.40 /CUMM) 3.72 L Hgb (12.0 - 16.0 G/DL) 11.8 L Hct (37 - 47 %) 35.7 L MCV (81.0 - 99.0 FL) 96.0 MCH (27.0 - 31.0 PG) 31.7 H RDW (11.5 - 14.5 %) 15.7 H Plt Count (130 - 400 /CUMM) 184 MPV (7.4 - 10.4 FL) 8.9 Gran % (42.2 - 75.2 %) 85.1 H Lymphocytes % (20.5 - 51.1 %) 9.8 L Monocytes % (1.7 - 9.3 %) 4.6 Eosinophils % (0 - 5 %) 0 Basophils % (0.0 - 2.0 %) 0.5 Absolute Granulocytes (1.4 - 6.5 /CUMM) 5.4 Absolute Lymphocytes (1.2 - 3.4 /CUMM) 0.6 L Absolute Monocytes (0.10 - 0.60 /CUMM) 0.3 Absolute Eosinophils (0.0 - 0.7 /CUMM) 0 Absolute Basophils (0.0 - 0.2 /CUMM) 0 PUBS MCHC (33.0 - 37.0 G/DL) 33.0 Urines Urine Color Cancelled Urine Clarity Cancelled Urine pH Cancelled Ur Specific Scott Cancelled Urine Protein Cancelled Urine Ketones Cancelled Urine Nitrite Cancelled Urine Bilirubin Cancelled Urine Urobilinogen Cancelled Ur Leukocyte Esterase Cancelled Ur Microscopic Cancelled Urine Hemoglobin Cancelled Urine Glucose Cancelled Imaging/Other Studies: EXAMINATION: XR PORTABLE CHEST CLINICAL INFORMATION: Decompensated CHF. Evaluate for interval changes. COMPARISON: Several prior chest x-rays, most recent of which is dated 10/03/2016. TECHNIQUE: AP semierect portable view of the chest was obtained. FINDINGS: Evaluation is significantly limited due to apical lordotic technique and low lung volumes and large patient body habitus. Cardiomediastinal silhouette is enlarged and obscured by diffuse fluffy bilateral airspace opacities. When allowing for differences in technique, findings are either similar to slightly progressed compared to prior exam. There are likely bilateral pleural effusions, which obscure the hemidiaphragms. Bony structures are grossly unremarkable. IMPRESSION: Limited study with findings of congestive heart failure and bilateral pleural effusions. Findings are probably similar to slightly progressed compared to the previous exam.
--- NOTE | 2016-10-04 14:30 | NUR ---
PATIENT DROWSY/AROUSABLE. PLACE ON BIPAP AT 45% BY RESP THERAPIST FOR ELEVATED CO2 AND BICARB. O2 WITH BIPAP 92%. PATIENT REMAINS DROWSY. VSS. MANAGER PRICING AWARE. WILL FOLLOW PLAN OF CARE.
[2016-10-04 15:35] VITALS: BP 116/64
[2016-10-04 23:01] VITALS: BP 128/60
[2016-10-04 23:12] VITALS: BP 148/78
[2016-10-05 08:00] VITALS: BP 130/70
--- NOTE | 2016-10-05 08:02 | NUR ---
PT VOICED CONCERN TO THIS RN STATING "IM DONE." PT IS CURRENTLY ON BIPAP WHICH MAKES SPEAKING DIFFICULT BUT AFTER SPENDING TIME AND DISCUSSING WISHES WITH THE PT SHE DOES NOT WANT TO BE ON BIPAP ANYMORE. SHE REFUSED ALL AM LABS AND MEDS. I SPOKE WITH CHOLO UPTON AND SHE IS AWARE THAT PT DOES NOT WISH TO STAY ON BIPAP ANY LONGER AND TO DISCUSS COMFORT MESURES. CHOLO IS GOING TO PASS THIS CONCERN TO THE PT'S PRIMARY MEDICAL TEAM TO CONFIRM THAT THIS IS WHAT THE PT WISHES.
--- NOTE | 2016-10-05 10:44 | PN- Pulmonary ---
Subjective HPI/Critical Care Issues: Patient is obtunded with worsening hypercapnic respiratory failure. This is reports she is now Comfort Care with hospice to be contacted Objective Current Medications: Current Medications Sig/Thanh Start time Last Medication Dose Route Stop Time Status Admin Acetaminophen 650 MG Q8P PRN 09/30 1500 AC PO Albuterol Sulfate 3 ML BID 10/03 2200 AC 10/05 INH 0926 Aspirin 81 MG DAILY 09/30 1234 AC 10/04 PO 1205 Atorvastatin Calcium 80 MG 1700 09/30 1700 AC 10/04 PO 1846 Cephalexin 250 MG Q24 10/04 1000 AC 10/04 PO 1153 Duloxetine HCl 60 MG DAILY 10/02 1632 AC 10/03 PO 0906 Famotidine 20 MG DAILY 09/30 1235 AC 10/03 PO 0906 Furosemide 80 MG 0730,1630 10/04 0730 AC 10/04 IV 1846 Heparin Sodium 5,000 UNIT Q8 09/30 2200 AC 10/04 (Porcine) SC 2107 Hydralazine HCl 25 MG TID 09/30 1235 AC 10/04 PO 2105 Insulin Aspart 0 TIDAC 10/04 1700 AC 10/05 SC 0810 Insulin Aspart 0 TIDAC 09/30 1700 DC 10/04 SC 1217 Insulin Detemir 45 UNITS BID 09/30 2200 AC 10/05 SC 1021 Lorazepam 1 MG ONE ONE 10/05 0930 DC 10/05 IV 10/05 0931 0936 Metolazone 10 MG DAILY 10/04 1000 AC 10/04 PO 10/06 1001 1154 Metoprolol Tartrate 6.25 MG BID 09/30 1235 AC 10/04 PO 2105 Oxycodone/ 1 TAB Q6P PRN 10/02 0845 AC 10/04 Acetaminophen PO 2113 Polyethylene Glycol 17 GM DAILY 10/03 2230 AC 10/04 PO 1156 Prednisone 60 MG DAILY 10/04 1000 AC 10/04 PO 1153 Senna/Docusate Sodium 2 TAB BID 10/04 2200 AC 10/04 PO 2106 Senna/Docusate Sodium 1 TAB BID 10/03 2200 DC 10/04 PO 1153 Tramadol HCl 50 MG Q12P PRN 09/30 1500 AC 10/02 PO 0909 Vital Signs & I&O Last 24 Hrs of Vitals and I&O: Vital Signs Date Time Temp Pulse Resp B/P Pulse O2 O2 Flow FiO2 Ox Delivery Rate 10/05 1003 94 Nasal 10L Cannula 10/05 09 95 BIPAP 45% 10/05 09 94 95 10/05 0800 97.9 86 20 130/70 92 BIPAP 45% 10/05 0611 92 93 10/05 0342 78 93 10/05 0139 81 91 10/05 0000 BIPAP 45% 10/04 2312 97.8 100 18 148/78 94 BIPAP 10/04 2104 91 126/70 10/04 210 91 126/70 10/04 2021 94 BIPAP 45% 10/04 2018 86 94 10/04 1847 76 128/60 10/04 1724 80 93 10/04 1600 BIPAP 45% 10/04 1535 96.0 77 18 116/64 96 10/04 1325 92 10/04 1156 97.7 94 26 130/60 10/04 1153 97.7 94 26 130/60 Intake & Output 10/05 1600 10/05 0800 10/05 0000 Intake Total 20 138 Output Total 550 450 Balance 20 -550 -312 Intake, IV 20 18 Intake, Oral 0 120 Output, Urine 550 450 Patient 336 lb Weight Oxygen saturation 2 L 94% exam for chest shows diminished breath sounds and occasional rhonchi cardiac exam shows regular S1 and S2 Impression/Plan Impression/Plan Impression/Plan: 76-year-old with acute on chronic hypercapnic history failure with worsening respiratory function now comfort care hospice to be contacted Recommendations: Further terminal care to be orchestrated by hospice
--- NOTE | 2016-10-05 10:55 | PN- Housestaff ---
MARGARET GARCÍA,[facility] 10/05/16 1055: Subjective Follow-up For: Acute hypercapnic respiratory failure Acute kidney injury on top of chronic kidney disease Bilateral LE cellulitis Subjective: Patient was seen and examined this morning. She has been aggitated and refusing any blood draws as per overnight nurse. She is in distress despite being on BiPAP. She was not very cooperative for examination and expressed that she wanted only comfort care. At this time, she is conscious, oriented and capable of making this decision. Her daughter was called and informed of the situation Review of Systems Constitutional: Denies: see HPI. Objective Last 24 Hrs of Vital Signs/I&O [id number] Physical Exam General Appearance: Alert, Oriented X3, Moderate Distress, patient refused examination Assessment/Plan Assessment: Patient is 76 year old female with multiple co-morbidities including CHF, b/l lower extremity edema, HTN, HLD, questionable COPD, obesity hypoventilation syndrome, acid reflux, CKD was brought from [facility], [place] after a fall. Recent history of nasal congestion with productive cough of yellowish sputum, worsened bilateral lower extremity edema and redness. Patient is recently discharged from [facility] on [facility] after being treated for b/l lower extremity edema diastolic congestive heart failure with ejection fraction greater than 60%(September 2015) Problem list #Acute hypercapnic respiratory failure #Congestive heart failure with preserved ejection fraction #Bilateral lower extremity cellulitis #Hypertension and hyperlipidemia #Diabetes mellitus #bilateral posterior thigh stage III pressure ulcer This morning patient refused lab works, BIPAP, medication and even refused me to examine her. Patient requested comfort care, given her ability to make a decision at this point we proceed with the comfort rout after contacting her daughter. Patient was given 1 dose of Ativan milligrams IV. Patient at 11:30 AM. For more information please see the evident note #Acute hypercapnic respiratory failure -Patient has history of obesity hypoventilation syndrome with mostly underlying sleep apnea -On admission ABG was pH 7.23, PCO2 74, PaO2 70, bicarbonate 30 -Pulmonology consultation was obtained -DisContinued Solu-Medrol, started on prednisone taper -Continue BiPAP nocturnal -TRC with nebulizer -We contacted the rehabilitation facility regarding BiPAP, the nurse reported that the patient never used the BiPAP that was prescribed on last discharge from the hospital because she never had it and no sleep study was done for her #Congestive heart failure with preserved ejection fraction -Patient has history of diastolic CHF, recent echo September 2015 shows ejection fraction more than 60% Increased lasix to 80 mg BID IV, will receive 10 mg of metolazone 30 min before morning dose of lasix (cardiology and nephrology on board) #DANYELLE on CKD -Creatinine level elevated to 2.9 from 2.5 from yesterday. -per Dr. Amador patient has a hx of proteinuria (he follows up with Dr. Maddox) -patient also has CHF exacerbation and it may have caused prerenal azotemia, that is why diuresis will thought to help the pt despite the elevation in cr -sent urine lytes, urine Pr/creatinine ratio, will follow results -I/O measurement, patient is incontinent, patient agreed that we put a baird catheter in, was concerned about infection induced by the baird, explained to her the pros and cons and that it will be temporary. #Hyperkalemia received kayexalate, recheck K tomorrow and give Kayexalate if necessary #Bilateral lower extremity cellulitis -Patient has history of bilateral lower extremity edema -She reported worsening of the pre-existing redness -The erythema is subsiding -Changed IV clindamycin to PO Keflex - dose was adjusted for creatinine clearance, (Patient has allergy to penicillin but in form of a rash) #Hypertension and hyperlipidemia -Continue metoprolol 6.25 mg twice a day -Continue hydralazine 25 mg 3 times a day -Continue atorvastatin 80 mg daily -Continue aspirin 81 mg daily #Diabetes mellitus -Continue levemir 45 units twice a day -NovoLog sliding scale before meals -Continue accu check #bilateral posterior thigh stage III pressure ulcer -Wound care consultation was obtained -Daily wound cleansing and cover with moist wound care using Xeroform -Recommendation for mobilization to decrease the pressure to these areas -PT evaluation and treat -Diet diabetic consistent c 3 -DVT prophylaxis heparin subcutaneous -Code DNR/DNI -consultation Cardio, Pulm, nephrology, PT Problem List: 1. Diabetes mellitus type 2 2. Hypercapnic respiratory failure 3. CHF (congestive heart failure) Pain Ratin Pain Location: n/a Pain Goal: Remain pain free Pain Plan: ativan 1mg IV as needed Tomorrow's Labs & Rationales: none BRETT GARCÍA,[facility] 10/05/16 1326: Attending MD Review Statement Attending Statement Attending MD Statement: examined this patient, discuss w/resident/PA/STATISTICIAN MATHEMATICAL, agreed w/resident/PA/STATISTICIAN MATHEMATICAL, discussed with family, reviewed EMR data (avail), discussed with nursing, discussed with case mgmt, reviewed images, amended to note Attending Assessment/Plan: Patient early in the morning was extremely agitated on BiPAP. Requested the house staff to take her off of BiPAP, and refused all the blood work. She wanted to be comfort measures only. The daughter was called and informed regarding the same. Patient was made comfort measures & given 1 mg dose of Ativan. Patient even before calling for hospice evaluation.
--- NOTE | 2016-10-05 11:25 | NUR ---
PT APPEARS BLUE IN COLOR, NO RESP NOTED. NO PULSE. MD MADE AWARE. PRONOUNED BY DOCTOR AT 11:30 AM. DOCTOR CALLED DAUGHTER.
--- NOTE | 2016-10-05 12:00 | NUR ---
FAMILY AT BEDSIDE.
--- NOTE | 2016-10-05 12:25 | NUR ---
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 DR. GAMEZ AND DR. VOGT MADE AWARE AND STATED THEY WOULD TAKE CARE OF IT.
--- NOTE | 2016-10-05 13:05 | Event Note ---
Event Note Event Note: This morning the nurse reported that Ms. Barnes refused her morning lab and medication and she wanted to be comfort care. The patient was seen and examined and she seemed alert oriented 3, she was very clear about her wishes to change her CODE STATUS to comfort care. Patient's daughter Ms. St, was contacted regarding the updated in her mother's situation and the new CODE STATUS. The patient was given 1 dose of Ativan 1 mg IV at 9:30 AM. At 11:25 AM, the nurse paged me that the patient is cyanotic and she is not responding, patient was examined no heartbeats or respiratory sounds were appreciated, bilateral dilated pupils, the patient announced at 11:30 AM
--- NOTE | 2016-10-05 14:58 | NUR ---
PREPARED FOR JAJA. TRANFERRED PER PROTOCOL.
--- NOTE | 2016-10-07 18:30 | Discharge Summary ---
Visit Information Visit Dates Admission Date: 10/03/16 Discharge Date: 10/05/16 Hospital Course Course Attending Physician: HEYDI SOLORZANO MD Primary Care Physician: MAYTE GARCÍA,MICHELLE Bradford Hospital Course: Patient is 76 year old female with multiple co-morbidities including CHF, b/l lower extremity edema, HTN, HLD, questionable COPD, obesity hypoventilation syndrome, acid reflux, CKD was brought from [facility] after a fall.On examination, she had a laceration over her upper lip, no other injuries sustained with the fall. She had bilateral lower limb cellulitis and shortness of breath. She was disgnosed with the following #Acute hypercapnic respiratory failure #Congestive heart failure with preserved ejection fraction #Bilateral lower extremity cellulitis #Hypertension and hyperlipidemia #Diabetes mellitus #bilateral posterior thigh stage III pressure ulcer On the morning of October 05, the patient refused lab works, BIPAP, medication and even refused a routine physical exam. Patient requested comfort care. Given her ability to make a decision at this point we proceed with the comfort route after contacting her daughter. Patient was given 1 dose of Ativan 1mg IV. Patient at 11:30 AM. #Acute hypercapnic respiratory failure -Patient has history of obesity hypoventilation syndrome with mostly underlying sleep apnea. Pulmonology consultation was obtained -On admission ABG was pH 7.23, PCO2 74, PaO2 70, bicarbonate 30 -Patient was started on Solu-Medrol and switched to prednisone taper -BiPAP nocturnal -TRC with nebulizer -We contacted the rehabilitation facility regarding BiPAP, the nurse reported that the patient never used the BiPAP that was prescribed on last discharge from the hospital because she never had it and no sleep study was done for her #Congestive heart failure with preserved ejection fraction -Patient has history of diastolic CHF, recent echo September 2015 shows ejection fraction more than 60% -lasix to 80 mg BID IV with 10 mg of metolazone 30 min before morning dose of lasix (cardiology and nephrology on board) #DANYELLE on CKD -Creatinine level elevated to 2.9 from 1.9 on admission. -per Dr. Amador patient has a hx of proteinuria (he follows up with Dr. Maddox) -patient also has CHF exacerbation and it may have caused prerenal azotemia, that is why diuresis was thought to help the pt despite the elevation in cr -I/O measurement, patient is incontinent, patient agreed that we put a baird catheter in, was concerned about infection induced by the baird, explained to her the pros and cons and that it will be temporary. #Hyperkalemia -received kayexalate -Improved #Bilateral lower extremity cellulitis -Patient has history of bilateral lower extremity edema -She reported worsening of the pre-existing redness -The erythema was subsiding -IV clindamycin switched to PO Keflex - dose was adjusted for creatinine clearance, (Patient had allergy to penicillin but in the form of a rash) #Hypertension and hyperlipidemia -Metoprolol 6.25 mg twice a day -Hydralazine 25 mg 3 times a day -Atorvastatin 80 mg daily -Aspirin 81 mg daily #Diabetes mellitus -Levemir 45 units twice a day -NovoLog sliding scale before meals #bilateral posterior thigh stage III pressure ulcer -Wound care consultation was obtained -Daily wound cleansing and cover with moist wound care using Xeroform -Recommendation for mobilization to decrease the pressure to these areas -PT evaluation and treat Allergies: Coded Allergies: Fish Containing Products (Intermediate, RASH, VOMITING 09/09/16) SEAFOOD Penicillins (Mild, RASH 09/09/16) adhesive tape (Mild, RASH AND BURNING 09/09/16) alcohol (BURNING SKIN 09/09/16) shellfish derived (RASH, VOMITING 09/09/16) metformin (Intermediate, DIARRHEA, GI UPSET 09/09/16) Disposition Summary Disposition Principal Diagnosis: Acute hypercapnic respiratory failure Additional Diagnosis: Congestive heart failure with preserved ejection fraction Bilateral lower extremity cellulitis Discharge Disposition: Discharge Instructions General Discharge Information Code Status: Comfort Care Only Patient's Diet: Heart healthy Patient's Activity: as tolaerated Follow-Up Instructions/Appts: Patient on 10/05/2016 at 11.30am Copies To: MAYTE GARCÍA,MICHELLE Bradford Attending MD Review Statement Documenting Attending: HEYDI SOLORZANO MD Other Findings: The patient was followed and made comfort measures and in hospital.
== END 2016-10-05 11:30 | disposition expired | DRG 291 ==
LOC: ENRESERVDT → ENRESERVTM → ERH 06:01 → ERHI 11:10 → 1NO 11:10 → ERHI 11:10 → 1NO 17:04
PROVIDERS: Emergency Medicine; Ophthalmology; Student in an Organized Health Care Education/Training Program; ADMIT Internal Medicine
DX: I13.0 Hypertensive heart and chronic kidney disease with heart failure and stage 1 through stage 4 chronic kidney disease, or unspecified chronic kidney disease (principal); J96.92 Respiratory failure, unspecified with hypercapnia; N18.4 Chronic kidney disease, stage 4 (severe); L89.893 Pressure ulcer of other site, stage 3; N17.9 Acute kidney failure, unspecified; L03.116 Cellulitis of left lower limb; I44.1 Atrioventricular block, second degree; I24.8 Other forms of acute ischemic heart disease; E11.21 Type 2 diabetes mellitus with diabetic nephropathy; I50.33 Acute on chronic diastolic (congestive) heart failure; E66.2 Morbid (severe) obesity with alveolar hypoventilation; Z68.44 Body mass index [BMI] 60.0-69.9, adult; Z51.5 Encounter for palliative care; E87.5 Hyperkalemia; E78.5 Hyperlipidemia, unspecified
CPT/HCPCS: 1NP; 84133; 84300; 86021; 86160; 36415; 81001; 82436; 82570; 87086; 93005; 93010; 97110-GP; 97162-GP; 99291; G8978-GP; G8979-GP; J1644; J1940; J2060; J2920; J3490